=== PATIENT | male | born 1975 | race Caucasian/White ===

== ENCOUNTER 2022-02-08 08:48 | Outpatient (REF) | payer BC, SELFPAY ==
--- NOTE | 2022-02-08 08:59 | EMG_ITS ---
Right median and ulnar motor and sensory studies were performed, right radial sensory study was performed, and median and lateral antecubital sensory studies were performed. Paraspinal and some limb muscles were tested with a needle. IMPRESSION: 1. Mild right median neuropathy across carpal tunnel. 2. Chronic right lower cervical radiculopathy. MD NANDO Montoya/DONALD / [id number]
== END 2022-02-08 08:49 | disposition home or self-care (01) ==
LOC: HO.NEURO 08:48
PROVIDERS: PCP Registered Nurse; Visit Provider Registered Nurse
DX: M79.2 Neuralgia and neuritis, unspecified (principal); M79.601 Pain in right arm
CPT/HCPCS: 95886; 95910

== ENCOUNTER 2023-05-20 11:44 | Outpatient (REF) | payer MEDICAID, SELFPAY ==
[2023-05-20 13:14] LABS: MANUAL DIFF FLAG NO
[2023-05-20 13:29] LABS: Basophils Absolute Auto 0.1 X10*3/uL (0.0-0.2); Basophils Percent Auto 0.5 % (0-2); Eosinophils Absolute Auto 0.5 X10*3/uL (0.0-0.4); Eosinophils Percent Auto 3.9 % (0-4); Hematocrit 50.7 % (42.0-52.0); Imm Gran Abs Auto 0.05 X10*3/uL (0.00-0.03); Imm Gran Pct Auto 0.4 % (0.0-0.4); Lymphocytes Absolute Auto 2.4 X10*3/uL (1.2-4.9); Lymphocytes Percent Auto 19.5 % (20-40); Mean Corpuscular HGB Conc 33.5 g/dl (31.0-36.0); Mean Corpuscular Hemoglobin 30.4 pg (27.0-33.0); Mean Corpuscular Volume 90.5 fL (80.0-98.0); Mean Platelet Volume 11.2 fL (9.4-12.4); Monocytes Absolute Auto 0.9 X10*3/uL (0.1-1.2); Monocytes Percent Auto 7.6 % (2-11); Neutrophils Absolute Auto 8.2 x10*3/uL (2.0-8.3); Neutrophils Percent Auto 68.1 % (45-73); Platelet Count 351 X10*3/uL (160-400); Red Cell Distribution Width 12.8 % (11.0-16.0)
[2023-05-20 13:49] LABS: Appearance Urine Clear; Color Urine Dark Yellow; Glucose Urine UA 500 mg/dL (Negative); Leukocyte Esterase Urine Trace (Negative); Nitrite Urine Negative (Negative); PH 5.5 (5.0-9.0); Specific Gravity - Urine >= 1.030 (1.005-1.025); UMIC TRIGGER UACC YES; Urine Blood Negative (Negative); Urine Ketones Trace mg/dL (Negative); Urine Protein 30 (1+) mg/dL (Neg-Trace)
[2023-05-20 14:12] LABS: Bacteria Urine None Seen (None Seen); Hyaline Casts Urine 0-2 /LPF (0-2); UACC Culture Trigger YES
[2023-05-20 14:16] LABS: Alanine Aminotransferase 74 U/L (0-40); Albumin Level 4.2 g/dL (3.5-5.0); Alkaline Phosphatase 96 U/L (39-117); Anion Gap 13 (12-20); Aspartate Amino Transferase 28 U/L (5-37); Bilirubin Total 0.5 mg/dL (0.0-1.0); Blood Urea Nitrogen 18 mg/dL (9-16); Calcium 9.7 mg/dL (8.4-10.2); Carbon Dioxide 27 mmol/L (22-29); Chloride 101 mmol/L (96-108); Estimated Glomerular Filt Rate > 60; Glucose Random 220 mg/dL (60-115); Sodium 137 mmol/L (135-145); Total Protein 7.8 g/dL (6.5-8.0)
== END 2023-05-20 11:45 | disposition home or self-care (01) ==
LOC: HO.HHCL 11:44
PROVIDERS: Visit Provider Registered Nurse
DX: N17.9 Acute kidney failure, unspecified (principal)
CPT/HCPCS: 36415; 80053; 81001; 85025; 87086

== ENCOUNTER 2023-08-23 18:48 | Outpatient (REF) | payer MEDICAID, SELFPAY | END 2023-08-23 18:49 | disposition home or self-care (01) | LOC: HO.HHCLNP 18:48 | PROVIDERS: Visit Provider Registered Nurse | DX: L02.611 Cutaneous abscess of right foot (principal) | CPT/HCPCS: 87070; 87077; 87147; 87186; 87205 ==

== ENCOUNTER 2024-07-29 10:35 | Outpatient (REF) | payer MEDICAID, SELFPAY ==
--- OUTSIDE RECORDS SUMMARY | 2024-07-29 13:01 | XMS_ITS | Encounter Summary ---
Author Organization [employer] Address [address] [place] [address] [address] [place] [address] Care Team Providers Care Mmi Teacher Name Role Phone [facility] Primary Care Provider [phone] Reason for Visit * Reason Onset Date Comments Recieved Call 08/30/2023 Encounter Details Date Type Department Care Team ([facility] st Contact Info) Description 08/30/2023 Telephone [facility] MEDICINE [address] [place], [place] [phone] [facility] [address] [place] [address] Recieved Call Social History Tobacco Use Types Packs/Day Years Used Date Smoking Tobacco: Every Day Cigarettes Smokeless Tobacco: Never Alcohol Use Standard Drinks/Week Comments Yes 0 (1 standard drink = 0.6 oz pur e alcohol) socially Alcohol Answer Date Recorded Frequency of Alcohol Consumption Not on file 08/23/2023 Average Number of Drinks Not on file 024 Frequency of Binge Drinking Not on file 08/02 Score 0 08/23/2023 Depression Answer Date Recorded Patient Health Questionnaire-9 Score 0 08/23/2023 Patient Health Questionnaire-9 Score 0 08/23/2023 Last PHQ-9: Questionnaire Data Not on file 0 08/23/2023 Housing Stability Answer Date Recorded What is your housing situation today? I have roger preston 03/18/[address] you li ve. Do you have problems with any of the following? None of the above 03/18/2023 Food Insecurity Answer Date Recorded Within the past 12 months, y ou worried that your food would run out before you got money to buy more: Never True 03/18/2023 Within the past 12 months,th e food you bought just didn't last and you didn't have enough money to get more: Never True Transportation Answer Date Recorded In the past 12 months, has l ack of transportation kept you from medical appts, meetings, work or from getting things needed for daily living? No 03/18/2023 Utilities Answer Date Recorded In the past 12 months, has t he electric, gas, oil or water company threatened to shut off services in your home? No 05/20/2023 Depression Answer Date Recorded Patient Health Questionnaire-2 Score 0 08/23/2023 Sex and Gender Information Value Date Recorded Sex Assigned at Male 04/02/2022 10:22 AM EDT Legal Sex Male 10:22 AM EDT Gender Identity Male 04/02/2022 10:22 AM EDT Sexual Orientation Lesbian or [place] 04/02/2022 10 :22 AM EDT documented as of this encounter Miscellaneous Notes * Telephone Encounter - César Polo - 08/30/2023 10:42 AM EDT Tc from pt stating received a call this morning, literary writer didn't see any notations. documented in this encounter Plan of Treatment Not on file documented as of this encounter Visit Diagnoses Not on filedocumented in this encounter Additional Health Concerns Assessment Noted Time PHQ-9 Depression Total Score: 0 08/23/19 24 9:11 AM EDT documented as of this encounter Care Teams Mmi Teacher Relationship Specialty Start Date End Date Edwina Braxton FNP [address] [place] [address] PCP - General Family Medicine 03/01/21 documented as of this encounter
--- OUTSIDE RECORDS SUMMARY | 2024-07-29 13:02 | XMS_ITS | Encounter Summary ---
Author Organization [employer] Address [address] [place] [address] [address] [place] [address] Care Team Providers Care Well Service Derrick Worker Name Role Phone Edwina Braxton Primary Care Provider [phone] Encounter Details Date Type Department Care Team (Late st Contact Info) Description 12/05/2022 Abstract [facility] MEDICINE [address] [place], [place] [phone] Edwina Braxton FNP [address] [place] [address] Social History Tobacco Use Types Packs/Day Years Used Date Smoking Tobacco: Every Day Cigarettes Smokeless Tobacco: Never Alcohol Use Standard Drinks/Week Comments Never 0 (1 standard drink = 0.6 oz pur e alcohol) Sex and Gender Information Value Date Recorded Sex Assigned at Male 04/02/2022 10:22 AM EDT Legal Sex Male 10:22 AM EDT Gender Identity Male 04/02/2022 10:22 AM EDT Sexual Orientation Lesbian or [place] 04/02/2022 10 :22 AM EDT COVID-19 Exposure Response Date Recorded In the last 10 days, have yo u been in contact with someone who was confirmed or suspected to have Coronavirus/COVID-19? No / Unsure 11/21/2022 8:50 AM EDT documented as of this encounter Plan of Treatment Not on file documented as of this encounter Visit Diagnoses Not on filedocumented in this encounter Additional Health Concerns Assessment Noted Time PHQ-9 Depression Total Score: 0 06/28/19 23 11:27 AM EST documented as of this encounter Care Teams Well Service Derrick Worker Relationship Specialty Start Date End Date Edwina Braxton FNP [address] [place] [address] PCP - General Family Medicine 03/01/21 documented as of this encounter
--- OUTSIDE RECORDS SUMMARY | 2024-07-29 13:02 | XMS_ITS | Encounter Summary ---
Author Organization [employer] Address [address] [place] [address] [address] [place] [address] Care Team Providers Care Dry Cleaning Attendant Name Role Phone Edwina Braxton Primary Care Provider [phone] Encounter Details Date Type Department Care Team (Late st Contact Info) Description 12/05/2022 Abstract [facility] MEDICINE [address] [place], [place] [phone] Edwina Braxton FNP [address] [place] [address] Social History Tobacco Use Types Packs/Day Years [...] documented as of this encounter Care Teams Dry Cleaning Attendant Relationship Specialty Start Date End Date Edwina Braxton FNP [address] [place] [address] PCP - General Family Medicine 03/01/21 documented as of this encounter
--- OUTSIDE RECORDS SUMMARY | 2024-07-29 13:02 | XMS_ITS | Encounter Summary ---
Author Organization [employer] Address [address] [place] [address] 7 [place] [address] Care Team Providers Care Community Support Professional Name Role Phone [facility] Primary Care Provider [phone] Reason for Visit * Reason Comments Annual Exam Encounter Details Date Type Department Care Team ([facility] Contact Info) Description 07/29/2024 9:30 AM EST Office Visit [facility] & PEDS [address] [place], [place] [phone] [facility] [address] [place] [address] Type 2 diabetes mellitus with hyperglycemia, with long-term current use of insulin ([facility]); Type 2 diabetes mellitus with hyperglycemia, without long-term current use of insulin ([facility]) Social History Tobacco Use Types Packs/Day Years [...] Answer Date Recorded Patient Health Questionnaire-9 Score 4 07/29/2024 Patient Health Questionnaire-9 Score 4 07/29/2024 Last PHQ-9: Questionnaire Data Not on file 0 07/29/2024 Housing Stability Answer Date Recorded What is [...] Answer Date Recorded Patient Health Questionnaire-2 Score 2 07/29/2024 Internet Access Answer Date Recorded Internet Access Q1 Yes 07/15/2024 Internet Access Q2 Not on file 07/15/2024 Sex and Gender Information Value Date Recorded Sex Assigned at Male 04/02/2022 10:22 AM EDT Legal Sex Male 10:22 AM EDT Gender Identity Male 04/02/2022 10:22 AM EDT Sexual Orientation Lesbian or [place] 04/02/2022 10 :22 AM EDT documented as of this encounter Last Filed Vital Signs Vital Sign Reading Time Taken Comments Blood Pressure 94/57 07/29/2024 9:32 AM EST Pulse 108 07/29/2024 9:32 AM EST Temperature 36.9 ??C (98.5 ??F) 07/29/2024 9:32 AM ES T Respiratory Rate 20 07/29/2024 9:32 AM EST Oxygen Saturation 96% 07/29/2024 9:32 AM EST Inhaled Oxygen Concentration - - Weight 157 kg (346 lb) 07/29/2024 9:32 AM EST Height 177.8 cm (5' 10 ) 07/29/2024 9:32 AM EST Body Mass Index 49.65 07/29/2024 9:32 AM EST documented in this encounter Plan of Treatment Scheduled Orders Name Type Priority Associated Diagnoses Orde r Schedule Comprehensive Metabolic Panel Lab Routine Type 2 diabetes mellitus with hyperglycemia, with long-term current use of insulin ([facility]) Expected: 07/29/2024 (Approximate), Expires: 07/29/2025 CBC auto differential Lab Routine Type 2 diabetes mellitus with hyperglycemia, with long-term current use of insulin ([facility]) Expected: 07/29/2024 (Approximate), Expires: 07/29/2025 Sed Rate by Modified [place] Lab Routine Type 2 diabetes mellitus with hyperglycemia, with long-term current use of insulin ([facility]) Expected: 07/29/2024, Expires: 07/29/2025 C-reactive Protein Lab Routine Type 2 diabetes mellitus with hyperglycemia, with long-term current use of insulin ([facility]) Expected: 07/29/2024 (Approximate), Expires: 07/29/2025 documented as of this encounter Procedures Procedure Name Priority Date/Time Associated Diagnosis Comments POCT URINALYSIS DIPSTICK Routine 07/29/2024 11:06 AM EST Type 2 diabetes mellitus with hyperglycemia, with long-term current use of insulin ([facility]) POCT GLUCOSE Routine 07/29/2024 9:35 AM EST Type 2 diabetes mellitus with hyperglycemia, with long-term current use of insulin ([facility]) POCT GLYCATED HEMOGLOBIN, TOTAL Routine 07/29/2024 9:34 AM EST Type 2 diabetes mellitus with hyperglycemia, with long-term current use of insulin ([facility]) documented in this encounter Results * (ABNORMAL) POCT urinalysis dipstick manually resulted (07/29/2024 11:06 AM EST) Color, UA Yellow Clarity, UA Cloudy Glucose, UA 3+ 500+++ Comment:500 Bilirubin, UA Negative Ketones, UA Positive Comment:trace Spec Grav, UA 1.020 Blood, UA Positive(A) Negative, None Detected Comment:moderate pH, UA 6.0 Protein, UA Moderate Comment:100 mg/dL Urobilinogen, UA 0.2 Leukocytes, UA Many(A) Negative, Rare, Trace Nitrite, UA Negative Negative, None Detected Comment:small Appearance, UA cloudy QC Media Lot # Comment:[id number] Lot# Expiration Date Comment:03/02/2025 Urine 07/29/2024 11:0 6 AM EST Result [facility] POINT OF CARE TEST ENTER/EDIT ORDERABLES Final Result * (ABNORMAL) POCT glucose manually resulted (07/29/2024 9:35 AM EST) Glucose Blood, POC 500(A) 60 - 200 mg/dL Comment:[facility] QC Media Lot # Comment:[id number] Lot# Expiration Date Comment:12/03/2024 Blood Capillary blood specimen / Unknown 07/29/2024 9:35 AM EST Result [facility] POINT OF CARE TEST ENTER/EDIT ORDERABLES Final Result * (ABNORMAL) POCT A1C (07/29/2024 9:34 AM EST) Hemoglobin A1C 15.0(A) 4.0 - 6.0 % Comment:Error #106 (more maeve n 15.0) QC Media Lot # Comment:[id number] Lot# Expiration Date Comment:03/20/2026 Blood 07/29/2024 9:34 AM EST Result [facility] POINT OF CARE TEST ENTER/EDIT ORDERABLES Final Result documented in this encounter Visit Diagnoses Diagnosis Type 2 diabetes mellitus with hyperglycemia, with long-term current use of insulin ([facility]) Type 2 diabetes mellitus with hyperglycemia, without long-term current use of insulin ([facility]) documented in this encounter Administered Medications Inactive Administered Medications - up to 3 most recent administrations Medication Order MAR Action Action Date Dose Rate Site Insulin Lispro solution 10 Units 10 Units, Injection, Once, On Sat07/29/24 at 1015, For 1 doseIndications:Type 2 diabetes mellitus with hyperglycemia, with long-term current use of insulin ([facility]) Given 07/29/2024 10:15 AM EST 10 Units Right Arm documented in this encounter Additional Health Concerns Assessment Noted Time PHQ-9 Depression Total Score: 4 07/29/19 10:06 AM EST documented as of this encounter Care Teams Community Support Professional Relationship Specialty Start Date End Date IraisEdwina wood [facility] [address] [place] [address] PCP - General Family Medicine 03/01/21 documented as of this encounter
--- OUTSIDE RECORDS SUMMARY | 2024-07-29 13:02 | XMS_ITS | Encounter Summary ---
Author Organization [employer] Address [address] [place] [address] [address] [place] [address] Care Team Providers Care Maternity Floor Supervisor Name Role Phone Edwina Braxton Primary Care Provider [phone] Encounter Details Date Type Department Care Team (Late st Contact Info) Description 12/05/2022 Abstract [facility] MEDICINE [address] [place], [place] [phone] Edwina Braxton FNP [address] [place] [address] Social History Tobacco Use Types Packs/Day Years [...] documented as of this encounter Care Teams Maternity Floor Supervisor Relationship Specialty Start Date End Date Edwina Braxton FNP [address] [place] [address] PCP - General Family Medicine 03/01/21 documented as of this encounter
--- OUTSIDE RECORDS SUMMARY | 2024-07-29 13:02 | XMS_ITS | Encounter Summary ---
Author Organization [facility] Address [address] [place] [address] Phone Care Team Providers Care Bow Rehairer Name Role Phone [facility] Primary Care Provider [phone] Encounter Details Date Type Department Care Team (Late st Contact Info) Description 12/26/2021 Documentation Only [facility], [address] [place] [address] [facility] [address] [place] [address] Social History Tobacco Use Types Packs/Day Years Used Date Smoking Tobacco: Never Assessed Sex and Gender Information Value Date Recorded Sex Assigned at Not on file Legal Sex Male 10:40 AM EDT Gender Identity Not on file Sexual Orientation Not on file documented as of this encounter Plan of Treatment Not on file documented as of this encounter Visit Diagnoses Not on filedocumented in this encounter Care Teams Bow Rehairer Relationship Specialty Start Date End Date [facility] [address] [place] [address] PCP - General 07/03/22 documented as of this encounter
--- OUTSIDE RECORDS SUMMARY | 2024-07-29 13:02 | XMS_ITS | Continuity of Care Document ---
Author Organization [facility] Address [address] [place] [address] [address] [place] [address]- Care Team Providers Care Carbon Brushes Assembler Name Role Phone [place] CUSTOMER ASSISTANCE ASSOCIATE, Edwina Primary Care Physician Encounter [facility] [place] ACCT R [id number] Date(s): 06/17/24 - 07/17/[address] [place], [place] [address] Attending Physician: Ciera Rodgers Admitting Physician: Ciera Rodgers Referring Physician: AdmtrCiera Encounter Type: Triage Allergies, Adverse Reactions, Alerts Substance Criticality Severity Reaction Reaction Severity Status penicillin hives Resolved penicillin V potassium 1 hives Active procaine penicillin hives Active 1Outside Source Comment: Other reaction(s): questionable Medications amLODIPine 10 mg oral tablet 1 tablet = 10 mg, By Mouth, Daily in AM, # 30 tablet, 0 Refills, Maintenance, 05/02/23 1:51:00 AM EST, Tablet, Partial fill upon patient request if the prescription is for a schedule II opioid drug. Start Date: 05/02/23 Status: Ordered Quantity: 30.0 Unit: tablet Repeat number: 1 aspirin 81 mg oral delayed release tablet 81 mg, By Mouth, Daily, # 30 tablet, Refills 0, Tot. Refills 0, Maintenance, 11/24/22 12:40:00 PM EDT, Route to Pharmacy Electronically, [facility]/pharmacy #[id number], Partial fill upon patient request if the prescription is for a schedule II opioid drug., 179, cm, 11/23/22 20:09:00 EDT, Height, 173, kg, 11/23/22 10:58:00 EDT, Dry Weight Start Date: 11/24/22 Stop Date: 12/24/22 Status: Ordered Quantity: 30.0 Unit: tablet Repeat number: 1 atorvastatin 80 mg oral tablet 1 tablet = 80 mg, By Mouth, Daily in AM, # 90 tablet, 0 Refills, Maintenance, 05/02/23 1:51:00 AM EST, Tablet, Partial fill upon patient request if the prescription is for a schedule II opioid drug. Start Date: 05/02/23 Status: Ordered Quantity: 90.0 Unit: tablet Repeat number: 1 Colace sodium 100 mg oral capsule 100 mg, 1, capsule, By Mouth, 2 times a day, PRN, # 20 capsule, Refills 0, Tot. Refills 0, Maintenance, for constipation, 02/05/24 4:54:00 PM EDT, Route to Pharmacy Electronically, [facility], Partial fill upon patient request if the prescription is for a schedule II opioid drug., 177.8, cm, 02/05/24 10:39:00 EDT, Height, 160.9, kg, 02/05/24 10:39:00 EDT, Dry Weight Start Date: 02/05/24 Status: Ordered Quantity: 20.0 Unit: capsule Repeat number: 1 Colace sodium 100 mg oral capsule 100 mg, 1, capsule, By Mouth, 2 times a day, # 60 capsule, Refills 0, Tot. Refills 0, Maintenance, 11/26/23 8:25:00 AM EDT, Route to Pharmacy Electronically, [facility], Partial fill upon patient request if the prescription is for a schedule II opioid drug., 178, cm, 11/23/23 9:38:00 ED T, Height, 167, kg, 11/21/23 8:50:00 EDT, Dry Weight Start Date: 11/26/23 Status: Ordered Quantity: 60.0 Unit: capsule Repeat number: 1 Eliquis 5 mg oral tablet 1 tablet = 5 mg, By Mouth, 2 times a day, # 60 tablet, 5 Refills, Maintenance, 05/02/23 1:51:00 AM EST, Tablet, Partial fill upon patient request if the prescription is for a schedule II opioid drug. Start Date: 05/02/23 Status: Ordered Quantity: 60.0 Unit: tablet Repeat number: 1 escitalopram 20 mg oral tablet 1 tablet = 20 mg, By Mouth, Daily in AM, # 30 tablet, 0 Refills, Maintenance, 11/10/23 11:34:00 AM EDT, Tablet, Partial fill upon patient request if the prescription is for a schedule II opioid drug. Start Date: 11/10/23 Status: Ordered Quantity: 30.0 Unit: tablet Repeat number: 1 Flomax 0.4 mg oral capsule 0.4 mg, By Mouth, Daily at bedtime, # 7 capsule, Refills 0, Tot. Refills 0, Maintenance, 02/06/24 11:55:00 AM EDT, Route to Pharmacy Electronically, [facility], Partial fill upon patient request if the prescription is for a schedule II opioid drug., 177.8, cm, 02/06/24 7:36:00 EDT, Height, 160.9, kg, 02/05/24 10:39:00 EDT, Dry Weight Start Date: 02/06/24 Stop Date: 02/13/24 Status: Ordered Quantity: 7.0 Unit: capsule Repeat number: 1 isopropyl alcohol 70% topical pad 100 each, 0 Refill(s), USE TO CHECK BLOOD SUGAR FOUR TIMES A DAY, 0 Refills, 12/23/23 11:02:00 AM EDT, Partial fill upon patient request if the prescription is for a schedule II opioid drug. Start Date: 12/23/23 Status: Ordered Repeat number: 1 Lantus Solostar Pen 100 units/mL subcutaneous solution = 15 units, Subcutaneous Injection, Daily at bedtime, # 10 mL, 0 Refills, Maintenance, 05/02/23 1:53:00 AM EST, Solution, Partial fill upon patient request if the prescription is for a schedule II opioid drug. Start Date: 05/02/23 Status: Ordered Quantity: 10.0 Unit: mL Repeat number: 1 lidocaine 5% topical film 1 patch, Topically, Daily, PRN Pain , Mild, remove after 12 hours, # 13 each, 0 Refills, Maintenance, 05/02/23 1:52:00 AM EST, Film, Partial fill upon patient request if the prescription is for a schedule II opioid drug. Start Date: 05/02/23 Status: Ordered Quantity: 13.0 Unit: each Repeat number: 1 LORazepam 0.5 mg oral tablet 1 tablet = 0.5 mg, By Mouth, Every 8 hours, PRN as needed for anxiety, 0 Refills, Maintenance, 05/02/23 1:53:00 AM EST, Tablet, Partial fill upon patient request if the prescription is for a scheduleII opioid drug. Start Date: 05/02/23 Status: Ordered Repeat number: 1 MetFORMIN (Eqv-Glucophage XR) 500 mg oral tablet, extended release 1 tablet = 500 mg, By Mouth, Daily in AM, TAKE 1 TABLET DAILY BY MOUTH. IF TOLERATING WELL MAY INCREASE TO 1 TABLET TWICE DAILY Start Date: 05/02/23 Status: Ordered Repeat number: 1 Mounjaro 2.5 mg/0.5 mL subcutaneous solution = 2.5 mg, Subcutaneous Injection, Every week, DIRECTED Start Date: 11/10/23 Status: Ordered Repeat number: 1 nicotine 21 mg/24 hr transdermal film, extended release 1 patch, Topically, Daily, # 30 patch, 0 Refills, Maintenance, 05/02/23 1:53:00 AM EST, Patch, Partial fill upon patient request if the prescription is for a schedule II opioid drug. Start Date: 05/02/23 Status: Ordered Quantity: 30.0 Unit: patch Repeat number: 1 olmesartan 5 mg oral tablet 2 tablet = 10 mg, By Mouth, Daily in AM, # 60 tablet, 0 Refills, Maintenance, 05/02/23 1:50:00 AM EST, Tablet, Partial fill upon patient request if the prescription is for a schedule II opioid drug. Start Date: 05/02/23 Status: Ordered Quantity: 60.0 Unit: tablet Repeat number: 1 pantoprazole 40 mg oral delayed release tablet 1 tablet = 40 mg, By Mouth, Daily at supper, TAKE 1 TABLET (40 MG) BY MOUTH BEFORE BREAKFAST Start Date: 05/02/23 Status: Ordered Repeat number: 1 Toudarion Max SoloStar 300 units/mL subcutaneous solution INJECT 40 UNITS SUBCUTANEOUSLY EVERY DAY AT BEDTIME MAY INCREASE BY 2 UNITS EVERY 3 DAYS UP TO max OF 50 UNITS Start Date: 11/10/23 Status: Ordered Repeat number: 1 Trulicity Pen 4.5 mg/0.5 mL subcutaneous solution = 0.5 mL, Subcutaneous Injection, Every week, rotate injection sites, # 2 mL, 0 Refills, Maintenance, 05/02/23 1:51:00 AM EST, Solution, Partial fill upon patient request if the prescription is for aschedule II opioid drug. Start Date: 05/02/23 Status: Ordered Quantity: 2.0 Unit: mL Repeat number: 1 Problem List Condition Confirmation Course Effective Dates Status Health St atus Informant Anxiety Confirmed Active Atrial fibrillation Confirmed Active Stroke Confirmed Active Diabetes mellitus Confirmed Active General medical Confirmed Active HLD (hyperlipidemia) Confirmed Active HTN (hypertension) Confirmed Active Pre-syncope Confirmed Active Obesity Confirmed Active Open wound of groin Confirmed Active Open wound of groin Confirmed Active Severe obesity Confirmed Active Severe obesity Confirmed Active Tobacco use Confirmed Active Brain TIA Confirmed Active Social History Social History Type Response Smoking Status Smoker, current stat us unknown; Other: Quitting today, 05/02, was smoking 0.5 - 1 ppd for 17 years; entered on: 05/02/23 Sex Sex Representation Male (finding) Patient Care team information Care Team Personnel Name: Sherly Alvarez RN Position: [facility] RN Member Role: Primary Care Nurse Name: Arnold Paris RN Position: [facility] ED RN W/OE and Tasks Member Role: Primary Care Nurse Name: Saravanan Villalobos RN Position: [facility] RN Member Role: Primary Care Nurse Name: Jodie Morley RN Position: [facility] RN Member Role: Primary Care Nurse Name: Crista Leal RN Position: [facility] RN Member Role: Primary Care Nurse Name: Tahir Bunch RN Position: [facility] RN Member Role: Primary Care Nurse Name: Antonio Olson LPN Position: [facility] RN Member Role: Primary Care Nurse Name: Adalberto Jaime RN Position: [facility] RN Member Role: Primary Care Nurse Name: Felicia Petersen RN Position: [facility] RN Member Role: Primary Care Nurse Name: Jasson Jc RN Position: [facility] RN Member Role: Primary Care Nurse Name: Suzy Dubon RN Position: [facility] RN Member Role: Primary Care Nurse Name: Marlen Fagan RN Position: [facility] RN Member Role: Primary Care Nurse Name: Ioana Del Rio RN Position: [facility] RN Member Role: Primary Care Nurse Name: Malathi Franklin RN Position: [facility] RN Member Role: Primary Care Nurse Name: Zabrina Villalobos RN Position: [facility] RN Member Role: Primary Care Nurse Name: Nghia Beach RN Position: [facility] RN Member Role: Primary Care Nurse Name: Irais CUSTOMER ASSISTANCE ASSOCIATEEdwina Position: Reference Physician Member Role: PCP Address: [address] [place] [address]- Telecom: Name: Danie De La Garza RN Position: [facility] RN Member Role: Primary Care Nurse Name: Tessie Logan RN Position: [facility] ED RN W/OE and Tasks Member Role: Primary Care Nurse Name: Willie Jay Position: S RN Member Role: Primary Care Nurse Care Team Related Persons Name: BERONICA LIGHT Name: BERONICA LIGHT Insurance Providers Guarantor name: ROBY Health Plan Information #: 1 Payer: [employer] Member Number: ROBY Policy Number: ROBY Group Number: [id number]
--- OUTSIDE RECORDS SUMMARY | 2024-07-29 13:02 | XMS_ITS | Encounter Summary ---
Author Organization [email or web address] Address [address] [place] [address] [address] [place] [address] Care Team Providers Care Network Manager Name Role Phone Edwina Braxton Primary Care Provider [phone] Encounter Details Date Type Department Care Team (Late st Contact Info) Description 12/05/[address] [facility] MEDICINE [address] [place], [place] [id number] Edwina Braxton FNP [address] [place] [address] Social History Tobacco Use Types Packs/Day Years [...] documented as of this encounter Care Teams Network Manager Relationship Specialty Start Date End Date Edwina Braxton FNP [address] [place] [address] PCP - General Family Medicine 03/01/21 documented as of this encounter
--- OUTSIDE RECORDS SUMMARY | 2024-07-29 13:02 | XMS_ITS | Clinical Summary ---
Author Organization [employer] Address [address] [place] [address] 7 [place] [address] Care Team Providers Care Mark Up Designer Name Role Phone Edwina Braxton [facility] Primary Care Provider [phone] Allergies Active Allergy Reactions Criticality Noted Date Comments Penicillin G 02/12/2022 Penicillin V Other reaction(s): questionable Potassium 02/12/2022 Medications * This document contains information received from the source organization and may not represent a complete record from that organization. nicotine polacrilex (Commit) 4 MG lozengeIndicati ons:Smoking 1/2 pack a day or less Dissolve 1 lozenge (4 mg) in the mouth every 2 (two) hours if needed for smoking cessation. 100 lozenge 1 023 Active acetaminophen (Tylenol) 500 MG tablet Take 1 tablet by mouth every 12 (twelve) hours if needed. Active Blood Glucose Monitoring Suppl (GNP Easy Touch Glucose Meter) deviceIndicatio ns:Type 2 diabetes mellitus with hyperglycemia, without long-term current use of insulin ([facility]) Use as directed to check blood sugar four times daily 1 each 023 Active lidocaine (Lidoderm) 5 % patchIndication s:Neuralgia APPLY 1 PATCH IN THE MORNING REMOVE AND DISARD PATCH WITHIN 12 HOURS OR DIRECTED 90 patch 3 024 Active Emollient (Aquaphor Advanced Therapy) 41 % ointmentIndicat ions:Type 2 diabetes mellitus with hyperglycemia, without long-term current use of insulin (CMS/HCC) Apply 2 Applications topically 2 times daily. 50 g 3 024 2024 Active Continuous Glucose Customer Success Director (FreeStyle Shivam 2 [place]) deviceIndicatio ns:Type 2 diabetes mellitus with hyperglycemia, with long-term current use of insulin ([facility]) Scan sensor every 8 hours 1 each Active Continuous Glucose Sensor (FreeStyle Shivam 2 Sensor) miscIndications :Type 2 diabetes mellitus with hyperglycemia, with long-term current use of insulin (CMS/HCC) Apply 1 sensor every 14 days 2 each 2 Active metFORMIN XR (Glucophage-XR) 500 MG 24 hr tabletIndicatio ns:Type 2 diabetes mellitus with hyperglycemia, without long-term current use of insulin (CMS/[facility]) TAKE 1 TABLET DAILY BY MOUTH. IF TOLERATING WELL MAY INCREASE TO 1 TABLET TWICE DAILY 180 tablet 1 Active escitalopram (Lexapro) 20 MG tabletIndicatio ns:Anxiety and depression Take 1 tablet (20 mg) by mouth Once per day. OK to increase to 10mg if tolerating well 90 tablet 1 024 2024 Active Aspirin Low Dose 81 MG EC tabletIndicatio ns:Type 2 diabetes mellitus with hyperglycemia, without long-term current use of insulin ([facility]) TAKE 1 TABLET (81 MG) BY MOUTH IN THE MORNING 90 tablet 3 024 2024 Active Eliquis 5 MG tabletIndicatio ns:History of stroke TAKE 1 TABLET BY MOUTH TWICE A DAY IN THE MORNING AND IN THE EVENING 180 tablet 1 Active olmesartan (BENIcar) 5 MG tabletIndicatio ns:Primary hypertension TAKE 2 TABLETS BY MOUTH EVERY MORNING 180 tablet 1 Active atorvastatin (Lipitor) 80 MG tabletIndicatio ns:History of stroke TAKE 1 TABLET (80 MG) BY MOUTH IN THE MORNING 90 tablet 1 Active pantoprazole (ProtoNix) 40 MG EC tabletIndicatio ns:History of stroke TAKE 1 TABLET (40 MG) BY MOUTH BEFORE BREAKFAST 90 tablet 1 Active Alcohol Swabs (Alcohol Prep) 70 % padsIndications :Type 2 diabetes mellitus with hyperglycemia, without long-term current use of insulin (CMS/[facility]) USE TO CHECK BLOOD SUGAR FOUR TIMES A DAY 100 each 11 Active nicotine (Nicoderm, Step 1) 21 MG/24HR patch PLACE 1 PATCH ON THE SKIN 1 TIME EACH DAY AT THE SAME TIME. 28 patch 3 Active FreeStyle lancetsIndicati ons:Type 2 diabetes mellitus with hyperglycemia, without long-term current use of insulin (CMS/HCC) USE DIRECTED TO CHECK BLOOD SUGAR FOUR TIMES DAILY 100 each 5 Active amLODIPine (Norvasc) 10 MG tabletIndicatio ns:Primary hypertension TAKE 1 TABLET BY MOUTH EVERY MORNING 90 tablet 3 025 Active LORazepam (Ativan) 0.5 MG tabletIndicatio ns:Anxiety and depression TAKE 1 TABLET (0.5 MG) BY MOUTH EVERY 6 (SIX) HOURS IF NEEDED FOR ANXIETY. 10 tablet Active glucose blood (FREESTYLE LITE) test stripIndication s:Type 2 diabetes mellitus with hyperglycemia, without long-term current use of insulin ([facility]) USE DIRECTED TO CHECK BLOOD SUGAR FOUR TIMES DAILY 100 strip 11 Active Tirzepatide (Mounjaro) 5 MG/0.5ML solution auto-injectorIn dications:Type 2 diabetes mellitus with hyperglycemia, with long-term current use of insulin ([facility]) Inject 5 mg under the skin 1 (one) time per week. 2 mL 3 Active insulin glargine (Lantus SoloStar) 100 UNIT/ML penIndications: Type 2 diabetes mellitus with hyperglycemia, with long-term current use of insulin ([facility]) Inject 24 Units under the skin at bedtime. 3 mL 12 025 2025 Active nitrofurantoin, macrocrystal-mo nohydrate, (Macrobid) 100 MG capsuleIndicati ons:Type 2 diabetes mellitus with hyperglycemia, with long-term current use of insulin ([facility]) Take 1 capsule (100 mg) by mouth 2 times daily for 7 days. 14 capsule 025 2024 Active insulin pen needle (B-D UF III MINI PEN NEEDLES) 31G x 5 mm miscIndications :Type 2 diabetes mellitus with hyperglycemia, without long-term current use of insulin ([facility]/HCC) USE INSTRUCTED 100 each 11 025 Active glucose blood test stripIndication s:Type 2 diabetes mellitus with hyperglycemia, without long-term current use of insulin ([facility]/HCC) Use as directed to check blood sugar four times daily 100 each 12 023 2024 Discontinued insulin glargine (Toujeo Max SoloStar) 300 UNIT/ML injectionIndica tions:Type 2 diabetes mellitus with hyperglycemia, with long-term current use of insulin (CMS/HCC) Inject 40 Units under the skin at bedtime. May self titrate 2 units every 3 days up to max dose of 50 units 1.5 mL 12 024 2024 Discontinued Tirzepatide (Mounjaro) 2.5 MG/0.5ML solution pen-injectorInd ications:Type 2 diabetes mellitus with hyperglycemia, with long-term current use of insulin (CMS/HCC) Inject 2.5 mg under the skin 1 (one) time per week. 2 mL 2 024 2024 Discontinued insulin pen needle (B-D UF III MINI PEN NEEDLES) 31G x 5 mm miscIndications :Type 2 diabetes mellitus with hyperglycemia, without long-term current use of insulin (CMS/HCC) USE INSTRUCTED 100 each 11 024 2024 Discontinued LORazepam (Ativan) 0.5 MG tabletIndicatio ns:Anxiety and depression TAKE 1 TABLET (0.5 MG) BY MOUTH EVERY 6 (SIX) HOURS IF NEEDED FOR ANXIETY. 10 tablet 024 2024 Discontinued Tirzepatide (Mounjaro) 2.5 MG/0.5ML solution auto-injectorIn dications:Type 2 diabetes mellitus with hyperglycemia, without long-term current use of insulin (CMS/HCC) INJECT THE CONTENTS OF 1 PEN SUBCUTANEOUSLY ONCE WEEKLY 2 mL 2 025 2024 Discontinued Hospital, Clinic, or Other Facility Administered Medication Ordered Dose Route Frequency Start Date End Date Status Insulin Lispro solution 10 UnitsIndications:Type 2 diabetes mellitus with hyperglycemia, with long-term current use of insulin (CMS/HCC) 10 Units IJ Once 07/29/2024 07/29/2024 Ended Active Problems Problem Noted Date Diagnosed Date Cerebral atherosclerosis 02/05/2023 Tobacco use 12/12/2022 Type 2 diabetes mellitus wit h hyperglycemia, without long-term current use of insulin 08/07/2022 Overview (06/10/2023): ?? Metformin 500mg XR ?? Trulicity 4.5mg SQ ?? Lantus 15 units ?? Elbert OSBORNE initiated A1c 02/22/23-9.3% BMP: 06/2022, WNL Microalbumin: Pending Foot Exam: Complete at follow up Eye Exam: Referred 04/03/2023 Lipid panel: 11/2022 Statin: Yes ASA: No KINDRA/ARB: No Encouraged regular aerobic exercise for improved glycemic control Encouraged daily foot checks Encouraged lean protein snacks and to avoid foods high in sugar and simple carbohydrates Treatment Goals: A1c goal: <7% FBG goal: <130 ?? 2 hour post prandial goal: <180 Assessment & Plan (06/10/2023 11:59 AM EST): Lab Results Component Value Date HGBA1C 10.1 (A) 04/22/2023 ?? BS data not available today ?? Pt OK to self increase by 2 units lantus q 3 days until FBG in morning <130 ?? Will order CGM and check on status of elbert OSBORNE Assessment & Plan (05/05/2023 10:54 AM EST): Lab Results Component Value Date HGBA1C 10.1 (A) 04/22/2023 ?? START lantus 15 units at bedtime ?? Will initiate PA for elbert start ?? Accepts referral to [facility] DM educator Assessment & Plan (04/03/2023 2:55 PM EDT): Lab Results Component Value Date HGBA1C 9.1 (A) 03/18/2023 ?? A1c improving ?? INCREASE trulicity to 4.5mg subcutaneous ?? Consider switch to mounjaro at follow up Assessment & Plan (02/05/2023 1:07 PM EDT): Lab Results Component Value Date HGBA1C 9.3 (A) 01/14/2023 ?? A1c improving from 9.5 ?? INCREASE trulicity to 3mg ?? Declines referral to DM educator Assessment & Plan (11/07/2022 9:58 AM EDT): Lab Results Component Value Date HGBA1C 9.5 (A) 11/06/2022 ?? START trulicity .75mg subcutaneous. Reviewed administration, risks, side effects ?? CONTINUE metformin 500mg daily. Pt unable to tolerate higher dose ?? Plan to titrate trulicity up to 1.5mg subcutaneous in 2 weeks Assessment & Plan (08/17/2022 9:59 AM EDT): Lab Results Component Value Date HGBA1C 7.2 (H) 07/02/2022 ?? Continue metformin 500mg XR; pt will self increase to twice daily if tolerating Assessment & Plan (08/17/2022 9:37 AM EDT): Lab Results Component Value Date HGBA1C 7.2 (H) 07/02/2022 ?? Continue metformin 500mg XR; pt will self increase to twice daily if tolerating Smoking 1/2 pack a day or less 07/01/2022 Overview (07/01/2022): ?? Previously unable to tolerate chantix (side effects) Assessment & Plan (02/05/2023 12:13 PM EDT): ?? Has patches/lozenges at home ?? Declines referral to pharmacy for cessation Assessment & Plan (08/17/2022 10:00 AM EDT): ?? Continue nicotine lozenges Assessment & Plan (07/01/2022 3:20 PM EST): ?? Pt highly motivated for cessation ?? START nicotine replacement lozenges Healthcare maintenance 07/01/2022 Overview (04/03/2023): C-Scope: Cologuard negative 11/2022 HCV Screen: neg 06/2022 HIV Screen: Neg 06/2022 Vision Exam:Referral placed 04/2023 Dental Care: Discuss at follow up Immunizations: Declines flu and covid due to prior reactions Assessment & Plan (11/07/2022 9:59 AM EDT): ?? Cologuard did not arrive ?? Will re order today ?? Accepts PCV20 ?? Declines COVID booster. Assessment & Plan (08/17/2022 10:00 AM EDT): ?? Will reorder cologuard today Neuralgia 07/01/2022 Overview (02/05/2023): ?? Unable to tolerate pregabalin or gabapentin (dizziness). Trialed duloxetine w/o improvement ?? Lidocaine patches helpful ?? Persistent right UE pain/tingling/weakness since initial ?? CVA02/2022 RUE Nerve conduction with mild medial neuropathy and chronic right lower cervical radiculopathy ?? Previously seen [place] [facility] [place]10/2021 who did not feel [facility] was a good candidate for services at the time. Patient is not interested in additional pain mngmt eval. Assessment & Plan (04/03/2023 2:52 PM EDT): ?? Reviewed treatment options with patient including physical therapy and referral to pain mngmt. Pt declines further outside referrals at this time ?? Pt interested in trial of alternative treatment. Pt open to trigger point injection. Will refer patient to Dr. Ferguson for appointment ?? Continue ALA supplementation Assessment & Plan (02/05/2023 1:03 PM EDT): ?? Reviewed treatment options with patient including physical therapy and referral to pain mngmt. Pt declines further outside referrals at this time ?? Pt interested in trial of alternative treatment. Pt open to trigger point injection. Will refer patient to Dr. Ferguson for appointment ?? Continue ALA supplementation Assessment & Plan (08/07/2022 1:30 PM EST): ?? Lidocaine patches refilled Anxiety and depression 07/01/2022 Overview (05/05/2023): ?? Ativan PRN for panic attacks Assessment & Plan (05/05/2023 10:56 AM EST): ?? START lexapro 5mg daily-increase to 10mg daily if tolerating well ?? Reviewed administration, risks, side effects to include feeling anxious, jittery, or restless, trouble sleeping, fatigue, headaches, nausea or upset stomach, dry mouth, sexual dysfunction and weight gain. Stop taking this medication and seek immediate medical care if experiencing thoughts of suicide, fever, muscle rigidity, changes in blood pressure or heart palpitations. Risk of rare but serious side effects increases if taking multiple medications for depression or anxiety simultaneously. ?? Refill ativan. PDMP reviewed. Medicaiton used sparingly by patient. ?? Declines referral to [facility] Cerebrovascular accident 06/28/2022 Overview (03/18/2023): ?? 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 Persistent right sided neuralgia ?? 09/2021 episode of recurrent sx suspected possible TIA versus recrudescence of prior stroke. CT of head/neck at this time with ? subtle hypodensity in the right globus pallidus or genu of the right internal capsule compatible with age indeterminate lacunar infarct. MRI w/ no acute changes w/ ? right basal ganglia lacunar infarct and periventricular white matter disease, new from prior but chronic in nature. Chronic left posterior medullary infarct noted? . ? ? Seen [place] [facility] [place]22[place]22 with right sided weakness. CTA h/n with anterior cerebral artery atherosclerosis but no large vessel occlusion. Brain MRI with subacute right frontal infarct and left front periventricular subacute infarct. EKG NSR, A1c 9.0, LDL 47. Sx self-resolved 11/23/22. ASA 81mg added to daily regimen in addition to eliquis. Assessment & Plan (05/05/2023 11:01 AM EST): ?? Will request lab results for hypercoag work up from [facility] ?? Continue ASA and eliquis Assessment & Plan (04/03/2023 2:47 PM EDT): ?? Continue daily ASA 81mg ?? Continue eliquis 5mg daily ?? Encouraged smoking cessation and weight loss Assessment & Plan (02/05/2023 12:11 PM EDT): ?? Will request recent [facility] echo and MRI report ?? Follow up as scheduled with neurology ?? Continue daily ASA 81mg and eliquis ?? Continue high dose statin therapy ?? ED precautions reviewed to include facial drooping, numbness/weakness in extremities that is changed from baseline Hypertension 02/12/2022 Overview (01/14/2023): ?? Olmesartan 5mg daily ?? Amlodipine 10mg ?? Previous intolerance to multiple agents due to dizziness and labile HTN. Lisinopril, olmesartan, hydrochlorothiazide, amlodipine (edema) Maintenance: BMP: 06/2022 Lipid Panel: 06/2022 - Aerobic exercise to reduce BP. Initial goal of 30 min walk 3-5x/week. Increase as tolerated. - low-sodium diet (goal: <2g/day) and heart healthy diet such as DASH to reduce BP and prevent ASCVD. - Home BP monitoring 1-2 x day with goal of <140/90. - Seek immediate medical attention for chest pain, palpitations, SOB, syncope, or sudden changes in mental status. - Do not change or discontinue current prescriptions without first consulting health care provider Assessment & Plan (05/05/2023 10:52 AM EST): ?? INCREASE olmesartan to 10mg daily ?? Continue amlodipine 10mg daily ?? Goal BP <130/80 Assessment & Plan (04/03/2023 2:50 PM EDT): ?? BP elevated ?? INCREASE amlodipine to 10mg daily Assessment & Plan (02/05/2023 12:12 PM EDT): ?? BP with mild elevation in office. Pt asx. Will hold off on any medication changes given patient's previous intolerance. ?? Pt will continue to monitor ?? Pt will focus on low-sodium diet and tobacco cessation Assessment & Plan (11/07/2022 9:56 AM EDT): ?? RESTART olmesartan 5mg daily ?? RN BP check 2 weeks ?? Routine labs ordered Assessment & Plan (08/17/2022 9:35 AM EDT): BP remains slightly above goal. Discussed option of increasing v trying alternate agent however patient prefers to continue current dose and focus on lifestyle interventions ?? Continue torsemide 10mg daily Assessment & Plan (08/07/2022 1:29 PM EST): ?? Continue torsemide 10mg daily ?? Continue to monitor BP Assessment & Plan (07/01/2022 3:18 PM EST): Blood pressure not within goal. Given that patient frequently experiences dependent edema, will trial low dose of torsemide. Will also refer back to nephrology as patient will benefit from ambulatory BP monitoring. ?? START torsemide 10mg daily, reviewed administration, risks, side effects ?? Continue to monitor BP at home. Will call patient for 2 week tele follow up with repeat BMP at this time Hyperlipidemia 07/28/2021 Overview (07/01/2022): ?? Atorvastatin 80mg daily Severe obesity 07/28/2021 Assessment & Plan (07/01/2022 3:19 PM EST): ?? Pt provided with info for education session at [facility] ?? Referral placed for bariatric surgery Paroxysmal atrial fibrillation 06/30/2021 Overview (07/01/2022): ?? Stable on eliquis Resolved Problems Problem Noted Date Diagnosed Date Resolved Date Prediabetes 07/28/2021 08/07/2022 Encounters Date Type Department Care Team Description 07/29/2024 9:30 AM EST Office Visit [facility] [address] [place] [address] Mobile Edwina, [facility] Type 2 diabetes mellitus with hyperglycemia, with long-term current use of insulin ([facility]); Type 2 diabetes mellitus with hyperglycemia, without long-term current use of insulin ([facility]) 07/29/2024 Refill [facility] [address] [place] [address] [facility] Type 2 diabetes mellitus with hyperglycemia, without long-term current use of insulin ([facility]) 07/29/2024 Travel 07/28/2024 Travel 07/15/2024 Patient Outreach [facility] [address] [place] [address] [facility] Pre-visit Planning (SDOH screening negative and Tobacco screening negative) 07/10/2024 Refill [facility] [address] [place], [place] [phone] [facility] Type 2 diabetes mellitus with hyperglycemia, without long-term current use of insulin ([facility]) 07/10/2024 Refill [facility] [address], [place] [phone] Laura Ferguson MD Anxiety and depression 06/15/2024 Refill [facility] [address] [place], [place] [phone] [facility] Primary hypertension 06/09/2024 Refill [facility] [address] [place], [place] [phone] Danie Fitch MD Type 2 diabetes mellitus with hyperglycemia, without long-term current use of insulin ([facility]) 05/31/2024 Refill [facility] [address] [place], [place] [phone] [facility] Type 2 diabetes mellitus with hyperglycemia, without long-term current use of insulin ([facility]); Anxiety and depression from Last 3 Months Immunizations Name Administration Dates Next Due Hep B, adult 08/23/2021,,01/27/2003,09/09/2002,,12/19/2001 MMR 12/19/2001 Pneumococcal Conjugate PCV 20 11/06/2022 Td (adult), unspecified 12/19/2001 Tdap 08/23/2021 Social History Tobacco Use Types Packs/Day Years Used Date Smoking Tobacco: Every Day Cigarettes Smokeless Tobacco: Never Tobacco Cessation:Ready to Q uit: Not Asked; Counseling Given: Not Answered Alcohol Use Standard Drinks/Week Comments Yes 0 [...] or [place] 04/02/2022 10 :22 AM EDT Last Filed Vital Signs Vital Sign Reading [...] Mass Index 49.65 07/29/2024 9:32 AM EST Plan of Treatment Health Maintenance Due Date Last Done Comments CT Colonography 1976 Colonoscopy 1976 Colorectal Cancer Screening 1976 FIT DNA/Cologuard 1976 FIT 1976 FOBT 1976 Sigmoidoscopy 1976 Eye Exam 1986 Family Planning (PISQ) 12/02/1991 Diabetes: Urine Protein Screening 12/02/1995 Hepatitis A Vaccines (1 of 2 - Risk 2-dose series) 12/02/1995 Lipid Panel 11/07/2023 11/06/2022, 06/05, 07/14/2021 COVID-19 Vaccine ( season) 2024 06/10/2021, 08/29/2020, 08/07/2020 Influenza Vaccine (#1) 2024 Alcohol/Substance Use Screening 08/22/2024 08/23/2023 Diabetes: Foot Exam 08/22/2024 08/23/2023, 08/23/2023, 08/23/2023, Additional history exists Tobacco Screening 09/20/2024 09/21/2023 Diabetes: Hemoglobin A1C 10/26/2024 025, 08/23/2023, 04/22/2023, Additional history exists SDOH Screening 07/15/2025 07/15/2024 Depression Screening 07/29/2025 07/29/2024, 07/29/19 25 Zoster Vaccines (1 of 2) 2026 DTaP/Tdap/Td Vaccines (2 - Td or Tdap) 08/24/2031 08/23/2021, 12/19/2001 RSV Patients and Patients Aged 60 years or older (1 - 1-dose 75+ series) 12/02/2051 HIV Screening Completed 07/14/2021 Hepatitis C Screening Completed 07/14/2021 Hepatitis B Vaccines Completed 08/23/2021, 07/26/2021, 01/27/2003, Additional history exists Pneumococcal Vaccine: Pediatrics (0 to 5 Years) and At-Risk Patients (6 to 49) Years) Completed 11/06/2022 HIB Vaccines Aged Out No longer eligi ble based on patient's age to complete this topic HPV Vaccines Aged Out No longer eligi ble based on patient's age to complete this topic IPV Vaccines Aged Out No longer eligi ble based on patient's age to complete this topic Meningococcal Vaccine Aged Out No marco terence eligible based on patient's age to complete this topic RSV under 20 months Aged Out No longe r eligible based on patient's age to complete this topic Rotavirus Vaccines Aged Out No longer eligible based on patient's age to complete this topic Procedures Procedure Name Priority Date/Time Associated Diagnosis Comments POCT URINALYSIS DIPSTICK Routine 07/29/2024 11:06 AM EST Type 2 diabetes mellitus with hyperglycemia, with long-term current use of insulin (CMS/[facility]) POCT GLUCOSE Routine 07/29/2024 9:35 AM EST Type 2 diabetes mellitus with hyperglycemia, with long-term current use of insulin (CMS/[facility]) POCT GLYCATED HEMOGLOBIN, TOTAL Routine 07/29/2024 9:34 AM EST Type 2 diabetes mellitus with hyperglycemia, with long-term current use of insulin (CMS/[facility]) LIPID PANEL, STANDARD Routine 11/06/2022 9:59 AM EDT Type 2 diabetes mellitus with hyperglycemia, without long-term current use of insulin ([facility]) ZZZ HISTORICAL HEPATITIS C AB W/REFL TO HCV RNA, QN, PCR Routine 07/14/2021 10:33 AM EST HIV 1/2 ANTIGEN/ANTIBODY, FOURTH GENERATION W/RFL Routine 07/14/2021 10:33 AM EST from Last 3 Months or Most Recently Relevant to Health Maintenance Results * (ABNORMAL) POCT urinalysis dipstick manually [...] Appearance, UA cloudy QC Media Lot # Comment:[id number] Lot# Expiration Date Comment:03/02/2025 Urine 07/29/2024 11:0 6 AM EST Result [facility] POINT OF CARE TEST ENTER/EDIT ORDERABLES Final Result * (ABNORMAL) POCT glucose manually resulted (07/29/2024 9:35 AM EST) Pathologist [facility] Glucose Blood, POC 500(A) 60 - 200 mg/dL Comment:[facility] QC Media Lot # Comment:[id number] Lot# Expiration Date Comment:12/03/2024 Blood Capillary blood specimen / Unknown 07/29/2024 9:35 AM EST Result [facility] POINT OF CARE TEST ENTER/EDIT ORDERABLES Final Result * (ABNORMAL) POCT A1C (07/29/2024 9:34 AM EST) Hemoglobin A1C 15.0(A) 4.0 - 6.0 % Comment:Error #106 (more maeve n 15.0) QC Media Lot # Comment:[id number] Lot# Expiration Date Comment:03/20/2026 Blood 07/29/2024 9:34 AM EST Result [facility] POINT OF CARE TEST ENTER/EDIT ORDERABLES Final Result * (ABNORMAL) Lipid Panel, Standard (11/06/2022 9:59 AM EDT) Cholesterol, Total 108 <200 mg/dL [facility] [employer] [employer] [place] [facility] HDL Cholesterol 36(L) > OR = 40 mg/dL [facility] [employer] [place] [facility] Triglycerides 110 <150 mg/dL [employer] [employer] [place] [facility] LDL Cholesterol 52 mg/dL (calc) [employer] [place] [facility] Comment: Reference range: <100 Desirable range <100 mg/dL for primary prevention; ?? <70 mg/dL for patients with CHD or diabetic patients with > or = 2 CHD risk factors. LDL-C is now calculated using the Pawel calculation, which is a validated novel method providing better accuracy than the Friedewald equation in the estimation of LDL-C. Thong SS et al. JULES. 2013;310(45): 8126-2493 (http://education.Almashopping/faq/YYP419) Chol/HDLC Ratio 3.0 <5.0 (calc) [facility] [employer] [place] [facility] Non-HDL Cholesterol 72 <130 mg/dL (calc) [employer] [place] [facility] Comment: For patients with diabetes plus 1 major ASCVD risk factor, treating to a non-HDL-C goal of <100 mg/dL (LDL-C of <70 mg/dL) is considered a therapeutic option. Blood Venous blood specimen / Unknown 11/06/2022 9:59 AM EDT 11/06/2022 10:00 AM EDT Narrative [facility] - 11/06/2022 11:43 PM EDT FASTING:YES COLLECTION KIT GIVEN TO PATIENT. PATIENT ADVISED TO RETURN. FASTING: YES [facility] LAB BLOOD ORDERABLES Final Re sult [facility] [address], [place] [address] [facility] [employer] [place] [facility] [address] [place] [address] * HEPATITIS C AB W/REFL TO HCV RNA, QN, PCR (07/14/2021 10:33 AM EST) HEPATITIS C ANTIBODY NON-REACT LUZMA NON-REACT LUZMA [facility] INDEX 0.69 <1.00 [facility] Comment: ?? HCV antibody was non-reactive. There is no laboratory ?? evidence of HCV infection. ?? In most cases, no further action is required. However, if recent HCV exposure is suspected, a test for HCV RNA (test code 30923) is suggested. ?? For additional information please refer to http://ExaDigm.RENTISH/faq/YMA61v6 (This link is being provided for informational/ educational purposes only.) ?? 07/14/2021 10:3 3 AM EST [facility] HISTORICAL/NON ORDERABLE LABS Final Result Performing Organization Address [facility] Phone Number [facility] [address] * HIV 1/2 ANTIGEN/ANTIBODY,FOURTH GENERATION W/RFL (07/14/2021 10:33 AM EST) Pathologist [facility] HIV-1/2 ANTIGEN AND ANTIBODIES, 4TH GENERATION W/ REFLEX NON-REACT LUZMA NON-REACT LUZMA [facility] Comment: HIV-1 antigen and HIV-1/HIV-2 antibodies were not detected. There is no laboratory evidence of HIV infection. ?? PLEASE NOTE: This information has been disclosed to you from records whose confidentiality may be protected by state law. ??If your state requires such protection, then the state law prohibits you from making any further disclosure of the information without the specific written consent of the person to whom it pertains, or as otherwise permitted by law. A general authorization for the release of medical or other information is NOT sufficient for this purpose. ? For additional information please refer to http://ExaDigm.RENTISH/faq/EBM815 (This link is being provided for informational/ educational purposes only.) ? The performance of this assay has not been clinically validated in patients less than 2 years old. ?? 07/14/2021 10:3 3 AM EST [facility] LAB BLOOD ORDERABLES Final Re sult Performing Organization Address [facility] de Phone Number [facility] [address] [place] [address], [place] from Last 3 Months or Most Recently Relevant to Health Maintenance Insurance [place] [address] C3 * Guarantor: Mane Keen Account Type Relation to Patient Date of Phone Billing Address Personal/Family Self [address] [id number] Care Teams Mark Up Designer Relationship Specialty Start Date End Date Edwina Braxton FNP [address] [place] [phone] PCP - General Family Medicine 03/01/21
--- OUTSIDE RECORDS SUMMARY | 2024-07-29 13:02 | XMS_ITS | Encounter Summary ---
Author Organization [employer] Address [address] [facility] 7t [place] [address] Care Team Providers Care Safe And Vault Mechanic Name Role Phone Edwina Braxotn [facility] Primary Care Provider Encounter Details Date Type Department Care Team (Latest Contact Info) Description 07/28/2024 Travel Social History Tobacco Use Types Packs/Day Years [...] documented as of this encounter Care Teams Safe And Vault Mechanic Relationship Specialty Start Date End Date Edwina Braxton FNP [address] [place] [phone] PCP - General Family Medicine 03/01/21 documented as of this encounter
--- OUTSIDE RECORDS SUMMARY | 2024-07-29 13:02 | XMS_ITS | Encounter Summary ---
Author Organization [employer] Address [address] [facility] 7t [place] [address] Care Team Providers Care Insole Tack Puller Hand Name Role Phone Edwina Braxton [facility] Primary Care Provider [phone] Encounter Details Date Type Department Care Team (Latest Contact Info) Description 07/29/2024 Travel Social History Tobacco Use Types Packs/Day [...] Time PHQ-9 Depression Total Score: 4 07/29/19 25 10:06 AM EST documented as of this encounter Care Teams Insole Tack Puller Hand Relationship Specialty Start Date End Date Edwina Braxton FNP [address] [place] [address] PCP - General Family Medicine 03/01/21 documented as of this encounter
--- OUTSIDE RECORDS SUMMARY | 2024-07-29 13:02 | XMS_ITS | Encounter Summary ---
Author Organization [employer] Address [address] [place] [address] [place] [address] Care Team Providers Care Weighbridge Operator Name Role Phone [place] [facility] Primary Care Provider [phone] Reason for Visit * Reason Onset Date Comments Med Refill 09/02/2023 Encounter Details Date Type Department Care Team (Late st Contact Info) Description 09/02/2023 Refill [facility] MEDICINE 230 [place], [place] [phone] [facility] 230 [place] [address] Type 2 diabetes mellitus with hyperglycemia, without long-term current use of insulin ([facility]) Social History Tobacco Use Types Packs/Day Years [...] documented as of this encounter Visit Diagnoses Diagnosis Type 2 diabetes mellitus with hyperglycemia, without long-term current use of insulin ([facility]) documented in this encounter Additional Health Concerns Assessment Noted Time PHQ-9 Depression Total Score: 0 08/23/19 24 9:11 AM EDT documented as of this encounter Care Teams Weighbridge Operator Relationship Specialty Start Date End Date Edwina Braxton FNP [address] [place] [id number] PCP - General Family Medicine 03/01/21 documented as of this encounter
--- OUTSIDE RECORDS SUMMARY | 2024-07-29 13:02 | XMS_ITS | Encounter Summary ---
Author Organization [employer] Address [address] [place] [address] 7 [place] [address] Care Team Providers Care Fiberglass Luggage Molder Name Role Phone Edwina Braxton [facility] Primary Care Provider [phone] Reason for Visit * Reason Comments Med Refill Encounter Details Date Type Department Care Team ([facility] st Contact Info) Description 07/10/[address] [facility] MEDICINE 230 [place], [place] [phone] Laura Ferguson MD [address] [place], [place] [phone] Anxiety and depression Social History Tobacco Use Types Packs/Day Years [...] as of this encounter Visit Diagnoses Diagnosis Anxiety and depression documented in this encounter Additional Health Concerns Assessment Noted Time PHQ-9 Depression Total Score: 0 08/23/19 24 9:11 AM EDT documented as of this encounter Care Teams Fiberglass Luggage Molder Relationship Specialty Start Date End Date Edwina Braxton FNP [address] [place] [address] PCP - General Family Medicine 03/01/21 documented as of this encounter
--- OUTSIDE RECORDS SUMMARY | 2024-07-29 13:02 | XMS_ITS | Encounter Summary ---
Author Organization [employer] Address [address] [place] [address] 7 [place] [address] Care Team Providers Care Men'S Golf Coach Name Role Phone [facility] Primary Care Provider [phone] Reason for Visit * Reason Comments Med Change Request Encounter Details Date Type Department Care Team ([facility] Contact Info) Description 07/29/2024 Refill [facility] MED & PEDS [address] [place], [place] [phone] [facility] 230 [place] [address] Type 2 diabetes mellitus with hyperglycemia, without long-term current use of insulin ([facility]) Social History Tobacco Use Types Packs/Day Years [...] hyperglycemia, without long-term current use of insulin ([facility]) documented in this encounter Additional Health Concerns Assessment Noted Time PHQ-9 Depression Total Score: 4 07/29/19 25 10:06 AM EST documented as of this encounter Care Teams Men'S Golf Coach Relationship Specialty Start Date End Date Edwina Braxton FNP [address] [place] [address] PCP - General Family Medicine 03/01/21 documented as of this encounter
--- OUTSIDE RECORDS SUMMARY | 2024-07-29 13:02 | XMS_ITS | Encounter Summary ---
Author Organization [facility] Address [address] [place] [address] Phone Care Team Providers Care Draw Off Worker Name Role Phone [facility] Primary Care Provider [phone] Encounter Details Date Type Department Care Team (Late st Contact Info) Description 12/26/2021 Documentation Only [facility], [address] [place] [address] [facility] [address] [place] [address] Social History Tobacco Use Types Packs/Day Years [...] on filedocumented in this encounter Care Teams Draw Off Worker Relationship Specialty Start Date End Date [facility] [address] [place] [address] PCP - General 07/03/22 documented as of this encounter
--- OUTSIDE RECORDS SUMMARY | 2024-07-29 13:02 | XMS_ITS | Encounter Summary ---
Author Organization [facility] Address [address] [place] [address] Phone Care Team Providers Care Medical Service Representative Name Role Phone [facility] Primary Care Provider [phone] Encounter Details Date Type Department Care Team (Late st Contact Info) Description 12/26/2021 Documentation Only [facility], [address] [place] [address] [facility] 230 [place] [address] Social History Tobacco Use Types Packs/Day Years [...] on filedocumented in this encounter Care Teams Medical Service Representative Relationship Specialty Start Date End Date [facility] [address] [place] [address] PCP - General 07/03/22 documented as of this encounter
--- OUTSIDE RECORDS SUMMARY | 2024-07-29 13:02 | XMS_ITS | Encounter Summary ---
Author Organization [employer] Address [address] [place] [address] 7 [place] [address] Care Team Providers Care Real Estate Assistant Name Role Phone [facility] Primary Care Provider [phone] Reason for Visit * Reason Comments Med Refill Encounter Details Date Type Department Care Team ([facility] st Contact Info) Description 07/10/2024 Refill [facility] MEDICINE 230 [place], [place] [phone] [facility] 230 [place] [address] Type 2 diabetes mellitus with hyperglycemia, without long-term current use of insulin ([facility]) Social History Tobacco [...] hyperglycemia, without long-term current use of insulin ([facility]) documented in this encounter Additional Health Concerns Assessment Noted Time PHQ-9 Depression Total Score: 0 08/23/19 24 9:11 AM EDT documented as of this encounter Care Teams Real Estate Assistant Relationship Specialty Start Date End Date Edwina Braxton FNP [address] [place] [address] PCP - General Family Medicine 03/01/21 documented as of this encounter
--- OUTSIDE RECORDS SUMMARY | 2024-07-29 13:02 | XMS_ITS | Encounter Summary ---
Author Organization [employer] Address [address] [place] [address] 7 [place] [address] Care Team Providers Care Volleyball Referee Name Role Phone [place] [facility] Primary Care Provider [phone] Reason for Visit * Reason Comments Pre-visit Planning SDOH screening negat alejandro and Tobacco screening negative Encounter Details Date Type Department Care Team ([facility] st Contact Info) Description 07/15/2024 Patient Outreach [facility] MEDICINE 230 [place], [place] [phone] [facility] 230 [place] [address] Pre-visit Planning (SDOH screening negative and Tobacco screening negative) Social History Tobacco Use Types Packs/Day Years [...] Recorded Patient Health Questionnaire-2 Score 0 08/23/2023 Internet Access Answer Date Recorded Internet Access Q1 Yes 07/15/2024 Internet Access Q2 Not on file 07/15/2024 Sex and Gender Information Value Date Recorded Sex Assigned at Male 04/02/2022 10:22 AM EDT Legal Sex Male 10:22 AM EDT Gender Identity Male 04/02/2022 10:22 AM EDT Sexual Orientation Lesbian or [place] 04/02/2022 10 :22 AM EDT documented as of this encounter Progress Notes * Scott Alcocer - 07/15/2024 11:33 AM EST CC [facility] placed successful outbound call to patient for pre-visit planning. Patient name and confirmed. Patient confirms appt date and time, and has transportation arrangements. Biggest concern for appointment at this time is no concerns. Patient advised to bring to appointment a photo id and insurance card. Appropriate screenings completed in anticipation of appointment. . Tobacco screening positive. Will counseling. documented in this encounter Plan of Treatment Not on file documented as of this encounter Visit Diagnoses Not on filedocumented in this encounter Additional Health Concerns Assessment Noted Time PHQ-9 Depression Total Score: 0 08/23/19 24 9:11 AM EDT documented as of this encounter Care Teams Volleyball Referee Relationship Specialty Start Date End Date Edwina Braxton FNP [address] [place] [phone] PCP - General Family Medicine 03/01/21 documented as of this encounter
--- OUTSIDE RECORDS SUMMARY | 2024-07-29 13:02 | XMS_ITS | Encounter Summary ---
Author Organization [employer] Address [address] [place] [address] 7 [place] [address] Care Team Providers Care Balance Engineer Name Role Phone [place] [facility] Primary Care Provider [phone] Reason for Visit * Reason Onset Date Comments Med Change Request Appointment Request 06/13/2023 Encounter Details Date Type Department Care Team ([facility] st Contact Info) Description 06/13/2023 Refill [facility] 230 [place], [place] [phone] [facility] 230 [place], [place] [phone] History of stroke Social History Tobacco Use Types Packs/Day Years Used Date Smoking Tobacco: Every Day Cigarettes Smokeless Tobacco: Never Alcohol Use Standard Drinks/Week Comments Yes 0 (1 standard drink = 0.6 oz pur e alcohol) socially Depression Answer Date Recorded Patient Health Questionnaire-9 Score 0 05/20/2023 Patient Health Questionnaire-9 Score 0 05/20/2023 Last PHQ-9: Questionnaire Data Not on file 1 07/21/2022 Housing Stability Answer Date Recorded What is [...] Date Recorded Patient Health Questionnaire-2 Score 0 05/20/2023 Sex and Gender Information Value Date Recorded Sex Assigned at Male 04/02/2022 10:22 AM EDT Legal Sex Male 10:22 AM EDT Gender Identity Male 04/02/2022 10:22 AM EDT Sexual Orientation Lesbian or [place] 04/02/2022 10 :22 AM EDT documented as of this encounter Miscellaneous Notes * Telephone Encounter - Melanie Peterson - 06/14/2023 12:53 PM EST Called pt X2 to schedule DM appt. No answer LVM\ sent unable to contact letter documented in this encounter Plan of Treatment Not on file documented as of this encounter Visit Diagnoses Diagnosis History of stroke Transient ischemic attack (TIA), and cerebral infarction without residual deficits documented in this encounter Additional Health Concerns Assessment Noted Time PHQ-9 Depression Total Score: 0 05/20/20 23 10:46 AM EST documented as of this encounter Care Teams Balance Engineer Relationship Specialty Start Date End Date Edwina Braxton FNP [address] [place] [address] PCP - General Family Medicine 03/01/21 documented as of this encounter
--- OUTSIDE RECORDS SUMMARY | 2024-07-29 13:02 | XMS_ITS | Encounter Summary ---
Author Organization [employer] Address [address] [place] [address] 7 [place] [address] Care Team Providers Care Courtesy Van Driver Name Role Phone [facility] Primary Care Provider [phone] Reason for Visit * Reason Onset Date Comments ER Follow-up 03/27/2023 Encounter Details Date Type Department Care Team ([facility] st Contact Info) Description 03/27/2023 Telephone [facility] MEDICINE 230 [place], [place] [phone] [facility] 230 [place] [address] ER Follow-up Social History Tobacco Use Types Packs/Day Years Used Date Smoking Tobacco: Every Day Cigarettes Smokeless Tobacco: Never Alcohol Use Standard Drinks/Week Comments Yes 0 (1 standard drink = 0.6 oz pur e alcohol) socially Depression Answer Date Recorded Patient Health Questionnaire-9 Score 0 03/18/2023 Patient Health Questionnaire-9 Score 0 03/18/2023 Last PHQ-9: Questionnaire Data Not on file 1 Housing Stability Answer Date Recorded What is [...] to shut off services in your home? I am not sure 03/18/2023 Depression Answer Date Recorded Patient Health Questionnaire-2 Score 0 03/18/2023 Sex and Gender Information Value Date Recorded Sex Assigned at Male 04/02/2022 10:22 AM EDT Legal Sex Male 10:22 AM EDT Gender Identity Male 04/02/2022 10:22 AM EDT Sexual Orientation Lesbian or [place] 04/02/2022 10 :22 AM EDT documented as of this encounter Miscellaneous Notes * Telephone Encounter - Mame Phillips - 03/27/2023 9:29 AM EDT Tc from pt calling to report an ED visit. Pt was admitted at [facility] on 03/21 for a stroke and discharged on 03/23. Pt does not know exact date, states it was a blur. Was advised will forward to team nurses for f/u. Please contact pt at [phone] documented in this encounter Plan of Treatment Not on file documented as of this encounter Visit Diagnoses Not on filedocumented in this encounter Additional Health Concerns Assessment Noted Time PHQ-9 Depression Total Score: 0 03/18/20 23 10:55 AM EDT documented as of this encounter Care Teams Courtesy Van Driver Relationship Specialty Start Date End Date Edwina Braxton FNP [address] [place] [address] PCP - General Family Medicine 03/01/21 documented as of this encounter
--- OUTSIDE RECORDS SUMMARY | 2024-07-29 13:02 | XMS_ITS | Encounter Summary ---
Author Organization [employer] Address [address] [place] [address] 7 [place] [address] Care Team Providers Care Impregnator Operator Name Role Phone Edwina Braxton Primary Care Provider [phone] Encounter Details Date Type Department Care Team (Late st Contact Info) Description 12/05/2022 Abstract [facility] MEDICINE 230 [place], [place] [phone] Edwina Braxton FNP 230 [place] [address] Social History Tobacco Use Types Packs/Day Years [...] documented as of this encounter Care Teams Impregnator Operator Relationship Specialty Start Date End Date Edwina Braxton FNP 230 [place] [address] PCP - General Family Medicine 03/01/21 documented as of this encounter
--- OUTSIDE RECORDS SUMMARY | 2024-07-29 13:02 | XMS_ITS | Encounter Summary ---
Author Organization [employer] Address [address] [place] [address] 7 [place] [address] Care Team Providers Care Manager Eligibility Name Role Phone Edwina Braxton [facility] Primary Care Provider [phone] Reason for Visit * Reason Comments Med Refill Encounter Details Date Type Department Care Team ([facility] Contact Info) Description 04/24/2023 Refill [facility] MED & PEDS [address] [place] [address] Ines Hui MD 230 [place] [address] Type 2 diabetes mellitus with hyperglycemia, without long-term current use of insulin ([facility]) Social History Tobacco Use Types Packs/Day Years [...] hyperglycemia, without long-term current use of insulin ([facility]) documented in this encounter Additional Health Concerns Assessment Noted Time PHQ-9 Depression Total Score: 0 03/18/20 23 10:55 AM EDT documented as of this encounter Care Teams Manager Eligibility Relationship Specialty Start Date End Date Edwina Braxton FNP [address] [place] [phone] PCP - General Family Medicine 03/01/21 documented as of this encounter
--- OUTSIDE RECORDS SUMMARY | 2024-07-29 13:02 | XMS_ITS | Clinical Summary ---
Author Organization [facility] Address [address] [address] Phone Care Team Providers Care Pharmacy Retail Support Specialist Name Role Phone Irais Edwina Primary Care Provider [phone] Allergies Active Allergy Reactions Criticality Noted Date Comments Penicillin G 02/12/2022 Penicillin V 12/09/2023 Other reaction(s): questionable Potassium 02/12/2022 Medications * This document contains information received from the source organization and may not represent a complete record from that organization. amLODIPine (NORVASC) 10 MG tablet Take 10 mg by mouth 2 Active apixaban (ELIQUIS) 5 MG tablet Take 5 mg by mouth 1 Active atorvastatin (LIPITOR) 80 MG tablet Take 80 mg by mouth 1 Active pantoprazole (PROTONIX) 40 MG EC tablet Take 40 mg by mouth 1 Active acetaminophen (TYLENOL) 500 MG tablet Take by mouth every 6 (six) hours if needed for mild pain Active lidocaine (LIDODERM) 5 % patch Apply topically 1 (one) time each day Active nicotine (NICODERM CQ) 7 MG/24HR Place 1 patch on the skin 1 (one) time each day at the same time Active nicotine polacrilex (NICORETTE) 4 MG gum Chew 4 mg if needed for smoking cessation Active albuterol HFA (Proventil HFA) 108 (90 Base) MCG/ACT inhaler Inhale 2 puffs every 6 (six) hours if needed for wheezing Active LORazepam (ATIVAN) 0.5 MG tablet Take 0.5 mg by mouth every 6 (six) hours if needed for anxiety Active cholecalcifero l (VITAMIN D-3) 50 MCG (2000 UT) tablet Take 2,000 Units by mouth 1 (one) time each day Active olmesartan (BENICAR) 20 MG tablet Take 20 mg by mouth 1 (one) time each day Active DULoxetine (CYMBALTA) [address] capsule Take 30 mg by mouth 1 (one) time each day Do not crush or chew. Active sertraline (ZOLOFT) 25 MG tablet Take 25 mg by mouth 1 (one) time each day Active aspirin (ST BERTO) 81 MG EC tablet Take 81 mg by mouth 1 (one) time each day Active Dulaglutide 4.5 MG/0.5ML solution pen-injector Inject 4.5 mL under the skin every 7 (seven) days Active escitalopram (LEXAPRO) 5 MG tablet Take 5 mg by mouth 1 (one) time each day Active metFORMIN (FORTAMET) 500 MG 24 hr tablet Take 500 mg by mouth 1 (one) time each day with dinner Do not crush, chew, or split. Active ibuprofen (ADVIL,MOTRIN) 600 MG tablet TAKE 1 TABLET BY MOUTH EVERY 8 HOURS,X14 DAYS 4 Active oxyCODONE (ROXICODONE) 5 MG immediate release tablet TAKE 1 TABLET BY MOUTH 2 TIMES A DAY,X10 DAYS NEEDED FOR PAIN 4 Active Mounjaro 2.5 MG/0.5ML solution pen-injector INJECT ONE PEN (=2.5MG) SUBCUTANEOUSLY ONCE A WEEK DIRECTED Active Lantus SoloStar 100 UNIT/ML injection INJECT 15 UNITS SUBCUTANEOUSLY AT BEDTIME 4 Active Blood Glucose Monitoring Suppl (GNP Easy Touch Glucose Meter) device Use as directed to check blood sugar four times daily 3 Active Active Problems Problem Noted Date Diagnosed Date Diabetes mellitus 08/19/2023 Acute nontraumatic kidney injury 08/19/2023 Hypertension 02/12/2022 Hyperlipidemia 02/12/2022 Paroxysmal atrial fibrillation 02/12/2022 Social History Tobacco Use Types Packs/Day Years Used Date Smoking Tobacco: Every Day Cigarettes 0.5 22 Smokeless Tobacco: Current Tobacco Cessation:Ready to Q uit: Not Asked; Counseling Given: Not Answered Alcohol Use Standard Drinks/Week Comments Yes 4 (1 standard drink = 0.6 oz pur e alcohol) Sex and Gender Information Value Date Recorded Sex Assigned at Not on file Legal Sex Male 10:40 AM EDT Gender Identity Not on file Sexual Orientation Not on file Last Filed Vital Signs Vital Sign Reading Time Taken Comments Blood Pressure 108/64 12/09/2023 4:18 PM EDT Pulse 105 12/09/2023 4:18 PM EDT Temperature - - Respiratory Rate - - Oxygen Saturation - - Inhaled Oxygen Concentration - - Weight 160 kg (352 lb) 12/09/2023 4:18 PM EDT Height - - Body Mass Index - - Plan of Treatment Health Maintenance Due Date Last Done Comments Hepatitis B Vaccine (1 of 3 - 19+ 3-dose series) 12/02/1995 08/23/2021, 07/26/2021, 01/27/2003, Additional history exists Diabetes: Ophthalmology Exam 08/19/2023 Diabetes: Pedal Pulse Checked 08/19/2023 Diabetes: Sensory Foot Exam 08/19/2023 Diabetes: Visual Foot Exam 08/19/2023 Diabetes: Hemoglobin A1C 11/23/2023 08/23/2023 Influenza Vaccine (#1) 2024 Pneumococcal Vaccine: Pediat rics (0 to 5 Years) and At-Risk Patients (6 to 64 Years) Completed 11/06/2022 Insurance [facility] [place]ID [place] Care Teams Pharmacy Retail Support Specialist Relationship Specialty Start Date End Date [facility] [address] [place] [address] PCP - General 07/03/22
[2024-07-29 14:25] LABS: MANUAL DIFF FLAG NO
[2024-07-29 14:29] LABS: Basophils Absolute Auto 0.1 X10*3/uL (0.0-0.2); Basophils Percent Auto 0.7 % (0-2); Eosinophils Absolute Auto 0.2 X10*3/uL (0.0-0.4); Eosinophils Percent Auto 1.4 % (0-4); Hematocrit 47.2 % (42.0-52.0); Hemoglobin 15.6 g/dl (14.0-18.0); Imm Gran Abs Auto 0.06 X10*3/uL (0.00-0.03); Imm Gran Pct Auto 0.4 % (0.0-0.4); Lymphocytes Absolute Auto 1.9 X10*3/uL (1.2-4.9); Lymphocytes Percent Auto 13.7 % (20-40); Mean Corpuscular HGB Conc 33.1 g/dl (31.0-36.0); Mean Corpuscular Hemoglobin 26.9 pg (27.0-33.0); Mean Corpuscular Volume 81.5 fL (80.0-98.0); Mean Platelet Volume 11.5 fL (9.4-12.4); Monocytes Absolute Auto 0.9 X10*3/uL (0.1-1.2); Monocytes Percent Auto 6.6 % (2-11); Neutrophils Absolute Auto 10.4 x10*3/uL (2.0-8.3); Neutrophils Percent Auto 77.2 % (45-73); Platelet Count 431 X10*3/uL (160-400); Red Blood Count 5.79 X10*6/uL (4.60-5.80); Red Cell Distribution Width 16.9 % (11.0-16.0); White Blood Count 13.5 X10*3/uL (4.8-10.8)
[2024-07-29 15:05] LABS: Alanine Aminotransferase 42 U/L (0-40); Albumin Level 3.9 g/dL (3.5-5.0); Alkaline Phosphatase 106 U/L (39-117); Anion Gap 16 (12-20); Aspartate Amino Transferase 31 U/L (5-37); Bilirubin Total 0.6 mg/dL (0.0-1.0); Blood Urea Nitrogen 12 mg/dL (9-16); C Reactive Protein 0.56 mg/dL (< or = 0.50); Calcium 9.1 mg/dL (8.4-10.2); Carbon Dioxide 21 mmol/L (22-29); Chloride 97 mmol/L (96-108); Estimated Glomerular Filt Rate 52; Glucose Random 556 mg/dL (60-115); Potassium 4.2 mmol/L (3.3-5.1); Sodium 130 mmol/L (135-145); Total Protein 7.8 g/dL (6.5-8.0)
[2024-07-29 15:08] LABS: Erythrocyte Sedimentation Rate 11 MM/HR (0-15)
== END 2024-07-29 10:36 | disposition home or self-care (01) ==
LOC: HO.CHCLDS 10:35
PROVIDERS: Visit Provider Registered Nurse
DX: E11.65 Type 2 diabetes mellitus with hyperglycemia (principal); Z79.4 Long term (current) use of insulin
CPT/HCPCS: 36415; 80053; 85025; 85652; 86140

== ENCOUNTER 2024-07-30 13:32 | Outpatient (REF) | payer MEDICAID, SELFPAY ==
--- OUTSIDE RECORDS SUMMARY | 2024-07-30 16:16 | XMS_ITS | Encounter Summary ---
Author Organization [employer] Address [address] [place] [address] [address] [place] [address] Care Team Providers Care Sales Team Leader Name Role Phone Edwina Braxton Primary Care Provider [phone] Encounter Details Date Type Department Care Team (Late st Contact Info) Description 12/05/2022 Abstract [facility] [address] [place], [place] [phone] Edwina Braxton FNP [address] [place] [address] Social History Tobacco Use Types Packs/Day Years [...] documented as of this encounter Care Teams Sales Team Leader Relationship Specialty Start Date End Date Edwina Braxton FNP [address] [place] [address] PCP - General Family Medicine 03/01/21 documented as of this encounter
--- OUTSIDE RECORDS SUMMARY | 2024-07-30 16:16 | XMS_ITS | Encounter Summary ---
Author Organization [facility] Address [address] [place] [address] Phone Care Team Providers Care Electronic Bench Technician Name Role Phone [facility] Primary Care Provider [phone] Encounter Details Date Type Department Care Team (Late st Contact Info) Description 12/26/2021 Documentation Only [facility], [address] [place] [address] [facility] [address] [place] [address] Social History Tobacco Use Types Packs/Day Years [...] on filedocumented in this encounter Care Teams Electronic Bench Technician Relationship Specialty Start Date End Date [facility] [address] [place] [address] PCP - General 07/03/22 documented as of this encounter
--- OUTSIDE RECORDS SUMMARY | 2024-07-30 16:16 | XMS_ITS | Encounter Summary ---
Author Organization [employer] Address [address] [place] [id number] Care Team Providers Care Cold Food Packer Name Role Phone Edwina Braxton Primary Care Provider [phone] Reason for Referral * Consultation (Urgent) - Authorized Specialty Diagnoses / Procedures Referred By Tayler contreras Referred To Contact Pharmacy Diagnoses Type 2 diabetes mellitus with hyperglycemia, with long-term current use of insulin ([facility]) Edwina Braxton FNP [address] [place] [address] Phone: tel: fax: Referral ID Status Reason Start Date Expiration Date Visits Requested Visits Authorized [id number] Authorized Consult and Treat 07/30/2024 07/30/2025 6 6 * Consultation (STAT) - Authorized Specialty Diagnoses / Procedures Referred By Tayler contreras Referred To Contact Optometry Diagnoses Blurred vision, bilateral Edwina Braxton FNP [address] [place] [address] Phone: tel: fax: [facility] [address] [place] [address] Phone: tel: fax: Referral ID Status Reason Start Date Expiration Date Visits Requested Visits Authorized [id number] Authorized Consult and Treat 07/30/2024 07/30/2025 1 1 Reason for Visit * Reason Comments Annual Exam Encounter Details Date Type Department Care Team (Late st Contact Info) Description 07/29/2024 9:30 AM EST Office Visit [facility] [address] [place] [address] [facility], [facility] [address] [place] [address] Type 2 diabetes mellitus with hyperglycemia, with long-term current use of insulin ([facility]) (Primary Dx); Blurred vision, bilateral; Hematuria, unspecified type; Hypertension, unspecified type Social History Tobacco Use Types Packs/Day Years [...] Sign Reading Time Taken Comments Blood Pressure 100/62 07/29/2024 11:07 AM EST Pulse 108 07/29/2024 9:32 AM [...] 9:32 AM EST documented in this encounter Progress Notes * [facility], [facility] - 07/29/2024 9:30 AM EST SUBJECTIVE: Mane Keen is a 48 y.o. year old male with T2DM, HLD, HTN, afib, hx of cardioembolic medullary CVA, CKD, and TUD who presents for chronic disease management. Denies recent illness, injury, or hospitalization. 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 Underwent multiple debridements(last on 11/20) and surgical reconstruction. followed up outpatient with Dr. Grady [facility] plastic surgery however I do not have office notes at this time. Social History Social History Narrative Current living environment: Lives with sister. No children. 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 Tobacco Use: current 1/2 PPD Alcohol Use: 4-5 beers/week Marijuana Use: None Other drug use: None [employer] Sexually Active: Yes Partners are: Male Relationship: Yes Condom Use: Always Patient Active Problem List Diagnosis Cerebrovascular accident ([facility]) Hyperlipidemia Hypertension Severe obesity ([facility]) Paroxysmal atrial fibrillation ([facility]) Smoking 1/2 pack a day or less Healthcare maintenance Neuralgia Anxiety and depression Type 2 diabetes mellitus with hyperglycemia, without long-term current use of insulin ([facility]) Tobacco use Cerebral atherosclerosis No past surgical history on file. No family history on file. Review of Systems Constitutional: Positive for fatigue. Negative for activity change, diaphoresis, fever and unexpected weight change. Eyes: Negative for visual disturbance. Respiratory: Negative for apnea, cough, chest tightness and shortness of breath. Cardiovascular: Negative for chest pain, palpitations and leg swelling. Gastrointestinal: Negative for abdominal pain and nausea. Endocrine: Positive for polydipsia and polyuria. Genitourinary: Negative for dysuria, scrotal swelling and urgency. Neurological: Negative for dizziness, syncope, light-headedness and headaches. OBJECTIVE: Vitals: 07/29/24 0932 BP: 94/57 Pulse: 108 Resp: 20 Temp: 98.5 ??F (36.9 ??C) SpO2: 96% Physical Exam Constitutional: Appearance: Normal appearance. He is ill-appearing. HENT: Head: Normocephalic. Right Ear: External ear normal. Left Ear: External ear normal. Nose: Nose normal. Eyes: Conjunctiva/sclera: Conjunctivae normal. Cardiovascular: Rate and Rhythm: Normal rate and regular rhythm. Heart sounds: Normal heart sounds. Pulmonary: Effort: Pulmonary effort is normal. Breath sounds: Normal breath sounds. Musculoskeletal: Right lower leg: No edema. Left lower leg: No edema. Skin: General: Skin is warm and dry. Capillary Refill: Capillary refill takes less than 2 seconds. Neurological: General: No focal deficit present. Mental Status: He is alert and oriented to person, place, and time. Psychiatric: Mood and Affect: Mood normal. Behavior: Behavior normal. ASSESSMENT/PLAN In office [id number] glucose over 500, A1c 15, UA with positive ketones, blood, leukocytes. Patient was advised to proceed to emergency department for blood sugar stabilization and concern for developing UTI. Patient declines. I reviewed risks of untreated hyperglycemia including organ failure, sepsis, and . Patient verbalized understanding and states that if his blood sugars do not improve at home he will go to emergency department later. He signed an AGAINST MEDICAL ADVICE form. T2DM -10 units lispro administered in office. - Increase Mounjaro to 5 mg - Increase Lantus to 24 units (patient was previously prescribed Toujeo 40 units, it is unclear howthis prescription was changed. Patient tells me that he is currently administering Lantus 20 units nightly) - Obtain blood work today - Stat referral to CD for CGM set up -Stat referral to optometry patient reports worsening blurred vision Hematuria -Given high risk of infection; abnormal UA we will treat empirically for cystitis with Macrobid x 7days -No CVA tenderness - Urine culture send out - Patient agrees to proceed to emergency department if develops fever, dysuria, back pain. HTN - Blood pressure low in office however patient BP readings have historically been very difficult toaccurately assess due to almost inaudible korotkoff sounds. Patient denies dizziness, weakness. -History of labile hypertension now followed by nephrology - Previously stable on amlodipine 10mg, olmesartan 5mg - STOP olmesartan 5mg - Continue to monitor home blood pressure-- hold amlodipine in home readings <100/60 ADDENDUM: Blood work shows elevated white cell count 13.5. I called patient to again advise stabilization and emergency department. No answer. Left voicemail advising emergency department evaluation. Diagnosis Plan 1. Type 2 diabetes mellitus with hyperglycemia, with long-term current use of insulin ([facility]) POCT A1C POCT glucose manually resulted POCT urinalysis dipstick manually resulted Insulin Lispro solution 10 Units Tirzepatide (Mounjaro) 5 MG/0.5ML solution auto-injector Comprehensive Metabolic Panel CBC auto differential Sed Rate by Modified Westergren C-reactive Protein Comprehensive Metabolic Panel CBC auto differential Sed Rate by Modified Westergren C-reactive Protein insulin glargine (Lantus SoloStar) 100 UNIT/ML pen nitrofurantoin, macrocrystal-monohydrate, (Macrobid) 100 MG capsule Culture, Urine, Routine Culture, Urine, Routine Referral to Pharmacy CD[facility] Continuous Glucose Sensor (FreeStyle Shivam 2 Sensor) [facility] [place]ucose Audit Lead (FreeStyle Shivam 2 [place]) device 2. Blurred vision, bilateral Referral to [facility] 3. Hematuria, unspecified type 4. Hypertension, unspecified type Follow Up: 1 week RN visit, CGM and review glucose log; 1 month PCP Current Outpatient Medications on File Prior to Visit Medication Sig Dispense Refill acetaminophen (Tylenol) 500 MG tablet Take 1 tablet by mouth every 12 (twelve) hours if needed. Alcohol Swabs (Alcohol Prep) 70 % pads USE TO CHECK BLOOD SUGAR FOUR TIMES A DAY 100 each 11 amLODIPine (Norvasc) 10 MG tablet TAKE 1 TABLET BY MOUTH EVERY MORNING 90 tablet 3 Aspirin Low Dose 81 MG EC tablet TAKE 1 TABLET (81 MG) BY MOUTH IN THE MORNING 90 tablet 3 atorvastatin (Lipitor) 80 MG tablet TAKE 1 TABLET (80 MG) BY MOUTH IN THE MORNING 90 tablet 1 Blood Glucose Monitoring Suppl (GNP Easy Touch Glucose Meter) device Use as directed to check bloodsugar four times daily 1 each 0 Continuous Glucose Audit Lead (FreeStyle Shivam 2 [place]) device Scan sensor every 8 hours 1 each 0 Continuous Glucose Sensor (FreeStyle Shivam 2 Sensor) misc Apply 1 sensor every 14 days 2 each 2 Eliquis 5 MG tablet TAKE 1 TABLET BY MOUTH TWICE A DAY IN THE MORNING AND IN THE EVENING 180 tablet1 Emollient (Aquaphor Advanced Therapy) 41 % ointment Apply 2 Applications topically 2 times daily. 50 g 3 escitalopram (Lexapro) 20 MG tablet Take 1 tablet (20 mg) by mouth Once per day. OK to increase to 10mg if tolerating well 90 tablet 1 FreeStyle lancets USE DIRECTED TO CHECK BLOOD SUGAR FOUR TIMES DAILY 100 each 5 glucose blood (FREESTYLE LITE) test strip USE DIRECTED TO CHECK BLOOD SUGAR FOUR TIMES DAILY 100strip 11 insulin glargine (Toujeo Max SoloStar) 300 UNIT/ML injection Inject 40 Units under the skin at bedtime. May self titrate 2 units every 3 days up to max dose of 50 units 1.5 mL 12 insulin pen needle (B-D UF III MINI PEN NEEDLES) 31G x 5 mm [facility] USE INSTRUCTED 100 each 11 lidocaine (Lidoderm) 5 % patch APPLY 1 PATCH IN THE MORNING REMOVE AND DISARD PATCH WITHIN 12 HOURSOR DIRECTED 90 patch 3 LORazepam (Ativan) 0.5 MG tablet TAKE 1 TABLET (0.5 MG) BY MOUTH EVERY 6 (SIX) HOURS IF NEEDED FOR ANXIETY. 10 tablet 0 metFORMIN XR (Glucophage-XR) 500 MG 24 hr tablet TAKE 1 TABLET DAILY BY MOUTH. IF TOLERATING WELL MAY INCREASE TO 1 TABLET TWICE DAILY 180 tablet 1 nicotine (Nicoderm, Step 1) 21 MG/24HR patch PLACE 1 PATCH ON THE SKIN 1 TIME EACH DAY AT THE SAME TIME. 28 patch 3 nicotine polacrilex (Commit) 4 MG lozenge Dissolve 1 lozenge (4 mg) in the mouth every 2 (two) hours if needed for smoking cessation. 100 lozenge 1 olmesartan (BENIcar) 5 MG tablet TAKE 2 TABLETS BY MOUTH EVERY MORNING 180 tablet 1 pantoprazole (ProtoNix) 40 MG EC tablet TAKE 1 TABLET (40 MG) BY MOUTH BEFORE BREAKFAST 90 tablet 1 Tirzepatide (Mounjaro) 2.5 MG/0.5ML solution auto-injector INJECT THE CONTENTS OF 1 PEN SUBCUTANEOUSLY ONCE WEEKLY 2 mL 2 Tirzepatide (Mounjaro) 2.5 MG/0.5ML solution pen-injector Inject 2.5 mg under the skin 1 (one) timeper week. 2 mL 2 No current facility-administered medications on file prior to visit. Danish Translation: Not applicable documented in this encounter Plan of Treatment Scheduled Orders Name Type Priority Associated Diagnoses Orde r Schedule Culture, Urine, Routine Microbiology Routine Type 2 diabetes mellitus with hyperglycemia, with long-term current use of insulin ([facility]) Expected: 07/29/2024 (Approximate), Expires: 07/29/2025 Scheduled Referrals Name Type Priority Associated Diagnoses Orde r Schedule Referral to [facility] Outpatient Referral STAT Blurred vision, bilateral Expected: 07/30/2024 (Approximate), Expires: 07/30/2025 Referral to Pharmacy [facility] Outpatient Referral Urgent Type 2 diabetes mellitus with hyperglycemia, with long-term current use of insulin ([facility]) Ordered: 07/30/2024 documented as of this encounter Procedures Procedure Name Priority Date/Time Associated Diagnosis Comments POCT URINALYSIS DIPSTICK Routine 07/29/2024 11:06 AM EST Type 2 diabetes mellitus with hyperglycemia, with long-term current use of insulin ([facility]) CBC WITH AUTO DIFFERENTIAL Routine 07/29/2024 10:36 AM EST Type 2 diabetes mellitus with hyperglycemia, with long-term current use of insulin ([facility]) SED RATE BY MODIFIED WESTERGREN Routine 07/29/2024 10:36 AM EST Type 2 diabetes mellitus with hyperglycemia, with long-term current use of insulin ([facility]) C-REACTIVE PROTEIN Routine 07/29/2024 10 :36 AM EST Type 2 diabetes mellitus with hyperglycemia, with long-term current use of insulin ([facility]) COMPREHENSIVE METABOLIC PANEL Routine 07/29/2024 10:36 AM EST Type 2 diabetes mellitus with hyperglycemia, with long-term current use of insulin ([facility]) POCT GLUCOSE Routine 07/29/2024 9:35 AM EST Type 2 diabetes mellitus with hyperglycemia, with long-term current use of insulin ([facility]) POCT GLYCATED HEMOGLOBIN, TOTAL Routine 07/29/2024 9:34 AM EST Type 2 diabetes mellitus with hyperglycemia, with long-term current use of insulin ([facility]) documented in this encounter Results * (ABNORMAL) [...] Appearance, UA cloudy QC Media Lot # Comment:[id number] Lot# Expiration Date Comment:03/02/2025 Urine 07/29/2024 11:0 6 AM EST [facility] POINT OF CARE TEST ENTER/EDIT ORDERABLES Final Result * (ABNORMAL) C-reactive Protein (07/29/2024 10:36 AM EST) C Reactive Protein 0.56(H) < or = 0.50 mg/dL [facility] Blood Venous blood specimen / Unknown 07/29/2024 10:36 AM EST 07/29/2024 2:18 PM EST [facility] LAB BLOOD ORDERABLES Final Re sult [facility] [address] [place] [address] [phone] * Sed Rate by Modified Lyndseyren (07/29/2024 10:36 AM EST) Pathologist [facility] Erythrocyte Sedimentation Rate 11 0 - 15 MM/HR [facility] Comment:Patients with polycy themia and many hemoglobin abnormalitiesmay have depressed sed rates whereas patients with anemiamay have elevated sed rates. Blood Venous blood specimen / Unknown 07/29/2024 10:36 AM EST 07/29/2024 2:18 PM EST [facility] LAB BLOOD ORDERABLES Final Re sult Performing Organization Address City/[facility]/ZIP Co de Phone Number [facility] [address] [place] [address] [phone] * (ABNORMAL) CBC auto differential (07/29/2024 10:36 AM EST) Pathologist [facility] White Blood Count 13.5(H) 4.8 - 10.8 X10*3/uL [facility] Red Blood Count 5.79 4.60 - 5.80 X10*6/uL [facility] Hemoglobin 15.6 14.0 - 18.0 g/dl [facility] Hematocrit 47.2 42.0 - 52.0 % [facility] Mean Corpuscular Volume 81.5 80.0 - 98.0 fL [facility] Mean Corpuscular Hemoglobin 26.9(L) 27.0 - 33.0 pg [facility] Mean Corpuscular HGB Conc 33.1 31.0 - 36.0 g/dl [facility] Red Cell Distribution Width 16.9(H) 11.0 - 16.0 % [facility] Platelet Count 431(H) 160 - 400 X10*3/uL [facility] Mean Platelet Volume 11.5 9.4 - 12.4 fL [facility] Neutrophils Percent Auto 77.2(H) 45 - 73 % [facility] Imm Gran Pct Auto 0.4 0.0 - 0.4 % [facility] Lymphocytes Percent Auto 13.7(L) 20 - 40 % [facility] Monocytes Percent Auto 6.6 2 - 11 % [facility] Eosinophils Percent Auto 1.4 0 - 4 % [facility] Basophils Percent Auto 0.7 0 - 2 % [facility] NRBC Pct Auto 0.0 0.0 - 0.2 /100WBC [facility] Neutrophils Absolute Auto 10.4(H) 2.0 - 8.3 x10*3/uL [facility] Imm Gran Abs Auto 0.06(H) 0.00 - 0.03 X10*3/uL [facility] Lymphocytes Absolute Auto 1.9 1.2 - 4.9 X10*3/uL [facility] Monocytes Absolute Auto 0.9 0.1 - 1.2 X10*3/uL [facility] Eosinophils Absolute Auto 0.2 0.0 - 0.4 X10*3/uL [facility] Basophils Absolute Auto 0.1 0.0 - 0.2 X10*3/uL [facility] NRBC Abs Auto 0.000 0.0 - 0.012 X10*3/uL [facility] Blood Venous blood specimen / Unknown 07/29/2024 10:36 AM EST 07/29/2024 2:18 PM EST [facility] [employer] LAB BLOOD ORDERABLES Final Re sult [facility] [address] [place] [address] [phone] * (ABNORMAL) Comprehensive Metabolic Panel (07/29/2024 10:36 AM EST) Sodium 130(L) 135 - 145 mmol/L [facility] Potassium 4.2 3.3 - 5.1 mmol/L [facility] Chloride 97 96 - 108 mmol/L [facility] Carbon Dioxide 21(L) 22 - 29 mmol/L [facility] Anion Gap 16 12 - 20 [facility] Urea Nitrogen (BUN) 12 9 - 16 mg/dL [facility] Creatinine, Serum 1.45(H) 0.5 - 1.4 mg/dL [facility] Estimated Glomerular Filt Rate 52 [facility] Comment:Chronic Kidney Disea se: Estimated GFR < 60 mL/min/[id number] Kidney Disease: Estimated GFR < 15 mL/min/1.73m2 Glucose 556(HH) 60 - 115 mg/dL [facility] Comment:Critical value for G LUCOSE Results called to and read ervin: LILLIAN Selby Person calling: EDUARD Date: 07/29/24Time:1504 Calcium 9.1 8.4 - 10.2 mg/dL [facility] Bilirubin, Total 0.6 0.0 - 1.0 mg/dL [facility] Aspartate Amino Transferase 31 5 - 37 U/L [facility] Alanine Aminotransferase 42(H) 0 - 40 U/L [facility] Total Protein 7.8 6.5 - 8.0 g/dL [facility] Albumin Level 3.9 3.5 - 5.0 g/dL [facility] Alkaline Phosphatase 106 39 - 117 U/L [facility] Blood Venous blood specimen / Unknown 07/29/2024 10:36 AM EST 07/29/2024 2:18 PM EST [facility] LAB BLOOD ORDERABLES Final Re sult [facility] [address] [place] [address] [phone] * (ABNORMAL) POCT glucose manually resulted (07/29/2024 9:35 AM EST) Glucose Blood, POC 500(A) 60 - 200 mg/dL Comment:[facility] QC Media Lot # Comment:[id number] Lot# Expiration Date Comment:12/03/2024 Blood Capillary blood specimen / Unknown 07/29/2024 9:35 AM EST [facility] POINT OF CARE TEST ENTER/EDIT ORDERABLES Final Result * (ABNORMAL) POCT A1C (07/29/2024 9:34 AM EST) Hemoglobin A1C 15.0(A) 4.0 - 6.0 % Comment:Error #106 (more maeve n 15.0) QC Media Lot # Comment:[id number] Lot# Expiration Date Comment:03/20/2026 Blood 07/29/2024 9:34 AM EST Result [facility] POINT OF CARE TEST ENTER/EDIT ORDERABLES Final Result documented in this encounter Visit Diagnoses Diagnosis Type 2 diabetes mellitus with hyperglycemia, with long-term current use of insulin ([facility])- Primary Blurred vision, bilateral Other specified visual disturbances Hematuria, unspecified type Hypertension, unspecified type documented in this encounter Administered Medications Inactive Administered Medications - up to 3 most recent administrations Medication Order MAR Action Action Date Dose Rate Site Insulin Lispro solution 10 Units 10 Units, Injection, Once, On Sat07/29/24 at 1015, For 1 doseIndications:Type 2 diabetes mellitus with hyperglycemia, with long-term current use of insulin ([facility]) Given 07/29/2024 10:15 AM EST 10 Units Right Arm documented in this encounter Additional Health Concerns Assessment Noted Time PHQ-9 Depression Total Score: 4 07/29/19 10:06 AM EST documented as of this encounter Care Teams Cold Food Packer Relationship Specialty Start Date End Date Edwina Braxton FNP [address] [place] [address] [place] [address] PCP - General Family Medicine 03/01/21 documented as of this encounter
--- OUTSIDE RECORDS SUMMARY | 2024-07-30 16:16 | XMS_ITS | Encounter Summary ---
Author Organization [employer] Address [address] [place] [address] 7 [place] [address] Care Team Providers Care Lockstitch Back Maker Name Role Phone [facility] Primary Care Provider [phone] Reason for Visit * Reason Onset Date Comments Care Coordination 07/30/2024 Encounter Details Date Type Department Care Team ([facility] st Contact Info) Description 07/30/2024 Telephone [facility] 230 [place], [place] [phone] [facility] 230 [place] [address] Care Coordination Social History Tobacco Use Types Packs/Day Years [...] encounter Miscellaneous Notes * Telephone Encounter - Radha Gonzalez RN - 07/30/2024 4:11 PM EST TC placed to patient x2 in regards to below message. Patient did not answer and VM is now full, RN unable to leave VM. RN will re-attempt in AM. * Telephone Encounter - Radha Gonzalez RN - 07/30/2024 11:59 AM EST RN spoke to PCP in regards to below message.PCP reports d/t patients history of derrek gangrene and sepsis that if the patients home BS readings are >400 and he is experiencing pain with urination, fevers or chills then he should go to the ED to r/o UTI/infection. Patient was given Macrobid empirically however if BS are <400 and patient has pain with urination, fever or chills he should STILL seek ED d/t elevated WBC's and previous infectious hx. PCP also reports the patients creatininehas increased and PCP would like patient to HOLD olmesartan medication and have na RN BP visit in 2weeks for BP check and repeat labs to check creatine function. PCP also would like TV RN NV in 1 week to discuss BS readings. Patient was Rx'd CGM previously but it is unclear if he has p/u CGM supplies (he did not have a CGMon at appointment and has not had a CGM teaching appointment). RN called [facility] pharmacy who reports it appears the CGM supplies is being filled at an outside pharmacy (unable to determine which pharmacy). RX was only ever sent to [facility] pharmacy by PCP and they have not transferred RX to an outside pharmacy. Pharmacy also reports insurance is stating the medicationhas been filled over the qty limit. PA previously completed and approved. RN was informed to inquire with patient if he has p/u CGM supplies at alternative pharmacy and if not to return call to [facility] pharmacy for them to contact MH to determine how to assist in patient obtaining CGM supplies. TC placed to patient [phone] to discuss s/s, ED recommendation, schedule BS TV NV, schedule BPNV and discuss CGM however patient did not answer. RN left VM requesting CB to red team nurses. RN will re-attempt in PM. Sending to PCP as PEG ----- Message from Edwina Braxton sent at 07/30/2024 11:19 AM EST ----- Yesterday I left a voicemail with patient again advising him to proceed to emergency department. His sodium is normal when corrected for hyperglycemia. Please attempt to status check today for patient and schedule an RN visit within the next week to place CGM and titrate insulin. I placed a stat referral to [facility] [place] so hopefully we can get him in soon to be followed with pharmacy. Thank you! documented in this encounter Plan of Treatment Not on file documented as of this encounter Visit Diagnoses Not on filedocumented in this encounter Additional Health Concerns Assessment Noted Time PHQ-9 Depression Total Score: 4 07/29/19 25 10:06 AM EST documented as of this encounter Care Teams Lockstitch Back Maker Relationship Specialty Start Date End Date Edwina Braxton FNP 230 [place] [address] PCP - General Family Medicine 03/01/21 documented as of this encounter
--- OUTSIDE RECORDS SUMMARY | 2024-07-30 16:16 | XMS_ITS | Encounter Summary ---
Author Organization [employer] Address [address] [place] [address] 7 [place] [address] Care Team Providers Care Nematology Teacher Name Role Phone Edwina Braxton Primary Care Provider [phone] Encounter Details Date Type Department Care Team (Late st Contact Info) Description 12/05/2022 Abstract [facility] 230 [place], [place] [phone] Edwina Braxton FNP 230 [place] [address] Social History Tobacco Use Types Packs/Day Years [...] documented as of this encounter Care Teams Nematology Teacher Relationship Specialty Start Date End Date Edwina Braxton FNP [address] [place] [address] PCP - General Family Medicine 03/01/21 documented as of this encounter
--- OUTSIDE RECORDS SUMMARY | 2024-07-30 16:16 | XMS_ITS | Clinical Summary ---
Author Organization [facility] Address [address] [address] Phone Care Team Providers Care Practice Performance Manager Name Role Phone Irais Edwina Primary Care Provider [phone] Allergies Active Allergy Reactions Criticality Noted Date [...] (6 to 64 Years) Completed 11/06/2022 Insurance [facility] [place] Care Teams Practice Performance Manager Relationship Specialty Start Date End Date [facility] 230 [place] [address] PCP - General 07/03/22
--- OUTSIDE RECORDS SUMMARY | 2024-07-30 16:16 | XMS_ITS | Encounter Summary ---
Author Organization [employer] Address [address] [place] [address] 7 [place] [address] Care Team Providers Care Administration Specialist Name Role Phone Edwina Braxton Primary Care Provider [phone] Encounter Details Date Type Department Care Team (Late st Contact Info) Description 12/05/2022 Abstract [facility]INE 230 [place], [place] [phone] Edwina Braxton FNP 230 [place] [address] Social History Tobacco Use Types Packs/Day Years [...] documented as of this encounter Care Teams Administration Specialist Relationship Specialty Start Date End Date Edwina Braxton FNP 230 [place] [address] PCP - General Family Medicine 03/01/21 documented as of this encounter
--- OUTSIDE RECORDS SUMMARY | 2024-07-30 16:16 | XMS_ITS | Encounter Summary ---
Author Organization [employer] Address [address] [place] [address] 7 [place] [address] Care Team Providers Care Concrete Stone Fabricating Supervisor Name Role Phone Edwina Braxton [facility] Primary Care Provider [phone] Reason for Visit * Reason Comments Med Refill Encounter Details Date Type Department Care Team ([facility] Contact Info) Description 04/24/2023 Refill [facility] CH[facility] MED & PEDS [address] [place] [address] Ines Hui MD 230 [place] [address] Type 2 diabetes mellitus with hyperglycemia, without long-term current use of insulin ([facility]) Social History Tobacco Use Types Packs/Day [...] hyperglycemia, without long-term current use of insulin ([facility]) documented in this encounter Additional Health Concerns Assessment Noted Time PHQ-9 Depression Total Score: 0 03/18/20 23 10:55 AM EDT documented as of this encounter Care Teams Concrete Stone Fabricating Supervisor Relationship Specialty Start Date End Date Edwina Braxton FNP [address] [place] [address] PCP - General Family Medicine 03/01/21 documented as of this encounter
--- OUTSIDE RECORDS SUMMARY | 2024-07-30 16:16 | XMS_ITS | Encounter Summary ---
Author Organization [employer] Address [address] [place] [address] 7 [place] [address] Care Team Providers Care Manager Night Name Role Phone [facility] Primary Care Provider [phone] Reason for Visit * Reason Onset Date Comments Results 07/29/2024 Encounter Details Date Type Department Care Team ([facility] Contact Info) Description 07/29/2024 Telephone [facility] 230 [place], [place] [phone] [facility] 230 [place] [address] Results Social History Tobacco Use Types Packs/Day Years [...] encounter Miscellaneous Notes * Telephone Encounter - Keiko Unger RN - 07/29/2024 3:05 PM EST Critical result call from [facility] Glucose of 555 Nurse to task for PCP team. documented in this encounter Plan of Treatment Not on file documented as of this encounter Visit Diagnoses Not on filedocumented in this encounter Additional Health Concerns Assessment Noted Time PHQ-9 Depression Total Score: 4 07/29/19 25 10:06 AM EST documented as of this encounter Care Teams Manager Night Relationship Specialty Start Date End Date Edwina Braxton FNP [address] [place] [address] PCP - General Family Medicine 03/01/21 documented as of this encounter
--- OUTSIDE RECORDS SUMMARY | 2024-07-30 16:16 | XMS_ITS | Encounter Summary ---
Author Organization [employer] Address [address] [place] [address] 7 [place] [address] Care Team Providers Care Rubber Washer Name Role Phone Edwina Braxton [facility] Primary Care Provider [phone] Reason for Visit * Reason Comments Med Refill Encounter Details Date Type Department Care Team ([facility] st Contact Info) Description 07/10/2024 Refill [facility] MEDICINE 230 [place], [place] [phone] Laura Ferguson MD 230 [place], [place] [phone] Anxiety and depression Social History Tobacco Use [...] documented as of this encounter Care Teams Rubber Washer Relationship Specialty Start Date End Date Edwina Braxton FNP [address] [place] [address] PCP - General Family Medicine 03/01/21 documented as of this encounter
--- OUTSIDE RECORDS SUMMARY | 2024-07-30 16:16 | XMS_ITS | Encounter Summary ---
Author Organization [employer] Address [address] [place] [address] 7 [place] [address] Care Team Providers Care Fine Sander Name Role Phone [facility] Primary Care Provider Reason for Visit * Reason Comments Med Change Request Encounter Details Date Type Department Care Team ([facility] Contact Info) Description 07/29/2024 Refill [facility] CHC MED & PEDS [address] [place], [place] [phone] [facility] 230 [place] [address] Type 2 diabetes mellitus with hyperglycemia, without long-term current use of insulin ([facility]) Social History Tobacco Use Types [...] hyperglycemia, without long-term current use of insulin ([facility]) documented in this encounter Additional Health Concerns Assessment Noted Time PHQ-9 Depression Total Score: 4 07/29/19 25 10:06 AM EST documented as of this encounter Care Teams Fine Sander Relationship Specialty Start Date End Date Edwina Braxton FNP [address] [place] [address] PCP - General Family Medicine 03/01/21 documented as of this encounter
--- OUTSIDE RECORDS SUMMARY | 2024-07-30 16:16 | XMS_ITS | Encounter Summary ---
Author Organization [facility] Address [address] [place] [address] Phone Care Team Providers Care Addresser Name Role Phone [facility] Primary Care Provider [phone] Encounter Details Date Type Department Care Team (Late st Contact Info) Description 12/26/2021 Documentation Only [facility], [address] [place] [address] [facility] 230 [place] [address] Social History Tobacco Use Types Packs/Day Years [...] on filedocumented in this encounter Care Teams Addresser Relationship Specialty Start Date End Date [facility] 230 [place] [address] PCP - General 07/03/22 documented as of this encounter
--- OUTSIDE RECORDS SUMMARY | 2024-07-30 16:16 | XMS_ITS | Encounter Summary ---
Author Organization [employer] Address [address] [facility] 7t [place] [address] Care Team Providers Care Welder Name Role Phone Edwina Braxton [facility] Primary Care Provider [phone] Encounter Details Date Type Department Care Team [...] documented as of this encounter Care Teams Welder Relationship Specialty Start Date End Date Edwina Braxton FNP [address] [place] [address] PCP - General Family Medicine 03/01/21 documented as of this encounter
--- OUTSIDE RECORDS SUMMARY | 2024-07-30 16:16 | XMS_ITS | Encounter Summary ---
Author Organization [employer] Address [address] [facility] 7t [place] [address] Care Team Providers Care Advanced Developer Name Role Phone Edwina Braxton [facility] Primary Care Provider [phone] Encounter Details Date Type Department Care Team [...] documented as of this encounter Care Teams Advanced Developer Relationship Specialty Start Date End Date Edwina Braxton FNP [address] [place] [address] PCP - General Family Medicine 03/01/21 documented as of this encounter
--- OUTSIDE RECORDS SUMMARY | 2024-07-30 16:16 | XMS_ITS | Encounter Summary ---
Author Organization [employer] Address [address] [place] [address] 7 [place] [address] Care Team Providers Care Liquid Center Assembler Name Role Phone [place] [facility] Primary Care Provider [phone] Reason for Visit * Reason Onset Date Comments Med Change Request Appointment Request 06/13/2023 Encounter Details Date Type Department Care Team ([facility] st Contact Info) Description 06/13/2023 Refill [facility] 230 [place], [place] [phone] [facility] 230 [place], [place] [phone] History of stroke Social History Tobacco Use [...] documented as of this encounter Care Teams Liquid Center Assembler Relationship Specialty Start Date End Date Edwina Braxton FNP [address] [place] [address] PCP - General Family Medicine 03/01/21 documented as of this encounter
--- OUTSIDE RECORDS SUMMARY | 2024-07-30 16:16 | XMS_ITS | Encounter Summary ---
Author Organization [employer] Address [address] [place] [address] 7 [place] [address] Care Team Providers Care Social Service Manager Name Role Phone [facility] Primary Care Provider [phone] Reason for Visit * Reason Comments Pre-visit Planning SDOH screening negat alejandro and Tobacco screening negative Encounter Details Date Type Department Care Team ([facility] st Contact Info) Description 07/15/2024 Patient Outreach [facility]INE 230 [place], [place] [phone] [facility] 230 [place] [address] Pre-visit Planning (SDOH screening negative and Tobacco [...] Alcocer - 07/15/2024 11:33 AM EST CC Scott Helm placed successful outbound call to patient [...] documented as of this encounter Care Teams Social Service Manager Relationship Specialty Start Date End Date Edwina Braxton FNP [address] [place] [address] PCP - General Family Medicine 03/01/21 documented as of this encounter
--- OUTSIDE RECORDS SUMMARY | 2024-07-30 16:16 | XMS_ITS | Encounter Summary ---
Author Organization [employer] Address [address] [place] [address] 7 [place] [address] Care Team Providers Care Denture Processor Name Role Phone [facility] Primary Care Provider [phone] Reason for Visit * Reason Onset Date Comments Recieved Call 08/30/2023 Encounter Details Date Type Department Care Team ([facility] st Contact Info) Description 08/30/2023 Telephone [facility] MEDICINE 230 [place], [place] [phone] [facility] 230 [place] [address] Recieved Call Social History Tobacco Use Types [...] pt stating received a call this morning, comic book writer didn't see any notations. documented in this encounter Plan of Treatment Not on file documented as of this encounter Visit Diagnoses Not on filedocumented in this encounter Additional Health Concerns Assessment Noted Time PHQ-9 Depression Total Score: 0 08/23/19 24 9:11 AM EDT documented as of this encounter Care Teams Denture Processor Relationship Specialty Start Date End Date Edwina Braxton FNP 230 [place] [address] PCP - General Family Medicine 03/01/21 documented as of this encounter
--- OUTSIDE RECORDS SUMMARY | 2024-07-30 16:16 | XMS_ITS | Encounter Summary ---
Author Organization [facility] Address [address] [place] [address] Phone Care Team Providers Care Records Officer Name Role Phone [facility] Primary Care Provider [phone] Encounter Details Date Type Department Care Team (Late st Contact Info) Description 12/26/2021 Documentation Only [facility], [address] [place] [address] [facility] 230 [place] [address] Social History Tobacco Use Types Packs/Day Years [...] on filedocumented in this encounter Care Teams Records Officer Relationship Specialty Start Date End Date [facility] 230 [place] [address] PCP - General 07/03/22 documented as of this encounter
--- OUTSIDE RECORDS SUMMARY | 2024-07-30 16:16 | XMS_ITS | Encounter Summary ---
Author Organization [employer] Address [address] [place] [address] 7 [place] [address] Care Team Providers Care Printer Apprentice Name Role Phone Edwina Braxton Primary Care Provider [phone] Encounter Details Date Type Department Care Team (Late st Contact Info) Description 12/05/2022 Abstract [facility] 230 [place], [place] [phone] Edwina Braxton FNP 230 [place] [address] Social History Tobacco Use Types Packs/Day Years [...] documented as of this encounter Care Teams Printer Apprentice Relationship Specialty Start Date End Date Edwina Braxton FNP 230 [place] [address] PCP - General Family Medicine 03/01/21 documented as of this encounter
--- OUTSIDE RECORDS SUMMARY | 2024-07-30 16:16 | XMS_ITS | Encounter Summary ---
Author Organization [employer] Address [address] [place] [address] 7 [place] [address] Care Team Providers Care Electric Milkers Installer Name Role Phone [facility] Primary Care Provider [phone] Reason for Visit * Reason Onset Date Comments ER Follow-up 03/27/2023 Encounter Details Date Type Department Care Team ([facility] st Contact Info) Description 03/27/2023 Telephone [facility] 230 [place], [place] [phone] [facility] 230 [place] [address] ER Follow-up Social History Tobacco Use Types [...] an ED visit. [facility] for a stroke and discharged on 03/23. Pt does not know exact date, states it was a blur. Was advised will forward to team nurses for f/u. Please contact pt at [phone] documented in this encounter Plan of Treatment Not on file documented as of this encounter Visit Diagnoses Not on filedocumented in this encounter Additional Health Concerns Assessment Noted Time PHQ-9 Depression Total Score: 0 03/18/20 23 10:55 AM EDT documented as of this encounter Care Teams Electric Milkers Installer Relationship Specialty Start Date End Date Edwina Braxton FNP [address] [place] [address] PCP - General Family Medicine 03/01/21 documented as of this encounter
--- OUTSIDE RECORDS SUMMARY | 2024-07-30 16:16 | XMS_ITS | Clinical Summary ---
Author Organization [employer] Address [address] [place] [address] 7 [place] [address] Care Team Providers Care Furniture Maker Name Role Phone Edwina Braxton [facility] Primary Care Provider [phone] Allergies Active Allergy Reactions Criticality Noted Date [...] hyperglycemia, without long-term current use of insulin (CMS/[facility]) Use as directed to check blood sugar [...] daily. 50 g 3 024 2024 Active metFORMIN XR (Glucophage-XR) 500 MG 24 hr tabletIndicatio ns:Type 2 diabetes mellitus with hyperglycemia, without long-term current use of insulin (CMS/HCC) TAKE 1 TABLET DAILY BY MOUTH. IF [...] without long-term current use of insulin (CMS/HCC) TAKE 1 TABLET (81 MG) BY MOUTH IN THE MORNING 90 tablet 3 024 2024 Active Eliquis 5 MG tabletIndicatio ns:History of stroke TAKE 1 TABLET BY MOUTH TWICE A DAY IN THE MORNING AND IN THE EVENING 180 tablet 1 Active olmesartan (BENIcar) 5 MG tabletIndicatio ns:Primary hypertension TAKE 2 TABLETS BY MOUTH EVERY MORNING 180 tablet 1 024 Active atorvastatin (Lipitor) 80 MG tabletIndicatio ns:History of stroke TAKE 1 TABLET (80 MG) BY MOUTH IN THE MORNING 90 tablet 1 024 Active pantoprazole (ProtoNix) 40 MG EC tabletIndicatio ns:History of stroke TAKE 1 TABLET (40 MG) BY MOUTH BEFORE BREAKFAST 90 tablet 1 Active Alcohol Swabs (Alcohol Prep) 70 % padsIndications :Type 2 diabetes mellitus with hyperglycemia, without long-term current use of insulin (CMS/HCC) USE TO CHECK BLOOD SUGAR FOUR TIMES [...] HOURS IF NEEDED FOR ANXIETY. 10 tablet 025 Active glucose blood (FREESTYLE LITE) test stripIndication s:Type 2 diabetes mellitus with hyperglycemia, without long-term current use of insulin (CMS/HCC) USE DIRECTED TO CHECK BLOOD SUGAR FOUR TIMES DAILY 100 strip 11 025 Active Tirzepatide (Mounjaro) 5 MG/0.5ML solution auto-injectorIn dications:Type 2 diabetes mellitus with hyperglycemia, with long-term current use of insulin (CMS/HCC) Inject 5 mg under the skin 1 (one) time per week. 2 mL 3 025 Active insulin glargine (Lantus SoloStar) 100 UNIT/ML penIndications: Type 2 diabetes mellitus with hyperglycemia, with long-term current use of insulin (CMS/HCC) Inject 24 Units under the skin at bedtime. 3 mL 12 025 2025 Active nitrofurantoin, macrocrystal-mo nohydrate, (Macrobid) 100 MG capsuleIndicati ons:Type 2 diabetes mellitus with hyperglycemia, with long-term current use of insulin (CMS/HCC) Take 1 capsule (100 mg) by mouth 2 times daily for 7 days. 14 capsule 025 2024 Active insulin pen needle (B-D UF III MINI PEN NEEDLES) 31G x 5 mm miscIndications :Type 2 diabetes mellitus with hyperglycemia, without long-term current use of insulin (CMS/HCC) USE INSTRUCTED once a day 100 each 3 025 Active Continuous Glucose Sensor (FreeStyle Shivam 2 Sensor) miscIndications :Type 2 diabetes mellitus with hyperglycemia, with long-term current use of insulin (CMS/HCC) Apply 1 sensor every 14 days 2 each 2 025 Active Continuous Glucose Bioinformatics Programmer (FreeStyle Shivam 2 [place]) deviceIndicatio ns:Type 2 diabetes mellitus with hyperglycemia, with long-term current use of insulin (CMS/HCC) Scan sensor every 8 hours 1 each 025 Active glucose blood test stripIndication s:Type 2 diabetes mellitus with hyperglycemia, without long-term current use of insulin ([facility]) Use as directed to check blood sugar four times daily 100 each 12 023 2024 Discontinued insulin glargine (Toujeo Max SoloStar) 300 UNIT/ML injectionIndica tions:Type 2 diabetes mellitus with hyperglycemia, with long-term current use of insulin ([facility]) Inject 40 Units under the skin at bedtime. May self titrate 2 units every 3 days up to max dose of 50 units 1.5 mL 12 024 2024 Discontinued Continuous Glucose Bioinformatics Programmer (FreeStyle Shivam 2 [place]) deviceIndicatio ns:Type 2 diabetes mellitus with hyperglycemia, with long-term current use of insulin ([facility]) Scan sensor every 8 hours 1 each 024 2024 Discontinued(R eorder (will not trigger notification to Pharmacy)) Continuous Glucose Sensor (FreeStyle Shivam 2 Sensor) miscIndications :Type 2 diabetes mellitus with hyperglycemia, with long-term current use of insulin ([facility]) Apply 1 sensor every 14 days 2 each 2 024 2024 Discontinued(R eorder (will not trigger notification to Pharmacy)) Tirzepatide (Mounjaro) 2.5 MG/0.5ML solution pen-injectorInd ications:Type 2 diabetes mellitus with hyperglycemia, with long-term current use of insulin ([facility]) Inject 2.5 mg under the skin 1 (one) time per week. 2 mL 2 024 2024 Discontinued insulin pen needle (B-D UF III MINI PEN NEEDLES) 31G x 5 mm miscIndications :Type 2 diabetes mellitus with hyperglycemia, without long-term current use of insulin ([facility]) USE INSTRUCTED 100 each 11 024 2024 Discontinued LORazepam (Ativan) 0.5 MG tabletIndicatio ns:Anxiety and depression TAKE 1 TABLET (0.5 MG) BY MOUTH EVERY 6 (SIX) HOURS IF NEEDED FOR ANXIETY. 10 tablet 024 2024 Discontinued Tirzepatide (Mounjaro) 2.5 MG/0.5ML solution auto-injectorIn dications:Type 2 diabetes mellitus with hyperglycemia, without long-term current use of insulin ([facility]) INJECT THE CONTENTS OF 1 PEN SUBCUTANEOUSLY ONCE WEEKLY 2 mL 2 025 2024 Discontinued insulin pen needle (B-D UF III MINI PEN NEEDLES) 31G x 5 mm misc USE INSTRUCTED 100 each 11 025 2024 Discontinued Hospital, Clinic, or Other Facility Administered Medication Ordered Dose Route Frequency Start Date End Date Status Insulin Lispro solution 10 UnitsIndications:Type 2 diabetes mellitus with hyperglycemia, with long-term current use of insulin ([facility]) 10 Units IJ Once 07/29/2024 07/29/2024 Ended Active Problems Problem Noted Date Diagnosed Date Cerebral atherosclerosis 02/05/2023 Tobacco use 12/12/2022 Type 2 diabetes mellitus wit h hyperglycemia, without long-term current use of insulin 08/07/2022 Overview (06/10/2023): ?? Metformin 500mg XR ?? Trulicity 4.5mg SQ ?? Lantus 15 units ?? Jay OSBORNE initiated A1c 02/22/23-9.3% BMP: 06/2022, WNL [...] order CGM and check on status of jay OSBORNE Assessment & Plan (05/05/2023 10:54 AM EST): Lab Results Component Value Date HGBA1C 10.1 (A) 04/22/2023 ?? START lantus 15 units at bedtime ?? Will initiate PA for mounjaro start ?? Accepts referral to [facility] DM educator Assessment & Plan (04/03/2023 [...] lower cervical radiculopathy ?? Previously seen by [facility] pain mngmt ?10/2021 who did not feel carleen was a good candidate for services at [...] sparingly by patient. ?? Declines referral to [facility] Cerebrovascular accident 06/28/2022 Overview (03/18/2023): ?? 09/2020 [...] infarct noted? . ? ? Seen at [facility] 11/22/22 with right sided weakness. CTA h/n [...] lab results for hypercoag work up from [facility] ?? Continue ASA and eliquis Assessment & Plan (04/03/2023 2:47 PM EDT): ?? Continue daily ASA 81mg ?? Continue eliquis 5mg daily ?? Encouraged smoking cessation and weight loss Assessment & Plan (02/05/2023 12:11 PM EDT): ?? Will request recent [facility] echo and MRI report ?? Follow up [...] provided with info for education session at [facility] Weight Mngmt ?? Referral placed for bariatric surgery Paroxysmal atrial fibrillation 06/30/2021 Overview (07/01/2022): ?? Stable on eliquis Resolved Problems Problem Noted Date Diagnosed Date Resolved Date Prediabetes 07/28/2021 08/07/2022 Encounters Date Type Department Care Team Description 07/30/[address] [facility] MEDICINE [address] [facility] [place] [address] Edwina Braxton FNP Care Coordination 07/29/2024 9:30 AM EST Office Visit [facility] [address] [place] [address] Edwina Braxton FNP Type 2 diabetes mellitus with hyperglycemia, with long-term current use of insulin ([facility]) (Primary Dx); Blurred vision, bilateral; Hematuria, unspecified type; Hypertension, unspecified type 07/29/[address] [facility] PEDIATRICS [address] [place] [address] Edwina Braxton FNP Results 07/29/2024 Refill [facility] [address] [place] [address] Edwina Braxton FNP Type 2 diabetes mellitus with hyperglycemia, without long-term current use of insulin (CMS/HCC) 07/29/2024 Travel 07/28/2024 Travel 07/15/2024 Patient Outreach [facility] MEDICINE [address] [place] [address] Edwina Braxton FNP Pre-visit Planning (SDOH screening negative and Tobacco screening negative) 07/10/[address] [facility] MEDICINE [address] [facility] [place] [address] Edwina Braxton FNP Type 2 diabetes mellitus with hyperglycemia, without long-term current use of insulin (CMS/HCC) 07/10/[address] [facility] MEDICINE [address] [place] [address] Laura Ferguson MD Anxiety and depression 06/15/[address] [facility] MEDICINE [address] [place] [address] Irais, Edwina, ELECTRONIC COMMUNICATIONS TECHNICIAN Primary hypertension 06/09/[address] [facility] MEDICINE [address] [place] [address] Name, MD Danie Type 2 diabetes mellitus with hyperglycemia, without long-term current use of insulin ([facility]) 05/31/[address] [facility]INE [address] [facility] [place] [address] Foxworth, Edwina, ELECTRONIC COMMUNICATIONS TECHNICIAN Type 2 diabetes mellitus with hyperglycemia, without long-term current use of insulin ([facility]); Anxiety and depression from Last 3 Months [...] 08/22/2024 08/23/2023, 08/23/2023, 08/23/2023, Additional history exists Diabetes: Hemoglobin A1C 10/26/2024 025, 08/23/2023, 04/22/2023, Additional history exists SDOH Screening 07/15/2025 07/15/2024 Depression Screening 07/29/2025 07/29/2024, 07/29/19 Tobacco Screening 07/30/2025 07/30/2024 Zoster Vaccines (1 of 2) 2026 DTaP/Tdap/Td [...] hyperglycemia, with long-term current use of insulin ([facility]) C-REACTIVE PROTEIN Routine 07/29/2024 10 :36 AM EST Type 2 diabetes mellitus with hyperglycemia, with long-term current use of insulin (CMS/HCC) SED RATE BY MODIFIED WESTERGREN Routine 07/29/2024 10:36 AM EST Type 2 diabetes mellitus with hyperglycemia, with long-term current use of insulin (CMS/HCC) CBC WITH AUTO DIFFERENTIAL Routine 07/29/2024 10:36 AM EST Type 2 diabetes mellitus with hyperglycemia, with long-term current use of insulin (CMS/HCC) COMPREHENSIVE METABOLIC PANEL Routine 07/29/2024 10:36 AM EST Type 2 diabetes mellitus with hyperglycemia, with long-term current use of insulin (CMS/HCC) POCT GLUCOSE Routine 07/29/2024 9:35 AM EST Type 2 diabetes mellitus with hyperglycemia, with long-term current use of insulin (CMS/HCC) POCT GLYCATED HEMOGLOBIN, TOTAL Routine 07/29/2024 9:34 AM EST Type 2 diabetes mellitus with hyperglycemia, with long-term current use of insulin (CMS/HCC) LIPID PANEL, STANDARD Routine 11/06/2022 9:59 AM EDT Type 2 diabetes mellitus with hyperglycemia, without long-term current use of insulin (CMS/HCC) ZZZ HISTORICAL HEPATITIS C AB W/REFL TO [...] Appearance, UA cloudy QC Media Lot # Comment:[id number] Lot# Expiration Date Comment:03/02/2025 Urine 07/29/2024 11:0 6 AM EST [facility] POINT OF CARE TEST ENTER/EDIT ORDERABLES Final Result * (ABNORMAL) CBC auto differential (07/29/2024 10:36 AM EST) White Blood Count 13.5(H) 4.8 - 10.8 X10*3/uL [facility] Red Blood Count 5.79 4.60 - 5.80 X10*6/uL [facility] Hemoglobin 15.6 14.0 - 18.0 g/dl [facility] Hematocrit 47.2 42.0 - 52.0 % [facility] Mean Corpuscular Volume 81.5 80.0 - 98.0 fL [facility] Mean Corpuscular Hemoglobin 26.9(L) 27.0 - 33.0 pg [facility] Mean Corpuscular HGB Conc 33.1 31.0 - 36.0 g/dl [facility] Red Cell Distribution Width 16.9(H) 11.0 - 16.0 % [facility] Platelet Count 431(H) 160 - 400 X10*3/uL [facility] Mean Platelet Volume 11.5 9.4 - 12.4 fL [facility] Neutrophils Percent Auto 77.2(H) 45 - 73 % [facility] Imm Gran Pct Auto 0.4 0.0 - 0.4 % [facility] Lymphocytes Percent Auto 13.7(L) 20 - 40 % [facility] Monocytes Percent Auto 6.6 2 - 11 % [facility] Eosinophils Percent Auto 1.4 0 - 4 % [facility] Basophils Percent Auto 0.7 0 - 2 % [facility] NRBC Pct Auto 0.0 0.0 - 0.2 /100WBC [facility] Neutrophils Absolute Auto 10.4(H) 2.0 - 8.3 x10*3/uL [facility] Imm Gran Abs Auto 0.06(H) 0.00 - 0.03 X10*3/uL [facility] Lymphocytes Absolute Auto 1.9 1.2 - 4.9 X10*3/uL [facility] Monocytes Absolute Auto 0.9 0.1 - 1.2 X10*3/uL [facility] Eosinophils Absolute Auto 0.2 0.0 - 0.4 X10*3/uL [facility] Basophils Absolute Auto 0.1 0.0 - 0.2 X10*3/uL [facility] NRBC Abs Auto 0.000 0.0 - 0.012 X10*3/uL [facility] Blood Venous blood specimen / Unknown 07/29/2024 10:36 AM EST 07/29/2024 2:18 PM EST [facility] LAB BLOOD ORDERABLES Final Re sult Performing Organization Address [facility] Co de Phone Number [facility] [address] [place] [phone] * Sed Rate by Modified Jatin (07/29/2024 10:36 AM EST) Erythrocyte Sedimentation Rate 11 0 - 15 MM/HR [facility] Comment:Patients with polycy themia and many hemoglobin abnormalitiesmay have depressed sed rates whereas patients with anemiamay have elevated sed rates. Blood Venous blood specimen / Unknown 07/29/2024 10:36 AM EST 07/29/2024 2:18 PM EST [facility] ELECTRONIC COMMUNICATIONS TECHNICIAN LAB BLOOD ORDERABLES Final Re sult Performing Organization Address City/[facility]/ZIP Co de Phone Number [facility] [address] [place] [phone] * (ABNORMAL) C-reactive Protein (07/29/2024 10:36 AM EST) C Reactive Protein 0.56(H) < or = 0.50 mg/dL [facility] Blood Venous blood specimen / Unknown 07/29/2024 10:36 AM EST 07/29/2024 2:18 PM EST [facility] LAB BLOOD ORDERABLES Final Re sult [facility] [address] [place] [address] [phone] * (ABNORMAL) Comprehensive Metabolic Panel (07/29/2024 10:36 AM EST) Sodium 130(L) 135 - 145 mmol/L [facility] Potassium 4.2 3.3 - 5.1 mmol/L [facility] Chloride 97 96 - 108 mmol/L [facility] Carbon Dioxide 21(L) 22 - 29 mmol/L [facility] Anion Gap 16 12 - 20 [facility] Urea Nitrogen (BUN) 12 9 - 16 mg/dL [facility] Creatinine, Serum 1.45(H) 0.5 - 1.4 mg/dL [facility] Estimated Glomerular Filt Rate 52 [facility] Comment:Chronic Kidney Disea se: Estimated GFR < 60 mL/min/1.40a6Vhcxnv Kidney Disease: Estimated GFR < 15 mL/min/1.73m2 Glucose 556(HH) 60 - 115 mg/dL [facility] Comment:Critical value for G LUCOSE Results called to and read ervin: LILLIAN Selby Person calling: EDUARD Date: 07/29/24Time:1504 Calcium 9.1 8.4 - 10.2 mg/dL [facility] Bilirubin, Total 0.6 0.0 - 1.0 mg/dL [facility] Aspartate Amino Transferase 31 5 - 37 U/L [facility] Alanine Aminotransferase 42(H) 0 - 40 U/L [facility] Total Protein 7.8 6.5 - 8.0 g/dL [facility] Albumin Level 3.9 3.5 - 5.0 g/dL [facility] Alkaline Phosphatase 106 39 - 117 U/L [facility] Blood Venous blood specimen / Unknown 07/29/2024 10:36 AM EST 07/29/2024 2:18 PM EST [facility] LAB BLOOD ORDERABLES Final Re sult [facility] [address] [place] [phone] * (ABNORMAL) POCT glucose manually resulted (07/29/2024 9:35 AM EST) Glucose Blood, POC 500(A) 60 - 200 mg/dL Comment:[facility] QC Media Lot # Comment:[id number] Lot# Expiration Date Comment:12/03/2024 Blood Capillary blood specimen / Unknown 07/29/2024 9:35 AM EST [facility] POINT OF CARE TEST ENTER/EDIT ORDERABLES Final Result * (ABNORMAL) POCT A1C (07/29/2024 9:34 AM EST) Hemoglobin A1C 15.0(A) 4.0 - 6.0 % Comment:Error #106 (more maeve n 15.0) QC Media Lot # Comment:[id number] Lot# Expiration Date Comment:03/20/2026 Blood 07/29/2024 9:34 AM EST [facility] POINT OF CARE TEST ENTER/EDIT ORDERABLES Final Result * (ABNORMAL) Lipid Panel, Standard (11/06/2022 9:59 AM EDT) Cholesterol, Total 108 <200 mg/dL [facility] HDL Cholesterol 36(L) > OR = 40 mg/dL [facility] Triglycerides 110 <150 mg/dL [facility] LDL Cholesterol 52 mg/dL (calc) [facility] Comment: Reference range: <100 Desirable range <100 mg/dL for primary prevention; ?? <70 mg/dL for patients with CHD or diabetic patients with > or = 2 CHD risk factors. LDL-C is now calculated using the Pawel calculation, which is a validated novel method providing better accuracy than the Friedewald equation in the estimation of LDL-C. Thong ONEIL et al. JULES. 2013;310(19): 2068-8481 (http://education.[employer]/faq/XON525) Chol/HDLC Ratio 3.0 <5.0 (calc) [facility] Non-HDL Cholesterol 72 <130 mg/dL (calc) [facility] Comment: For patients with diabetes plus 1 major ASCVD risk factor, treating to a non-HDL-C goal of <100 mg/dL (LDL-C of <70 mg/dL) is considered a therapeutic option. Blood Venous blood specimen / Unknown 11/06/2022 9:59 AM EDT 11/06/2022 10:00 AM EDT Narrative [facility] - 11/06/2022 11:43 PM EDT FASTING:YES COLLECTION KIT GIVEN TO PATIENT. PATIENT ADVISED TO RETURN. FASTING: YES [facility] LAB BLOOD ORDERABLES Final Re sult [facility] [address], [place] [address] [facility] [address] [place] [phone] * HEPATITIS C AB W/REFL TO HCV RNA, QN, PCR (07/14/2021 10:33 AM EST) HEPATITIS C ANTIBODY NON-REACT LUZMA NON-REACT LUZMA [facility] INDEX 0.69 <1.00 [facility] Comment: ?? HCV antibody was non-reactive. There is no laboratory ?? evidence of HCV infection. ?? In most cases, no further action is required. However, if recent HCV exposure is suspected, a test for HCV RNA (test code 36703) is suggested. ?? For additional information please refer to http://WowOwow.[employer]/faq/ENJ86o7 (This link is being provided for informational/ educational purposes only.) ?? 07/14/2021 10:3 3 AM EST [facility] HISTORICAL/NON ORDERABLE LABS Final Result Performing Organization Address [facility] Phone Number [facility] [address] * HIV 1/2 ANTIGEN/ANTIBODY,FOURTH GENERATION W/RFL (07/14/2021 10:33 AM EST) [facility] HIV-1/2 ANTIGEN AND ANTIBODIES, 4TH GENERATION W/ REFLEX NON-REACT LUZMA NON-REACT LUZMA [facility] Comment: HIV-1 antigen and HIV-1/HIV-2 [...] ? For additional information please refer to http://WowOwow.[employer]/faq/DLO949 (This link is being provided for informational/ educational purposes only.) ? The performance of this assay has not been clinically validated in patients less than 2 years old. ?? 07/14/2021 10:3 3 AM EST [facility] LAB BLOOD ORDERABLES Final Re sult Performing Organization Address [facility] Phone Number [facility] [address] from Last 3 Months or Most Recently Relevant to Health Maintenance Insurance [facility] C3 Care Teams Furniture Maker Relationship Specialty Start Date End Date Edwina Braxton FNP [address] [place] [phone] PCP - General Family Medicine 03/01/21
--- OUTSIDE RECORDS SUMMARY | 2024-07-30 16:16 | XMS_ITS | Encounter Summary ---
Author Organization [employer] Address [address] [place] [address] [place] [address] Care Team Providers Care Summons Server Name Role Phone Spicer [facility] Primary Care Provider [phone] Reason for Visit * Reason Onset Date Comments Med Refill 09/02/2023 Encounter Details Date Type Department Care Team (Late st Contact Info) Description 09/02/2023 Refill [facility] MEDICINE [address] [place], [place] [phone] [facility] [address] [place] [address] Type 2 diabetes mellitus with hyperglycemia, without long-term current use of insulin ([facility]) Social History Tobacco Use Types Packs/Day [...] hyperglycemia, without long-term current use of insulin ([facility]) documented in this encounter Additional Health Concerns Assessment Noted Time PHQ-9 Depression Total Score: 0 08/23/19 24 9:11 AM EDT documented as of this encounter Care Teams Summons Server Relationship Specialty Start Date End Date Edwina Braxton FNP [address] [place] [phone] PCP - General Family Medicine 03/01/21 documented as of this encounter
--- OUTSIDE RECORDS SUMMARY | 2024-07-30 16:16 | XMS_ITS | Encounter Summary ---
Author Organization [employer] Address [address] [place] [address] [address] [place] [address] Care Team Providers Care Cold Water Machine Operator Name Role Phone Edwina Braxton Primary Care Provider [phone] Encounter Details Date Type Department Care Team (Late st Contact Info) Description 12/05/2022 Abstract [facility] MEDICINE [address] [place], [place] [phone] Edwina Braxton FNP [address] [place] [address] Social History Tobacco Use Types Packs/Day Years [...] as of this encounter Care Teams Cold Water Machine Operator Relationship Specialty Start Date End Date Edwina Braxton FNP [address] [place] [address] PCP - General Family Medicine 03/01/21 documented as of this encounter
--- OUTSIDE RECORDS SUMMARY | 2024-07-30 16:16 | XMS_ITS | Encounter Summary ---
Author Organization [employer] Address [address] [place] [address] 7 [place] [address] Care Team Providers Care Outside Sales Representative Insurance Name Role Phone [facility] Primary Care Provider [phone] Reason for Visit * Reason Comments Med Refill Encounter Details Date Type Department Care Team ([facility] st Contact Info) Description 07/10/2024 Refill [facility] 230 [place], [place] [phone] [facility] 230 [place] [address] Type 2 diabetes mellitus with hyperglycemia, without long-term current use of insulin ([facility]) Social History Tobacco Use Types Packs/Day Years [...] hyperglycemia, without long-term current use of insulin ([facility]) documented in this encounter Additional Health Concerns Assessment Noted Time PHQ-9 Depression Total Score: 0 08/23/19 24 9:11 AM EDT documented as of this encounter Care Teams Outside Sales Representative Insurance Relationship Specialty Start Date End Date Edwina Braxton FNP [address] [place] [address] PCP - General Family Medicine 03/01/21 documented as of this encounter
== END 2024-07-30 13:33 | disposition home or self-care (01) ==
LOC: HO.CHCLNP 13:32
PROVIDERS: Visit Provider Registered Nurse
DX: E11.65 Type 2 diabetes mellitus with hyperglycemia (principal); Z79.4 Long term (current) use of insulin
CPT/HCPCS: 87086

== ENCOUNTER 2024-09-24 10:01 | Outpatient (REF) | payer MEDICAID, SELFPAY ==
[2024-09-24 11:17] LABS: MANUAL DIFF FLAG NO
--- OUTSIDE RECORDS SUMMARY | 2024-09-24 11:25 | XMS_ITS | Encounter Summary ---
Author Organization [facility] Address [address] [place] [address] Phone Care Team Providers Care Bait Digger Name Role Phone [facility] Primary Care Provider [phone] Encounter Details Date Type Department Care Team (Late st Contact Info) Description 12/26/2021 Documentation Only [facility] [place], [address] [place] [address] [facility] 230 [place] [address] Social History Tobacco Use Types Packs/Day Years [...] on filedocumented in this encounter Care Teams Bait Digger Relationship Specialty Start Date End Date [facility] 230 [place] [address] PCP - General 07/03/22 documented as of this encounter
--- OUTSIDE RECORDS SUMMARY | 2024-09-24 11:25 | XMS_ITS | Encounter Summary ---
Author Organization [employer] Address [address] [place] [address] 7 [place] [address] Care Team Providers Care Restaurant Assistant Manager Name Role Phone [facility] Primary Care Provider [phone] Reason for Visit * Reason Onset Date Comments Chart prep 09/24/2024 Encounter Details Date Type Department Care Team ([facility] st Contact Info) Description 09/24/2024 Telephone [facility] 230 [place], [place] [phone] [facility] 230 [place] [address] Chart prep Social History Tobacco Use Types Packs/Day Years [...] encounter Miscellaneous Notes * Telephone Encounter - Maggie Payne MA - 09/24/2024 10:29 AM EDT Chart Prep Labs: not done Images: done Referrals: complete Vaccines due: yes Screenings: colonoscopy, eye exam, and foot exam Overdue care gaps: Glucose and Disability screen documented in this encounter Plan of Treatment Upcoming Encounters Date Type Department Care Team (Late st Contact Info) Description 09/28/2024 9:45 AM EDT Office Visit [facility] MEDICINE [address] [place] [address] Edwina Braxton FNP 230 [place] [address] 10/29/2024 9:30 AM EDT Medication Management [facility] MEDICINE [address] [place] [address] Rebeka Hester, PharmD 230 [place] [address] documented as of this encounter Visit Diagnoses Not on filedocumented in this encounter Additional Health Concerns Assessment Noted Time PHQ-9 Depression Total Score: 4 07/29/19 25 10:06 AM EST documented as of this encounter Care Teams Restaurant Assistant Manager Relationship Specialty Start Date End Date Edwina Braxton FNP 230 [place] [address] PCP - General Family Medicine 03/01/21 documented as of this encounter
--- OUTSIDE RECORDS SUMMARY | 2024-09-24 11:25 | XMS_ITS | Encounter Summary ---
Author Organization [employer] Address [address] [facility] 7t [place] [address] Care Team Providers Care Subway Conductor Name Role Phone Edwina Braxton [facility] Primary Care Provider [phone] Encounter Details Date Type Department Care Team (Latest Contact Info) Description 09/24/2024 Travel Social History Tobacco Use Types Packs/Day [...] as of this encounter Plan of Treatment Upcoming Encounters Date Type Department Care Team (Late st Contact Info) Description 09/28/2024 9:45 AM EDT Office Visit [facility] MEDICINE [address] [place] [address] Edwina Braxton FNP 230 [place] [address] 10/29/2024 9:30 AM EDT Medication Management [facility] [address] [place] [address] Rebeka Hester, PharmD [address] [place] [address] documented as of this encounter Visit Diagnoses Not on filedocumented in this encounter Additional Health Concerns Assessment Noted Time PHQ-9 Depression Total Score: 4 07/29/19 25 10:06 AM EST documented as of this encounter Care Teams Subway Conductor Relationship Specialty Start Date End Date Edwina Braxton FNP [address] [place] [address] PCP - General Family Medicine 03/01/21 documented as of this encounter
--- OUTSIDE RECORDS SUMMARY | 2024-09-24 11:25 | XMS_ITS | Encounter Summary ---
Author Organization [facility] Address [address] [place] [address] Phone Care Team Providers Care Probation Agent Name Role Phone [facility] Primary Care Provider [phone] Encounter Details Date Type Department Care Team (Late st Contact Info) Description 12/26/2021 Documentation Only [facility] [place], [address] [place] [address] [facility] 230 [place] [address] Social History Tobacco Use Types Packs/Day Years [...] on filedocumented in this encounter Care Teams Probation Agent Relationship Specialty Start Date End Date [facility] 230 [place] [address] PCP - General 07/03/22 documented as of this encounter
--- OUTSIDE RECORDS SUMMARY | 2024-09-24 11:25 | XMS_ITS | Encounter Summary ---
Author Organization [employer] Address [address] [place] [address] [place] [address] Care Team Providers Care Secondary Market Manager Name Role Phone Edwina Braxton [facility] Primary Care Provider [phone] Reason for Referral * Consultation (Routine) - Authorized Specialty Diagnoses / Procedures Referred By Contac t Referred To Contact Pharmacy Diagnoses Type 2 diabetes mellitus with hyperglycemia, without long-term current use of insulin (CMS/HCC) Laura Ferguson MD 230 [place] [address] Phone: tel: fax: Referral ID Status Reason Start Date Expiration Date Visits Requested Visits Authorized [id number] Authorized Consult and Treat 08/21/2024 08/21/2025 6 6 Encounter Details Date Type Department Care Team (Late st Contact Info) Description 08/21/2024 Orders Only [facility] 230 [place], [place] [phone] Laura Ferguson MD 230 [place], [place] [phone] Type 2 diabetes mellitus with hyperglycemia, without long-term current use of insulin (CMS/HCC) (Primary Dx) Social History Tobacco Use Types Packs/Day Years [...] Description 09/28/2024 9:45 AM EDT Office Visit [facility] 230 [place] [address] [facility] 230 [place] [address] 10/29/2024 9:30 AM EDT Medication Management [facility] 230 [place] [address] Rebeka Hester, Wendy 230 [place] [address] Scheduled Referrals Name Type Priority Associated Diagnoses Orde r Schedule Referral to Pharmacy CDTM Outpatient Referral Routine Type 2 diabetes mellitus with hyperglycemia, without long-term current use of insulin ([facility]) Ordered: 08/21/2024 documented as of this encounter Visit Diagnoses Diagnosis Type 2 diabetes mellitus with hyperglycemia, without long-term current use of insulin ([facility])- Primary documented in this encounter Additional Health Concerns Assessment Noted Time PHQ-9 Depression Total Score: 4 07/29/19 25 10:06 AM EST documented as of this encounter Care Teams Secondary Market Manager Relationship Specialty Start Date End Date Edwina Braxton FNP 230 [place] [address] PCP - General Family Medicine 03/01/21 documented as of this encounter
--- OUTSIDE RECORDS SUMMARY | 2024-09-24 11:25 | XMS_ITS | Encounter Summary ---
Author Organization [employer] Address [address] [place] [address] 7 [place] [address] Care Team Providers Care Fast Food Supervisor Name Role Phone [facility] Primary Care Provider [phone] Reason for Visit * Reason Onset Date Comments Recieved Call 08/30/2023 Encounter Details Date Type Department Care Team ([facility] st Contact Info) Description 08/30/2023 Telephone [facility]INE 230 [place], [place] [phone] [facility] 230 [place] [address] Recieved Call Social History Tobacco Use Types [...] the past 12 months, has t he [employer], gas, oil or water company threatened to [...] pt stating received a call this morning, casualty underwriter didn't see any notations. documented in this encounter Plan of Treatment Upcoming Encounters Date Type Department Care Team (Late st Contact Info) Description 09/28/2024 9:45 AM EDT Office Visit [facility] MEDICINE [address] [place] [address] North PomfretEdwina, NOCTURNIST 230 [place] [address] 10/29/2024 9:30 AM EDT Medication Management [facility]INE [address] [place] [address] Rebeka Hester, PriyankD 230 [place] [address] documented as of this encounter Visit Diagnoses Not on filedocumented in this encounter Additional Health Concerns Assessment Noted Time PHQ-9 Depression Total Score: 0 08/23/19 24 9:11 AM EDT documented as of this encounter Care Teams Fast Food Supervisor Relationship Specialty Start Date End Date Edwina Braxton FNP [address] [place] [address] PCP - General Family Medicine 03/01/21 documented as of this encounter
--- OUTSIDE RECORDS SUMMARY | 2024-09-24 11:25 | XMS_ITS | Encounter Summary ---
Author Organization [employer] Address [address] [place] [address] 7 [place] [address] Care Team Providers Care Sheep Farm Worker Name Role Phone [facility] Primary Care Provider [phone] Reason for Visit * Reason Onset Date Comments Med Change Request Appointment Request 06/13/2023 Encounter Details Date Type Department Care Team ([facility] st Contact Info) Description 06/13/2023 Refill [facility] 230 [place], [place] [phone] [facility] 230 [place], [place] [phone] History of stroke Social History Tobacco Use [...] Miscellaneous Notes * Telephone Encounter - Melanie Winkler - 06/14/2023 12:53 PM EST Called pt X2 to schedule DM appt. No answer LVM\ sent unable to contact letter documented in this encounter Plan of Treatment Upcoming Encounters Date Type Department Care Team (Late st Contact Info) Description 09/28/2024 9:45 AM EDT Office Visit [facility] MEDICINE [address] [place] [address] Edwina Braxton [address] [address] 10/29/2024 9:30 AM EDT Medication Management [facility] MEDICINE [address] [place] [address] Rebeka Hester, PharmD [address] [place] [address] documented as of this encounter Visit Diagnoses Diagnosis History of stroke Transient ischemic attack (TIA), and cerebral infarction without residual deficits documented in this encounter Additional Health Concerns Assessment Noted Time PHQ-9 Depression Total Score: 0 05/20/20 10:46 AM EST documented as of this encounter Care Teams Sheep Farm Worker Relationship Specialty Start Date End Date Edwina Braxton FNP [address] [place] [address] PCP - General Family Medicine 03/01/21 documented as of this encounter
--- OUTSIDE RECORDS SUMMARY | 2024-09-24 11:25 | XMS_ITS | Encounter Summary ---
Author Organization [employer] Address [address] [place] [address] 7 [place] [address] Care Team Providers Care Mobile Home Technician Name Role Phone Edwina Braxton [facility] Primary Care Provider [phone] Reason for Visit * Reason Comments Med Refill Encounter Details Date Type Department Care Team ([facility] Contact Info) Description 04/24/2023 Refill [facility] [address] [place] [address] Ines Hui MD 230 [place] [address] Type 2 diabetes mellitus with hyperglycemia, without long-term current use of insulin ([facility]) Social History Tobacco Use Types Packs/Day Years [...] Description 09/28/2024 9:45 AM EDT Office Visit [facility] MEDICINE [address] [place] [address] Edwina Braxton FNP 230 [place] [address] 10/29/2024 9:30 AM EDT Medication Management [address] [address] Rebeka Hester, PharmD 230 [place] [address] documented as of this encounter Visit Diagnoses Diagnosis Type 2 diabetes mellitus with hyperglycemia, without long-term current use of insulin ([facility]) documented in this encounter Additional Health Concerns Assessment Noted Time PHQ-9 Depression Total Score: 0 03/18/20 23 10:55 AM EDT documented as of this encounter Care Teams Mobile Home Technician Relationship Specialty Start Date End Date Edwina Braxton FNP [address] [place] [address] PCP - General Family Medicine 03/01/21 documented as of this encounter
--- OUTSIDE RECORDS SUMMARY | 2024-09-24 11:25 | XMS_ITS | Encounter Summary ---
Author Organization [facility] Address [address] [place] [address] Phone Care Team Providers Care Sock Examiner Name Role Phone [facility] Primary Care Provider Encounter Details Date Type Department Care Team (Late st Contact Info) Description 12/26/2021 Documentation Only [facility] [place], [address] [place] [address] [facility] 230 [place] [address] Social History Tobacco Use Types Packs/Day Years [...] on filedocumented in this encounter Care Teams Sock Examiner Relationship Specialty Start Date End Date [facility] 230 [place] [address] PCP - General 07/03/22 documented as of this encounter
--- OUTSIDE RECORDS SUMMARY | 2024-09-24 11:25 | XMS_ITS | Encounter Summary ---
Author Organization [employer] Address [address] [place] [address] 7 [place] [address] Care Team Providers Care Dental Equipment Installer And Servicer Name Role Phone [place] [facility] Primary Care Provider [phone] Reason for Visit * Reason Onset Date Comments Med Refill 09/02/2023 Encounter Details Date Type Department Care Team (Late st Contact Info) Description 09/02/2023 Refill [facility] 230 [place], [place] [phone] [facility] 230 [place] [address] Type 2 diabetes mellitus with hyperglycemia, without long-term current use of insulin ([facility]) Social History Tobacco Use Types [...] the past 12 months, has t he [employer], gas, oil or water company threatened to [...] Description 09/28/2024 9:45 AM EDT Office Visit [facility] MEDICINE [address] [place] [address] Edwina Braxton FNP [address] [place] [address] 10/29/2024 9:30 AM EDT Medication Management [facility] [address] [place] [address] Rebeka Hester, PharmD [address] [place] [address] documented as of this encounter Visit Diagnoses Diagnosis Type 2 diabetes mellitus with hyperglycemia, without long-term current use of insulin ([facility]) documented in this encounter Additional Health Concerns Assessment Noted Time PHQ-9 Depression Total Score: 0 08/23/19 24 9:11 AM EDT documented as of this encounter Care Teams Dental Equipment Installer And Servicer Relationship Specialty Start Date End Date Edwina Braxton FNP [address] [place] [address] PCP - General Family Medicine 03/01/21 documented as of this encounter
--- OUTSIDE RECORDS SUMMARY | 2024-09-24 11:25 | XMS_ITS | Clinical Summary ---
Author Organization [facility] Address [address] [address] Phone Care Team Providers Care Glass Embosser Name Role Phone [facility] Edwina Primary Care Provider [phone] Allergies Active Allergy Reactions Criticality Noted Date [...] Diabetes: Hemoglobin A1C 11/23/2023 08/23/2023 Influenza Vaccine (Season Ended) 2025 Pneumococcal Vaccine: Peds ( 0 to 5 Years) and At-Risk Patients (6 to 49 Years) Completed 11/06/2022 Insurance [facility] Medicaid [place] Medicaid [place] Care Teams Glass Embosser Relationship Specialty Start Date End Date [facility] 230 [place] [address] PCP - General 07/03/22
--- OUTSIDE RECORDS SUMMARY | 2024-09-24 11:26 | XMS_ITS | Encounter Summary ---
Author Organization [employer] Address [address] [place] [address] 7 [place] [address] Care Team Providers Care Dining Car Steward Name Role Phone Edwina Braxton [facility] Primary Care Provider [phone] Encounter Details Date Type Department Care Team ([facility] Contact Info) Description 12/05/2022 Abstract [facility] MEDICINE [address] [place] [address] [phone] Edwina Braxton [address] [phone] Social History Tobacco Use Types Packs/Day Years [...] Upcoming Encounters Date Type Department Care Team ([facility] Contact Info) Description 09/28/2024 9:45 AM EDT Office Visit [facility] MEDICINE [address] [place] [address] [phone] Edwina Braxton [facility] 230 [place] [address] 10/29/2024 9:30 AM EDT Medication Management [facility]INE 230 [place], [place] [phone] Rebeka Hester, Wendy 230 [place] [address] documented as of this encounter Visit Diagnoses Not on filedocumented in this encounter Additional Health Concerns Assessment Noted Time PHQ-9 Depression Total Score: 0 06/28/19 23 11:27 AM EST documented as of this encounter Care Teams Dining Car Steward Relationship Specialty Start Date End Date Edwina Braxton FNP [address] [place] [address] PCP - General Family Medicine 03/01/21 documented as of this encounter
--- OUTSIDE RECORDS SUMMARY | 2024-09-24 11:26 | XMS_ITS | Clinical Summary ---
Author Organization [employer] Address [address] [place] [address] 7 [place] [address] Care Team Providers Care Piercing Artist Name Role Phone Edwina Braxton SUPPLY ANALYST Primary Care Provider [phone] Allergies Active Allergy Reactions Criticality Noted Date [...] needed for smoking cessation. 100 lozenge 1 06/28/19 23 Active acetaminophen (Tylenol) 500 MG tablet Take 1 tablet by mouth every 12 (twelve) hours if needed. Active Blood Glucose Monitoring Suppl (GNP Easy Touch Glucose Meter) deviceIndicatio ns:Type 2 diabetes mellitus with hyperglycemia, without long-term current use of insulin (CMS/HCC) Use as directed to check blood sugar four times daily 1 each 04/24/20 23 Active lidocaine (Lidoderm) 5 % patchIndication s:Neuralgia APPLY 1 PATCH IN THE MORNING REMOVE AND DISARD PATCH WITHIN 12 HOURS OR DIRECTED 90 patch 3 08/07/19 24 Active metFORMIN XR (Glucophage-XR) 500 MG 24 hr tabletIndicatio ns:Type 2 diabetes mellitus with hyperglycemia, without long-term current use of insulin (CMS/HCC) TAKE 1 TABLET DAILY BY MOUTH. IF TOLERATING WELL MAY INCREASE TO 1 TABLET TWICE DAILY 180 tablet 1 02/14/20 24 Active Aspirin Low Dose 81 MG EC tabletIndicatio ns:Type 2 diabetes mellitus with hyperglycemia, without long-term current use of insulin (CMS/HCC) TAKE 1 TABLET (81 MG) BY MOUTH IN THE MORNING 90 tablet 3 03/30/20 24 025 Active Eliquis 5 MG tabletIndicatio ns:History of stroke TAKE 1 TABLET BY MOUTH TWICE A DAY IN THE MORNING AND IN THE EVENING 180 tablet 1 04/07/20 24 Active olmesartan (BENIcar) 5 MG tabletIndicatio ns:Primary hypertension TAKE 2 TABLETS BY MOUTH EVERY MORNING 180 tablet 1 04/15/20 24 Active atorvastatin (Lipitor) 80 MG tabletIndicatio ns:History of stroke TAKE 1 TABLET (80 MG) BY MOUTH IN THE MORNING 90 tablet 1 04/15/20 24 Active pantoprazole (ProtoNix) 40 MG EC tabletIndicatio ns:History of stroke TAKE 1 TABLET (40 MG) BY MOUTH BEFORE BREAKFAST 90 tablet 1 04/15/20 24 Active Alcohol Swabs (Alcohol Prep) 70 % padsIndications :Type 2 diabetes mellitus with hyperglycemia, without long-term current use of insulin (CMS/HCC) USE TO CHECK BLOOD SUGAR FOUR TIMES A DAY 100 each 11 06/01/20 24 Active nicotine (Nicoderm, Step 1) 21 MG/24HR patch PLACE 1 PATCH ON THE SKIN 1 TIME EACH DAY AT THE SAME TIME. 28 patch 3 06/01/20 24 Active FreeStyle lancetsIndicati ons:Type 2 diabetes mellitus with hyperglycemia, without long-term current use of insulin (CMS/HCC) USE DIRECTED TO CHECK BLOOD SUGAR FOUR TIMES DAILY 100 each 5 06/10/19 25 Active amLODIPine (Norvasc) 10 MG tabletIndicatio ns:Primary hypertension TAKE 1 TABLET BY MOUTH EVERY MORNING 90 tablet 3 06/15/19 25 Active LORazepam (Ativan) 0.5 MG tabletIndicatio ns:Anxiety and depression TAKE 1 TABLET (0.5 MG) BY MOUTH EVERY 6 (SIX) HOURS IF NEEDED FOR ANXIETY. 10 tablet 07/10/19 25 Active glucose blood (FREESTYLE LITE) test stripIndication s:Type 2 diabetes mellitus with hyperglycemia, without long-term current use of insulin (CMS/HCC) USE DIRECTED TO CHECK BLOOD SUGAR FOUR TIMES DAILY 100 strip 11 07/10/19 25 Active insulin pen needle (B-D UF III MINI PEN NEEDLES) 31G x 5 mm miscIndications :Type 2 diabetes mellitus with hyperglycemia, without long-term current use of insulin (CMS/HCC) USE INSTRUCTED once a day 100 each 3 07/30/19 25 Active Continuous Glucose Sensor (FreeStyle Shivam 2 Sensor) miscIndications :Type 2 diabetes mellitus with hyperglycemia, with long-term current use of insulin (CMS/[facility]) Apply 1 sensor every 14 days 2 each 2 07/30/19 25 Active Tirzepatide (Mounjaro) 7.5 MG/0.5ML solution auto-injectorIn dications:Type 2 diabetes mellitus with hyperglycemia, with long-term current use of insulin (CMS/[facility]) Inject 7.5 mg under the skin 1 (one) time per week. 2 mL 3 08/29/19 25 Active insulin glargine (Lantus SoloStar) 100 UNIT/ML penIndications: Type 2 diabetes mellitus with hyperglycemia, with long-term current use of insulin (CMS/[facility]) Inject 34 Units under the skin at bedtime. Dose increase. May not need new rx yet 3 mL 12 08/29/19 25 026 Active Continuous Glucose Slots Manager (FreeStyle Shivam 2 [place]) deviceIndicatio ns:Type 2 diabetes mellitus with hyperglycemia, with long-term current use of insulin (CMS/[facility]) SCAN SENSOR EVERY 8 HOURS 1 each 09/15/19 25 Active escitalopram (Lexapro) 20 MG tabletIndicatio ns:Anxiety and depression TAKE 1 TABLET (20 MG) BY MOUTH ONCE PER DAY. OK TO INCREASE TO 10MG IF TOLERATING WELL 90 tablet 1 09/19/19 25 026 Active escitalopram (Lexapro) 20 MG tabletIndicatio ns:Anxiety and depression Take 1 tablet (20 mg) by mouth Once per day. OK to increase to 10mg if tolerating well 90 tablet 1 03/18/20 24 025 Discontinued Tirzepatide (Mounjaro) 5 MG/0.5ML solution auto-injectorIn dications:Type 2 diabetes mellitus with hyperglycemia, with long-term current use of insulin ([facility]) Inject 5 mg under the skin 1 (one) time per week. 2 mL 3 07/29/19 25 025 Discontinued Continuous Glucose Slots Manager (FreeStyle Shivam 2 [place]) deviceIndicatio ns:Type 2 diabetes mellitus with hyperglycemia, with long-term current use of insulin ([facility]) Scan sensor every 8 hours 1 each 07/30/19 25 025 Discontinued insulin glargine (Lantus SoloStar) 100 UNIT/ML penIndications: Type 2 diabetes mellitus with hyperglycemia, with long-term current use of insulin ([facility]) Inject 30 Units under the skin at bedtime. 3 mL 12 08/22/19 25 025 Discontinued(R eorder (will not trigger notification to Pharmacy)) Active Problems Problem Noted Date Diagnosed Date [...] for mounjaro start ?? Accepts referral to [facility] DM educator Assessment & Plan (04/03/2023 [...] lower cervical radiculopathy ?? Previously seen by [facility] pain [facility]ng[facility] ?10/2021 who [facility] not feel [facility] a good [facility] for services [...] sparingly by patient. ?? Declines referral to [facility] Cerebrovascular accident 06/28/2022 Overview (03/18/2023): ?? 09/2020 [...] infarct noted? . ? ? Seen at [facility] 11/22/22 with right sided weakness. CTA h/n [...] lab results for hypercoag work up from [facility] ?? Continue ASA and eliquis Assessment & Plan (04/03/2023 2:47 PM EDT): ?? Continue daily ASA 81mg ?? Continue eliquis 5mg daily ?? Encouraged smoking cessation and weight loss Assessment & Plan (02/05/2023 12:11 PM EDT): ?? Will request recent [facility] echo and MRI report ?? Follow up [...] provided with info for education session at [facility] ?? Referral placed for bariatric surgery Paroxysmal atrial fibrillation 06/30/2021 Overview (07/01/2022): ?? Stable on eliquis Resolved Problems Problem Noted Date Diagnosed Date Resolved Date Prediabetes 07/28/2021 08/07/2022 Encounters Date Type Department Care Team Description 09/24/2024 Telephone [facility] [place] [address] Edwina Braxton FNP Chart prep 09/24/2024 Travel 09/18/2024 Refill [facility] [place] [address] [facility] Anxiety and depression 09/12/2024 Refill [facility] [address] [facility] [place] [phone] Edwina Braxton FNP Type 2 diabetes mellitus with hyperglycemia, with long-term current use of insulin (CMS/HCC) 09/10/2024 Telephone [facility] [place] [address] IraisEdwina wood FNP Appointment Request 08/28/2024 11:15 AM EDT Office Visit [facility] [place] [address] Edwina Braxton FNP Type 2 diabetes mellitus with hyperglycemia, with long-term current use of insulin (CMS/HCC) (Primary Dx); Hematuria, unspecified type; Paroxysmal atrial fibrillation (CMS/HCC); Primary hypertension; Chronic kidney disease, unspecified CKD stage 08/28/2024 Travel 08/21/2024 Orders Only [facility] [place] [address] Laura Ferguson MD Type 2 diabetes mellitus with hyperglycemia, without long-term current use of insulin (CMS/HCC) (Primary Dx) 08/20/2024 1:00 PM EDT Clinical Support [facility] [place] [address] Radha Gonzalez, RN Type 2 diabetes mellitus with hyperglycemia, without long-term current use of insulin (CMS/HCC) 08/20/2024 Telephone [facility] [place] [address] Edwina Braxton FNP 08/20/2024 Refill [facility] MEDICINE [address] [place] [address] [facility] Type 2 diabetes mellitus with hyperglycemia, with long-term current use of insulin (CMS/HCC) 08/20/2024 Telephone [facility] MEDICINE [address] [place] [address] [facility] Pharmacy CDTM 08/20/2024 Travel 08/18/2024 9:00 AM EDT Office Visit [facility] OPTOMETRY [address] [place] [address] Shadi, Jeanette, OD Type 2 diabetes mellitus with hyperglycemia, with long-term current use of insulin (CMS/HCC) (Primary Dx); Severe stage glaucoma 08/18/2024 Travel 08/14/2024 Population Health Risk Score [facility] () [address] [phone] Provider, Population Health Generic 08/12/2024 Telephone [facility] MEDICINE [address] [place] [address] [facility] 08/11/2024 2:30 PM EDT Telemedicine [facility] MEDICINE [address] [place] [address] Emperatriz Isbell, SANDY Type 2 diabetes mellitus with hyperglycemia, without long-term current use of insulin (CMS/HCC); Primary hypertension 08/11/2024 Telephone [facility] MEDICINE [address] [place] [address] Emperatriz Isbell, RN BS/ BP check 08/11/2024 Travel 08/07/2024 Travel 08/03/2024 Telephone [facility] MEDICINE [address] [place] [address] [facility] 07/30/2024 Telephone [facility] MEDICINE [address] [place] [address] [facility] Care Coordination 07/29/2024 9:30 AM EST Office Visit [facility] MED & PEDS [address] [facility] [place] [address] [facility] Type 2 diabetes mellitus with hyperglycemia, with long-term current use of insulin (CMS/HCC) (Primary Dx); Blurred vision, bilateral; Hematuria, unspecified type; Hypertension, unspecified type 07/29/2024 Telephone [facility] PEDIATRICS [address] [place] [address] Edwina Braxton FNP Results 07/29/2024 Refill [facility] MED & PEDS [address] [facility] [place], [place] [phone] IraisEdwina wood [facility] Type 2 diabetes mellitus with hyperglycemia, without long-term current use of insulin ([facility]) 07/29/2024 Travel 07/28/2024 Travel 07/15/2024 Patient Outreach [facility] MEDICINE [address] [place], [place] [phone] Edwina Braxton FNP Pre-visit Planning (SDOH screening negative and Tobacco screening negative) 07/10/2024 Refill [facility] MEDICINE [address] [place] [address] [facility] Type 2 diabetes mellitus with hyperglycemia, without long-term current use of insulin ([facility]) 07/10/2024 Refill [facility] MEDICINE [address] [place] [address] Laura Ferguson MD Anxiety and depression from Last 3 Months Immunizations Name Administration Dates Next Due Hep B, adult 08/23/2021,,01/27/2003,09/09/2002,,12/19/2001 MMR 12/19/2001 PPD Test 11/28/2005,12/19/2004,12/22/2002 ,12/19/2001 Pneumococcal Conjugate PCV 20 11/06/2022 Td (adult), [...] Sign Reading Time Taken Comments Blood Pressure 120/80 08/28/2024 11:21 AM EDT Pulse 104 08/28/2024 11:21 AM EDT Temperature 36.1 ??C (96.9 ??F) 08/28/2024 11:21 AM E DT Respiratory Rate 20 08/28/2024 11:21 AM EDT Oxygen Saturation 99% 08/28/2024 11:21 AM EDT Inhaled Oxygen Concentration - - Weight 157 kg (346 lb) 08/28/2024 11:21 AM EDT Height 177.8 cm (5' 10 ) 08/28/2024 11:21 AM EDT Body Mass Index 49.65 08/28/2024 11:21 AM EDT Plan of Treatment Upcoming Encounters Date Type Department Care Team (Late st Contact Info) Description 09/28/2024 9:45 AM EDT Office Visit [facility] MEDICINE [address] [place] [address] Irais, Edwina, SUPPLY ANALYST [address] [place] [address] 10/29/2024 9:30 AM EDT Medication Management [facility] MEDICINE [address] [place] [address] Rebeka Hester, PharmD [address] [place] [address] Health Maintenance Due Date Last Done Comments CT Colonography 1976 Colonoscopy 1976 Colorectal Cancer Screening 1976 FIT DNA/Cologuard 1976 FIT 1976 FOBT 1976 Sigmoidoscopy 1976 Eye Exam 1986 Alcohol/Substance Use Screening 1988 Family Planning (PISQ) 12/02/1991 Lipid Panel 11/07/2023 11/06/2022, 06/05, 07/14/2021 COVID-19 Vaccine ( season) 2024 06/10/2021, 08/29/2020, 08/07/2020 Influenza Vaccine (#1) 2024 Diabetes: Foot Exam 08/22/2024 08/23/2023, 08/23/2023, 08/23/2023, Additional history exists Diabetes: Hemoglobin A1C 11/28/2024 025, 07/29/2024, 08/23/2023, Additional history exists SDOH Screening 07/15/2025 07/15/2024 Depression Screening 07/29/2025 07/29/2024, 07/29/19 25 Tobacco Screening 08/30/2025 08/30/2024 Zoster Vaccines (1 of 2) 2026 DTaP/Tdap/Td [...] on patient's age to complete this topic Hepatitis A Vaccines Aged Out No long er eligible based on patient's age to complete this topic IPV Vaccines Aged Out No longer eligi ble based on patient's age to complete this topic Meningococcal Vaccine Aged Out No marco ternece eligible based on patient's age to complete this topic RSV under 20 months Aged Out No longe r eligible based on patient's age to complete this topic Rotavirus Vaccines Aged Out No longer eligible based on patient's age to complete this topic Procedures Procedure Name Priority Date/Time Associated Diagnosis Comments POCT GLYCATED HEMOGLOBIN, TOTAL Routine 08/28/2024 11:24 AM EDT Type 2 diabetes mellitus with hyperglycemia, with long-term current use of insulin ([facility]) POCT GLUCOSE Routine 08/28/2024 11:22 AM EDT Type 2 diabetes mellitus with hyperglycemia, with long-term current use of insulin (CMS/[facility]) FUNDUS PHOTOS - OU - BOTH EYES Routine 08/18/2024 9:00 AM EDT Type 2 diabetes mellitus with hyperglycemia, with long-term current use of insulin (CMS/[facility]) CULTURE, URINE, ROUTINE Routine 07/30/2024 12:00 AM EST Type 2 diabetes mellitus with hyperglycemia, with long-term current use of insulin (CMS/[facility]) POCT URINALYSIS DIPSTICK Routine 07/29/2024 11:06 AM EST Type 2 diabetes mellitus with hyperglycemia, with long-term current use of insulin (CMS/HCC) C-REACTIVE PROTEIN Routine 07/29/2024 10 :36 AM [...] to Health Maintenance Results * (ABNORMAL) POCT HGB A1C (08/28/2024 11:24 AM EDT) Only the most recent of2 resultswithin the time period is included. Pathologist [facility] Hemoglobin A1C 15.0(A) 4.0 - 6.0 % QC Media Lot # [id number] Lot# Expiration Date Blood 08/28/2024 11:2 4 AM EDT Result [facility] POINT OF CARE TEST ENTER/EDIT ORDERABLES Final Result * (ABNORMAL) POCT Glucose (08/28/2024 11:22 AM EDT) Only the most recent of2 resultswithin the time period is included. [facility] Glucose Blood, POC 390(A) 60 - 200 mg/dL QC Media Lot # [id number] Lot# Expiration Date Blood Capillary blood specimen / Unknown 08/28/2024 11:22 AM EDT Result [facility] POINT OF CARE TEST ENTER/EDIT ORDERABLES Final Result * Fundus Photos - OU - Both Eyes (08/18/2024 9:00 AM EDT) Narrative Jeanette Hsu, OD - 08/20/2024 4:08 PM EDT Right Eye Progression has no prior data. Disc findings include pallor, thinning of rim (Cupped to rim ). Macula findings include normal observations. Vessel findings include normal observations. Periphery findings include normal observations. Left Eye Progression has no prior data. Disc findings include pallor, thinning of rim (Cupped to rim). Macula findings include (Unable to view). Vessel findings include (Unable to view). Periphery findings include (Unable to view). Notes Assessment and Plan: No diabetic retinopathy (DR) in the right eye. Unable to assess whether there is diabetic retinopathy (DR) in the left eye due to photo quality. Advanced glaucoma in both eyes with pallor. Will refer to resource management specialist NIKOLAY. us Jeanette Hsu OD OPHTH PHOTOGRAPHY Final Resul t * Culture, Urine, Routine (07/30/2024 12:00 AM EST) Urine Urine specimen obtained by clean catch procedure / Unknown 07/30/2024 07/30/2024 2:12 PM EST Comment:UACC Narrative [facility] - 07/31/2024 11:01 AM EST Urine Culture Report Result Urine Culture > 100,000 cfu/ml Urine Culture Mixed bacterial richie characteristic of Urine Culture urogenital contamination. Specimen Source: Urine clean catch [facility] LAB MICROBIOLOGY - GENERAL OR DERABLES Final Result [facility] [address] [place] [phone] * (ABNORMAL) POCT urinalysis dipstick manually resulted [...] Appearance, UA cloudy QC Media Lot # Comment:[id number] Lot# Expiration Date Comment:03/02/2025 Urine 07/29/2024 11:0 6 AM EST [facility] POINT OF CARE TEST ENTER/EDIT ORDERABLES Final Result * (ABNORMAL) CBC auto differential (07/29/2024 10:36 AM EST) White Blood Count 13.5(H) 4.8 - 10.8 X10*3/uL [facility] Red Blood Count 5.79 4.60 - 5.80 X10*6/uL [facility] Hemoglobin 15.6 14.0 - 18.0 g/dl [facility] Hematocrit 47.2 42.0 - 52.0 % [facility] Mean Corpuscular Volume 81.5 80.0 - 98.0 fL [facility] Mean Corpuscular Hemoglobin 26.9(L) 27.0 - 33.0 pg [facility] Mean Corpuscular HGB Conc 33.1 31.0 - 36.0 g/dl [facility] Red Cell Distribution Width 16.9(H) 11.0 - 16.0 % [facility] Platelet Count 431(H) 160 - 400 X10*3/uL [facility] Mean Platelet Volume 11.5 9.4 - 12.4 fL [facility] Neutrophils Percent Auto 77.2(H) 45 - 73 % [facility] Imm Gran Pct Auto 0.4 0.0 - 0.4 % [facility] Lymphocytes Percent Auto 13.7(L) 20 - 40 % [facility] Monocytes Percent Auto 6.6 2 - 11 % [facility] Eosinophils Percent Auto 1.4 0 - 4 % [facility] Basophils Percent Auto 0.7 0 - 2 % [facility] NRBC Pct Auto 0.0 0.0 - 0.2 /100WBC [facility] Neutrophils Absolute Auto 10.4(H) 2.0 - 8.3 x10*3/uL [facility] Imm Gran Abs Auto 0.06(H) 0.00 - 0.03 X10*3/uL [facility] Lymphocytes Absolute Auto 1.9 1.2 - 4.9 X10*3/uL [facility] Monocytes Absolute Auto 0.9 0.1 - 1.2 X10*3/uL [facility] Eosinophils Absolute Auto 0.2 0.0 - 0.4 X10*3/uL [facility] Basophils Absolute Auto 0.1 0.0 - 0.2 X10*3/uL [facility] NRBC Abs Auto 0.000 0.0 - 0.012 X10*3/uL [facility] Blood Venous blood specimen / Unknown 07/29/2024 10:36 AM EST 07/29/2024 2:18 PM EST [facility] SUPPLY ANALYST LAB BLOOD ORDERABLES Final Re sult Performing Organization Address [facility] Co de Phone Number [facility] [address] [place] [address] [phone] * Sed Rate by Modified Lyndseyren (07/29/2024 10:36 AM EST) Pathologist [facility] Erythrocyte Sedimentation Rate 11 0 - 15 MM/HR [facility] Comment:Patients with polycy themia and many hemoglobin abnormalitiesmay have depressed sed rates whereas patients with anemiamay have elevated sed rates. Blood Venous blood specimen / Unknown 07/29/2024 10:36 AM EST 07/29/2024 2:18 PM EST [facility] LAB BLOOD ORDERABLES Final Re sult Performing Organization Address [facility] de Phone Number [facility] [address] [place] [address] [phone] * (ABNORMAL) C-reactive Protein (07/29/2024 10:36 AM EST) [facility] C Reactive Protein 0.56(H) < or = 0.50 mg/dL [facility] Blood Venous blood specimen / Unknown 07/29/2024 10:36 AM EST 07/29/2024 2:18 PM EST [facility] LAB BLOOD ORDERABLES Final Re sult Performing Organization Address [facility] Co de Phone Number [facility] [address] [place] [address] [phone] * (ABNORMAL) Comprehensive Metabolic Panel (07/29/2024 10:36 AM EST) Pathologist [facility] Sodium 130(L) 135 - 145 mmol/L [facility] Potassium 4.2 3.3 - 5.1 mmol/L [facility] Chloride 97 96 - 108 mmol/L [facility] Carbon Dioxide 21(L) 22 - 29 mmol/L [facility] Anion Gap 16 12 - 20 [facility] Urea Nitrogen (BUN) 12 9 - 16 mg/dL [facility] Creatinine, Serum 1.45(H) 0.5 - 1.4 mg/dL [facility] Estimated Glomerular Filt Rate 52 [facility] Comment:Chronic Kidney Disea se: Estimated GFR < 60 mL/min/1.81g6Ieekto Kidney Disease: Estimated GFR < 15 mL/min/1.73m2 Glucose 556(HH) 60 - 115 mg/dL [facility] Comment:Critical value for G LUCOSE Results called to and read backby: LILLIAN Selby Person calling: EDUARD Date: 07/29/24Time:1504 Calcium 9.1 8.4 - 10.2 mg/dL [facility] Bilirubin, Total 0.6 0.0 - 1.0 mg/dL [facility] Aspartate Amino Transferase 31 5 - 37 U/L [facility] Alanine Aminotransferase 42(H) 0 - 40 U/L [facility] Total Protein 7.8 6.5 - 8.0 g/dL [facility] Albumin Level 3.9 3.5 - 5.0 g/dL [facility] Alkaline Phosphatase 106 39 - 117 U/L [facility] Blood Venous blood specimen / Unknown 07/29/2024 10:36 AM EST 07/29/2024 2:18 PM EST [facility] SUPPLY ANALYST LAB BLOOD ORDERABLES Final Re sult [facility] [address] [place] [phone] * (ABNORMAL) Lipid Panel, Standard (11/06/2022 9:59 AM EDT) Cholesterol, Total 108 <200 mg/dL [facility] HDL Cholesterol 36(L) > OR = 40 mg/dL [facility] Triglycerides 110 <150 mg/dL [facility] LDL Cholesterol 52 mg/dL (calc) [facility] Comment: Reference range: <100 Desirable range <100 mg/dL for primary prevention; ?? <70 mg/dL for patients with CHD or diabetic patients with > or = 2 CHD risk factors. LDL-C is now calculated using the Pawel calculation, which is a validated novel method providing better accuracy than the Friedewald equation in the estimation of LDL-C. Thong ONEIL et al. JULES. 2013;310(19): 2669-1321 (http://[employer].EQO/faq/EDY143) Chol/HDLC Ratio 3.0 <5.0 (calc) [facility] Non-HDL Cholesterol 72 <130 mg/dL (calc) [facility] Comment: For patients with diabetes plus 1 major ASCVD risk factor, treating to a non-HDL-C goal of <100 mg/dL (LDL-C of <70 mg/dL) is considered a therapeutic option. Blood Venous blood specimen / Unknown 11/06/2022 9:59 AM EDT 11/06/2022 10:00 AM EDT Narrative [facility] [[email or web address]] - 11/06/2022 11:43 PM EDT FASTING:YES COLLECTION KIT GIVEN TO PATIENT. PATIENT ADVISED TO RETURN. FASTING: YES [facility] LAB BLOOD ORDERABLES Final Re sult [facility] [address] [place] [address] [facility] [address] [place] [phone] * HEPATITIS C AB W/REFL TO HCV RNA, QN, PCR (07/14/2021 10:33 AM EST) HEPATITIS C ANTIBODY NON-REACT LUZMA NON-REACT [facility] INDEX 0.69 <1.00 [facility] Comment: ?? HCV antibody was non-reactive. There is no laboratory ?? evidence of HCV infection. ?? In most cases, no further action is required. However, if recent HCV exposure is suspected, a test for HCV RNA (test code 33020) is suggested. ?? For additional information please refer to http://education.Groupiter/faq/NFT02w0 (This link is being provided for informational/ educational purposes only.) ?? 07/14/2021 10:3 3 AM EST [facility] SUPPLY ANALYST HISTORICAL/NON ORDERABLE LABS Final Result Performing Organization Address [facility] de Phone Number [facility] [address] * HIV 1/2 ANTIGEN/ANTIBODY,FOURTH GENERATION W/RFL (07/14/2021 10:33 AM EST) HIV-1/2 ANTIGEN AND ANTIBODIES, 4TH GENERATION W/ REFLEX NON-REACT LUZMA NON-REACT LUZMA [facility] Comment: HIV-1 antigen and HIV-1/HIV-2 [...] ? For additional information please refer to http://education.Groupiter/faq/BOU105 (This link is being provided for informational/ educational purposes only.) ? The performance of this assay has not been clinically validated in patients less than 2 years old. ?? 07/14/2021 10:3 3 AM EST [facility] LAB BLOOD ORDERABLES Final Re sult Performing Organization Address [facility] de Phone Number [facility] [address] from Last 3 Months or Most Recently Relevant to Health Maintenance Insurance [place] [address] C3 Care Teams Piercing Artist Relationship Specialty Start Date End Date Edwina Braxton FNP [address] [place] [address] PCP - General Family Medicine 03/01/21
--- OUTSIDE RECORDS SUMMARY | 2024-09-24 11:26 | XMS_ITS | Encounter Summary ---
Author Organization [employer] Address [address] [place] [address] 7 [place] [address] Care Team Providers Care Cuff Folder Name Role Phone Edwina Braxton [facility] Primary Care Provider [phone] Encounter Details Date Type Department Care Team ([facility] Contact Info) Description 12/05/2022 Abstract [facility] [address] [place] [address] [phone] Edwina Braxton [address] [phone] Social History Tobacco Use Types Packs/Day Years [...] Upcoming Encounters Date Type Department Care Team ([facility] Contact Info) Description 09/28/2024 9:45 AM EDT Office Visit [facility] [address] [place] [address] [phone] Edwina Braxton [facility] [address] [place] [address] 10/29/2024 9:30 AM EDT Medication Management [facility] 230 [place], [place] [phone] Rebeka Hester, Wendy [address] [place] [address] documented as of this encounter Visit Diagnoses Not on filedocumented in this encounter Additional Health Concerns Assessment Noted Time PHQ-9 Depression Total Score: 0 06/28/19 23 11:27 AM EST documented as of this encounter Care Teams Cuff Folder Relationship Specialty Start Date End Date Edwina Braxton FNP [address] [place] [id number] PCP - General Family Medicine 03/01/21 documented as of this encounter
--- OUTSIDE RECORDS SUMMARY | 2024-09-24 11:26 | XMS_ITS | Encounter Summary ---
Author Organization [employer] Address [address] [place] [address] 7 [place] [address] Care Team Providers Care Optical Manufacturing Technician Name Role Phone Edwina Braxton [facility] Primary Care Provider [phone] Encounter Details Date Type Department Care Team ([facility] Contact Info) Description 12/05/2022 Abstract [facility] [address] [place] [address] [phone] Edwina Braxton [address] [phone] Social History Tobacco Use Types Packs/Day Years [...] Upcoming Encounters Date Type Department Care Team ([facility] Contact Info) Description 09/28/2024 9:45 AM EDT Office Visit [facility] [address] [place] [address] [phone] Edwina Braxton [facility] [address] [place] [address] 10/29/2024 9:30 AM EDT Medication Management [facility] 230 [place], [place] [phone] Rebeka Hester, Wendy [address] [place] [address] documented as of this encounter Visit Diagnoses Not on filedocumented in this encounter Additional Health Concerns Assessment Noted Time PHQ-9 Depression Total Score: 0 06/28/19 23 11:27 AM EST documented as of this encounter Care Teams Optical Manufacturing Technician Relationship Specialty Start Date End Date Edwina Braxton FNP [address] [place] [id number] PCP - General Family Medicine 03/01/21 documented as of this encounter
--- OUTSIDE RECORDS SUMMARY | 2024-09-24 11:26 | XMS_ITS | Encounter Summary ---
Author Organization [employer] Address [address] [place] [address] 7 [place] [address] Care Team Providers Care Service Dismantler Name Role Phone Edwina Braxton [facility] Primary Care Provider [phone] Encounter Details Date Type Department Care Team ([facility] Contact Info) Description 12/05/2022 Abstract [facility] [address] [place] [address] [phone] Edwina Braxton [address] [phone] Social History Tobacco Use Types Packs/Day Years [...] Upcoming Encounters Date Type Department Care Team ([facility] Contact Info) Description 09/28/2024 9:45 AM EDT Office Visit [facility] [address] [place] [address] [phone] Edwina Braxton [facility] 230 [place] [address] 10/29/2024 9:30 AM EDT Medication Management [facility] [address] [place], [place] [phone] Rebeka Hester, Wendy [address] [place] [address] documented as of this encounter Visit Diagnoses Not on filedocumented in this encounter Additional Health Concerns Assessment Noted Time PHQ-9 Depression Total Score: 0 06/28/19 23 11:27 AM EST documented as of this encounter Care Teams Service Dismantler Relationship Specialty Start Date End Date Edwina Braxton FNP [address] [place] [address] PCP - General Family Medicine 03/01/21 documented as of this encounter
--- OUTSIDE RECORDS SUMMARY | 2024-09-24 11:26 | XMS_ITS | Encounter Summary ---
Author Organization [employer] Address [address] [place] [address] 7 [place] [address] Care Team Providers Care Pharmaceutical Compounding Supervisor Name Role Phone [place] [facility] Primary Care Provider [phone] Reason for Visit * Reason Onset Date Comments ER Follow-up 03/27/2023 Encounter Details Date Type Department Care Team ([facility] st Contact Info) Description 03/27/2023 Telephone [facility] 230 [place], [place] [phone] [facility] 230 [place] [address] ER Follow-up Social History Tobacco Use Types [...] nurses for f/u. Please contact pt at [phone] documented in this encounter Plan of Treatment Upcoming Encounters Date Type Department Care Team (Late st Contact Info) Description 09/28/2024 9:45 AM EDT Office Visit [facility] [address] [place] [phone] [place], [employer]OOK [address] [place] [address] 10/29/2024 9:30 AM EDT Medication Management [facility] [address] [place] [address] Rebeka Hester, Wendy 230 [place] [address] documented as of this encounter Visit Diagnoses Not on filedocumented in this encounter Additional Health Concerns Assessment Noted Time PHQ-9 Depression Total Score: 0 03/18/20 10:55 AM EDT documented as of this encounter Care Teams Pharmaceutical Compounding Supervisor Relationship Specialty Start Date End Date Edwina Braxton FNP [address] [place] [address] PCP - General Family Medicine 03/01/21 documented as of this encounter
--- OUTSIDE RECORDS SUMMARY | 2024-09-24 11:26 | XMS_ITS | Encounter Summary ---
Author Organization [employer] Address [address] [place] [address] 7 [place] [address] Care Team Providers Care Leather Stretcher Name Role Phone Edwina Braxton [facility] Primary Care Provider [phone] Encounter Details Date Type Department Care Team ([facility] Contact Info) Description 12/05/2022 Abstract [facility] [address] [place] [address] [phone] Edwina Braxton [address] [phone] Social History Tobacco Use Types Packs/Day Years [...] Upcoming Encounters Date Type Department Care Team ([facility] Contact Info) Description 09/28/2024 9:45 AM EDT Office Visit [facility] [address] [place] [address] [phone] Edwina Braxton [facility] [address] [place] [address] 10/29/2024 9:30 AM EDT Medication Management [facility] 230 [place], [place] [phone] Rebeka Hester, Wendy [address] [place] [address] documented as of this encounter Visit Diagnoses Not on filedocumented in this encounter Additional Health Concerns Assessment Noted Time PHQ-9 Depression Total Score: 0 06/28/19 23 11:27 AM EST documented as of this encounter Care Teams Leather Stretcher Relationship Specialty Start Date End Date Edwina Braxton FNP [address] [place] [phone] PCP - General Family Medicine 03/01/21 documented as of this encounter
[2024-09-24 11:28] LABS: Basophils Absolute Auto 0.1 X10*3/uL (0.0-0.2); Basophils Percent Auto 0.8 % (0-2); Eosinophils Absolute Auto 0.3 X10*3/uL (0.0-0.4); Eosinophils Percent Auto 2.6 % (0-4); Hematocrit 46.2 % (42.0-52.0); Hemoglobin 15.6 g/dl (14.0-18.0); Imm Gran Abs Auto 0.04 X10*3/uL (0.00-0.03); Imm Gran Pct Auto 0.4 % (0.0-0.4); Lymphocytes Absolute Auto 2.3 X10*3/uL (1.2-4.9); Lymphocytes Percent Auto 24.8 % (20-40); Mean Corpuscular HGB Conc 33.8 g/dl (31.0-36.0); Mean Corpuscular Hemoglobin 27.6 pg (27.0-33.0); Mean Corpuscular Volume 81.6 fL (80.0-98.0); Mean Platelet Volume 10.8 fL (9.4-12.4); Monocytes Absolute Auto 0.8 X10*3/uL (0.1-1.2); Monocytes Percent Auto 8.1 % (2-11); Neutrophils Percent Auto 63.3 % (45-73); Platelet Count 333 X10*3/uL (160-400); Red Blood Count 5.66 X10*6/uL (4.60-5.80); Red Cell Distribution Width 15.2 % (11.0-16.0); White Blood Count 9.4 X10*3/uL (4.8-10.8)
[2024-09-24 11:39] LABS: Appearance Urine Clear; Color Urine Yellow; Glucose Urine UA >=1000 mg/dL (Negative); Leukocyte Esterase Urine Negative (Negative); Nitrite Urine Negative (Negative); Specific Gravity - Urine >= 1.030 (1.005-1.025); UMIC TRIGGER UACC YES; Urine Blood Negative (Negative); Urine Ketones Trace mg/dL (Negative); Urine Protein Negative (Neg-Trace)
[2024-09-24 11:43] LABS: Bacteria Urine None Seen (None Seen); Hyaline Casts Urine 0-2 /LPF (0-2); RBC Urine 0-2 /HPF (0-2); Squamous Epithelial Cell Urine 0-2 /HPF (0-2); WBC Urine 0-5 /HPF (0-5)
[2024-09-24 11:57] LABS: Anion Gap 15 (12-20); Blood Urea Nitrogen 9 mg/dL (9-16); Calcium 9.5 mg/dL (8.4-10.2); Carbon Dioxide 26 mmol/L (22-29); Chloride 95 mmol/L (96-108); Cholesterol 105 mg/dL (<200); Estimated Glomerular Filt Rate > 60; Glucose Random 499 mg/dL (60-115); HDL Cholesterol 36 mg/dL (>40); LDL Cholesterol Calculated 53 mg/dL (<100); Potassium 3.8 mmol/L (3.3-5.1); Sodium 132 mmol/L (135-145); Triglycerides 80 mg/dL (<150)
[2024-09-24 12:26] LABS: Creatinine Urine 43.91 mg/dL; Microalbum/Creatinine Ratio Ur 29.6 ug/mg cr (<30)
== END 2024-09-24 10:02 | disposition home or self-care (01) ==
LOC: HO.HHCL 10:01
PROVIDERS: Visit Provider Registered Nurse
DX: E11.65 Type 2 diabetes mellitus with hyperglycemia (principal); R31.9 Hematuria, unspecified
CPT/HCPCS: 36415; 80048; 80061; 81001; 82043; 82570; 85025

== ENCOUNTER 2024-11-03 11:55 | Outpatient (REF) | payer MEDICAID, SELFPAY ==
--- OUTSIDE RECORDS SUMMARY | 2024-11-03 13:24 | XMS_ITS | Encounter Summary ---
Author Organization [employer] Address [address] [place] [address] [address] [place] [address] Care Team Providers Care Veneer Jointer Returner Name Role Phone [facility] Primary Care Provider [phone] Rebeka Hester PharmD Unavailable [phone] Reason for Visit * Reason Onset Date Comments Recieved Call 08/30/2023 Encounter Details Date Type Department Care Team ([facility] st Contact Info) Description 08/30/2023 Telephone [facility] 230 [place], [place] [phone] [facility] [address] [place], [place] [phone] Recieved Call Social History Tobacco Use Types [...] pt stating received a call this morning, database report writer didn't see any notations. documented in this encounter Plan of Treatment Upcoming Encounters Date Type Department Care Team (Late st Contact Info) Description 12/28/2024 9:45 AM EDT Office Visit [facility] [address] [place] [address] Edwina Braxton FNP [address] [place] [address] documented as of this encounter Visit Diagnoses Not on filedocumented in this encounter Additional Health Concerns Assessment Noted Time PHQ-9 Depression Total Score: 0 08/23/19 24 9:11 AM EDT documented as of this encounter Care Teams Veneer Jointer Returner Relationship Specialty Start Date End Date Edwina Braxton FNP [address] [place] [address] PCP - General Family Medicine 03/01/21 Rebeka Hester, PriyankD [address] [place] [phone] Pharmacist Internal Medicine 09/24/24 documented as of this encounter
[2024-11-03 14:23] LABS: Alanine Aminotransferase 28 U/L (0-40); Alkaline Phosphatase 98 U/L (39-117); Anion Gap 13 (12-20); Aspartate Amino Transferase 20 U/L (5-37); Bilirubin Total 0.6 mg/dL (0.0-1.0); Blood Urea Nitrogen 11 mg/dL (9-16); Calcium 9.2 mg/dL (8.4-10.2); Carbon Dioxide 27 mmol/L (22-29); Chloride 99 mmol/L (96-108); Estimated Glomerular Filt Rate > 60; Glucose Random 347 mg/dL (60-115); Potassium 3.6 mmol/L (3.3-5.1); Sodium 135 mmol/L (135-145); Total Protein 7.3 g/dL (6.5-8.0)
== END 2024-11-03 11:56 | disposition home or self-care (01) ==
LOC: HO.HHCL 11:55
PROVIDERS: Visit Provider Registered Nurse
DX: E11.65 Type 2 diabetes mellitus with hyperglycemia (principal); Z79.4 Long term (current) use of insulin
CPT/HCPCS: 36415; 80053

== ENCOUNTER 2025-03-10 08:49 | Outpatient (AMB) | payer MEDICAID, SELFPAY ==
[2025-03-10 08:56] VITALS: BP 122/70; PULSE 92; O2SAT 95; BMI 50.7
--- NOTE | 2025-03-10 08:56 | A.OFFVIS_ITS ---
Vital Signs 03/10/25 08:56 Height 5 ft 10 in Weight 353 lb 2.888 oz BMI 50.7 BP 122/70 Blood Pressure Location Rt brachial Position Sitting Pulse 92 Pulse Source Pulse Oximeter Pulse Oximetry (%) 95 Oxygen Delivery Method Room Air Intake Visit Reasons: T2DM Intake Note: NEW Patient presents today to establish treatment for Type 2 Diabetes Mellitus: Last Diabetic eye exam was on: DUE Last Podiatry exam was on: Patient does not see a Agriculture Instructor Most recent HbA1c: 15.0%, 12/28/2024 Random Glucose:? ? ?481 ? ? ?mg/dL Field Cane Scaler Required: No Accompanied by: Self / Same As Patient Allergies Penicillins Allergy (Mild, Verified 03/10/25 09:00) Hives HPI Comments Details: 49 years old male with past medical history of type 2 diabetes, hypertension, hyperlipidemia, CVA, CKD, seen in the office for evaluation and management of type 2 diabetes. The patient was diagnosed with Type 2 Diabetes Mellitus about a year ago. Since then, they have struggled with maintaining controlled blood sugar levels, which have been consistently high. 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 Current medications: Tresiba at a dose of 128 units daily, which was started approximately three weeks ago; Lispro, at a dosage of 10 units before their two largest meals, typically lunch and dinner; Mounjaro, increased to 15 mg every Saturday about three weeks ago; Metformin at 500 mg daily, with higher doses causing stomach upset; and Pioglitazone at 30 mg daily. Previously, the patient was on Lantus. Weight has fluctuated, with a recent gain noted. There's a history of two strokes, the first in September 2019 and a smaller one in 2021. The patient reports peripheral neuropathy on the right side, confirmed by a nerve conduction test. The patient has not been diagnosed with diabetic retinopathy. Occasionally, the patient experiences edema in the left leg, potentially linked to pioglitazone use. The patient attempts to maintain a healthy diet but struggles with late-night snacking and an irregular schedule. They report snoring and suspect sleep apnea but have avoided a sleep study due to apprehension about CPAP machine use. Physical exam: General: Well appearing. Morbidly obese, NAD. Not Cushingoid or Acromegalic Neck/Thyroid: Thyroid not palpable Eyes: No conjunctival injection, not lid lag or proptosis CV: RRR, no murmur. No edema. Resp:Lungs clear to auscultation bilaterally Abdomen: Soft, nontender. nondistended Extremities/Neuro: No weakness or tremor of outstretched hands Diabetic Foot Exam: Preserved sensation to monofilament exam in both lower extremities Labs: Laboratory Tests 03/10/25 03/10/25 09:06 09:14 Glucose (Clinic) 481 H* Hgb A1c (Clinic) 13.4 H 09/24/24 Component Value Reference Range Creatinine, Urine 43.91 mg/dL Microalbumin Urine 13.0 mg/L Microalbumin Creatinine Ratio Ur 29.6 <30 ug/mg cr Triglycerides 80 <150 mg/dL ? 55 Desirable Triglyceride: less than 150 mg/dL Borderline High Triglyceride: 150- 199 mg/dL High Triglyceride: 200-499 mg/dL Very High Triglyceride: greater than or equal to 500 mg/dL Cholesterol 105 <200 mg/dL ? 55 Desirable Cholesterol: less than 200 mg/dL Borderline High Cholesterol: 200-239 mg/dL High Cholesterol: greater than 239 mg/dL LDL Cholesterol Calculated 63 <100 mg/dL ? 55 Desirable LDL: less than 100 mg/dL Near Optimal/Above Optimal LDL: 100-129 mg/dL Borderline High LDL: 130-159 mg/dL High LDL: 160-189 mg/dL HDL Cholesterol 36 >40 mg/dL L ? 55 Hemoglobin A1C 15.0 4.0 - 6.0 % Sodium 135 135 - 145 mmol/L Potassium 3.6 3.5 - 5.1 mmol/L Chloride 96 96 - 108 mmol/L Carbon Dioxide 27 22 - 29 mmol/L Anion Gap 13 12 - 20 w Urea Nitrogen (BUN) 11 9 - 16 mg/dL Creatinine, Serum 0.90 0.5 - 1.4 mg/dL Estimated Glomerular Filtration Rate >60 >60 Of note, patient brought his glucometer, but we were unable to download the information and upon review of the glucometer we noted scarce data reading ?high ?. Patient is currently wearing a CGM that he started 2 days ago. [facility] Medical History CKD (chronic kidney disease) CVA (cerebral vascular accident) Cardioembolic stroke HTN (hypertension) HLD (hyperlipidemia) T2DM (type 2 diabetes mellitus) Surgical History No pertinent past surgical history Family History Father No problems noted. Mother Medical history unknown Social History Alcohol intake: current Patient Tobacco Use Status: Current everyday Tobacco user Physical Exam Vital Signs: Last Vital Signs Pulse 92 03/10/25 08:56 BP 122/70 03/10/25 08:56 Pulse Ox 95 03/10/25 08:56 Oxygen Delivery Method Room Air 03/10/25 08:56 BMI result Body Mass Index 50.7 Results AMB Hemoglobin A1c AMB Hemoglobin A1c 13.4 % Last Edit by Elana Flynn CMA on 03/10/25 09:21 Results Reviewed Results Reviewed: Laboratory Last Values Glucose (Clinic) 481 mg/dL (60-115) H* 03/10/25 09:06 Hgb A1c (Clinic) 13.4 % (4.0-6.0) H 03/10/25 09:14 Assessment & Plan Assessment & Plan (1) Type 2 diabetes mellitus associated with morbid obesity: Code(s): E11.69 - Type 2 diabetes mellitus with other specified complication; E66.01 - Morbid (severe) obesity due to excess calories Category: Medical (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 Morbid obesity. This patients poorly control type 2 diabetes with A1c 13.4 %, persistent hyperglycemia and inability to lose weight despite being multiple diabetes medications including max dose of Mounjaro is concerning for severe insulin resistance in the setting of morbid obesity. The possibility of other endocrine diseases like hypothyroidism or Cj syndrome complicating the diabetes control can not be completely ruled out. Although medication noncompliance is always the possibility, at this point I do not suspect that this is what is happening. Plan Extensively discussed with patient the importance of diet, exercise and medication adherence in diabetes control Review with patient complications of diabetes including eye disease, kidney disease, CVA, CAD, PVD etc. Increase Toujeo to 140 units daily Continue Metformin 500 mg Daily Continue Actos 30 mg daily Use Lispro based on slidind scale Explore alternatives for sleep apnea management and encourage sleep study Discuss potential referral for bariatric surgery evaluation if diabetes control remains poor despite escalating insulin doses and secondary causes of insulin resistance like [place]'s or hypothyroidism I ruled out. Orders: Orders AMB Hemoglobin A1c Today E11.9 - Type 2 diabetes mellitus without complications Cortisol Random Today E11.69 - Type 2 diabetes mellitus with other specified complication, E24.9 - Cj's syndrome, unspecified, E66.01 - Morbid (severe) obesity due to excess calories TSH reflex Free T4 Today E11.69 - Type 2 diabetes mellitus with other specified complication, E66.01 - Morbid (severe) obesity due to excess calories Referrals Bariatric Surgery Referral E11.69 - Type 2 diabetes mellitus with other specified complication, E66.01 - Morbid (severe) obesity due to excess calories Medications: New dexamethasone 1 mg PO ONCE 1 tab 0RF Patient Instructions: Increase Toujeo to 140 units daily Continue Metformin 500 mg Daily Continue Actos 30 mg daily Use Lispro based on slidind scale below Insulin Dose (units) ? Take 10?15 minutes prior to the meal Blood Sugar Level (mg/dl) Small Meal?(low carb <30g like salad, eggs with meat) Normal Meal?(30?60g like sandwich, chips, meat, small starch portion) Large Meal?(>60g like pizza, lasagna, Israeli food, meal + dessert) <100 4 6 8 101?150 8 10 12 151?200 12 14 16 201?250 16 18 20 251?300 20 22 24 301?350 24 26 28 351?400 28 30 32 >400 32 34 36 We will test for [place]'s Syndrome, see intructions below: Dexamethasone Suppression Test Instructions Purpose: To assess adrenal gland function and screen for Cj?s syndrome. Preparation: * No special dietary restrictions are required. * Continue usual medications unless otherwise specified, but note that certain drugs (e.g., phenytoin, phenobarbital, rifampin, oral estrogens) may interfere with results. * Avoid alcohol on the day of the test. Instructions: * Obtain 1 mg dexamethasone tablet?from the pharmacy. * At 11:00 PM?(23:00) on the night before your scheduled blood test, take the entire 1 mg dexamethasone tablet by mouth with a small amount of water. * Do not eat or drink anything except water?after midnight until your blood is drawn. * The next morning, between 8:00 AM and 9:00 AM, have your blood drawn for serum cortisol measurement. Important Notes: * Take the dexamethasone exactly at 11:00 PM. * If you miss the dose or vomit after taking it, notify the ordering provider as the test may need to be rescheduled. * Bring a list of all current medications to your appointment. DASH Diet (Dietary Approaches to Stop Hypertension) Purpose: The DASH diet is designed to help lower blood pressure and improve heart health. Rosario Principles: * Emphasize fruits, vegetables, and low-fat dairy products. * Include whole grains, fish, poultry, beans, seeds, and nuts. * Limit sodium, sweets, sugary beverages, and red meats. Daily Servings Guide: Food Group Servings per Day Examples Grains 6?8 Whole wheat bread, brown rice, oatme al Vegetables 4?5 Broccoli, carrots, leafy greens Fruits 4?5 Apples, oranges, bananas Low-fat Dairy 2?3 Skim milk, low-fat yogurt, cheese Lean Meats/Fish <= Skinless chicken, fish, lean beef Nuts/Seeds/Legumes 4?5 per week Almonds, beans, lentils, blackman nflower seeds Fats/Oils 2?3 Redfield oil, canola oil, soft margarin e Sweets <= per week Sorbet, jelly, maple syrup Sodium Recommendations: * Standard DASH: up to 2,300 mg sodium/day * Lower sodium option: up to 1,500 mg sodium/day Tips: * Choose fresh or frozen vegetables and fruits. * Use herbs and spices instead of salt. * Read food labels for sodium content. * Limit processed and fast foods. Mediterranean Diet Purpose: The Mediterranean diet is associated with reduced risk of heart disease, stroke, and metabolic syndrome. Rosario Principles: * Emphasize plant-based foods: fruits, vegetables, whole grains, legumes, and nuts. * Use olive oil as the main source of fat. * Eat fish and seafood at least twice a week. * Include moderate amounts of dairy (cheese, yogurt), poultry, and eggs. * Limit red meat and sweets. * Enjoy meals with family and friends; be physically active. Food Choices: Food Group Frequency/Amount Examples Vegetables At every meal Tomatoes, spinach, eggplant, peppers Fruits Daily Berries, oranges, grapes, melons Whole Grains Daily Brown rice, whole wheat pasta, barley Legumes/Nuts Daily Chickpeas, lentils, almonds, walnuts Redfield Oil Main added fat Use for cooking and dressings Fish/Seafood 2+ times per week [place], sardines, tuna , shrimp Poultry/Eggs Moderate amounts Chicken, turkey, eggs Dairy Moderate amounts Cheese, yogurt Red Meat Rarely Lean beef, wade (occasional) Sweets Rarely Pastries, candy, sugar-sweetened drinks Wine (optional) In moderation, with meals 1 glass/day for women, 1?2 for men (if appropriate) Tips: * Snack on nuts or fruit instead of processed snacks. * Use herbs and spices instead of salt. * Prepare meals from scratch when possible. * Drink water as your main beverage. General Advice: * Both diets encourage a high intake of fruits, vegetables, and whole grains. * Limit processed foods, sugary drinks, and excess salt. * Practice portion control and regular physical activity. Coding Level of Care Code New Pt Level 5 (00911) Complex EM visit Add On G2211 Diagnoses Type 2 diabetes mellitus associated with morbid obesity E11.69; E66.01 Cushings syndrome E24.9 Time Spent (min) 70 Comment Time spent on review of previous records, history, exam/plan and patient education.
[2025-03-10 09:12] LABS: Glucose, Whole Blood 481 mg/dL (60-115)
== END 2025-03-10 09:56 | disposition home or self-care (01) ==
LOC: HO.ENCR 08:50
PROVIDERS: PCP Registered Nurse; Visit Provider Student in an Organized Health Care Education/Training Program
DX: E11.69 Type 2 diabetes mellitus with other specified complication (principal); Z79.4 Long term (current) use of insulin; E66.01 Morbid (severe) obesity due to excess calories; Z68.43 Body mass index [BMI] 50.0-59.9, adult; E24.9 Cushing's syndrome, unspecified
CPT/HCPCS: 99205

== ENCOUNTER → 2025-03-10 08:49 | Outpatient (BNVA) | payer MEDICAID, SELFPAY | PROVIDERS: PCP Registered Nurse; Visit Provider Student in an Organized Health Care Education/Training Program | DX: E11.9 Type 2 diabetes mellitus without complications (principal); E66.01 Morbid (severe) obesity due to excess calories; E24.9 Cushing's syndrome, unspecified | CPT/HCPCS: 82947; 83036; 99202 ==

== ENCOUNTER 2025-03-17 06:45 | Outpatient (REF) | payer MEDICAID, SELFPAY ==
--- OUTSIDE RECORDS SUMMARY | 2025-03-17 06:48 | XMS_ITS | Encounter Summary ---
Author Organization [employer] Address [address] [facility] 7t [place] [address] Care Team Providers Care Fiber Optic Assembler Name Role Phone [facility] Primary Care Provider [phone] Rebeka Hester PharmD Unavailable [phone] Reason for Visit * Reason Comments Med Refill Encounter Details Date Type Department Care Team ([facility] Contact Info) Description 04/24/2023 Refill [facility] CHC MED & PEDS [address] [place] [address] Ines Hui MD 230 [place] [address] Type 2 diabetes mellitus with hyperglycemia, without long-term current use of insulin ([facility]) Social History Tobacco Use Types Packs/Day Years [...] Care Team (Late st Contact Info) Description 05/10/2025 10:30 AM EST Office Visit [facility] MEDICINE 230 [place] [address] [facility] 230 [place] [address] documented as of this encounter Visit Diagnoses Diagnosis Type 2 diabetes mellitus with hyperglycemia, without long-term current use of insulin (HCC) documented in this encounter Additional Health Concerns Assessment Noted Time PHQ-9 Depression Total Score: 0 03/18/20 23 10:55 AM EDT documented as of this encounter Care Teams Fiber Optic Assembler Relationship Specialty Start Date End Date [facility] [address] [place] [address] PCP - General Family Medicine 03/01/21 Rebeka Hester PharmD [address] [place] [address] Pharmacist Internal Medicine 09/24/24 03/02/25 documented as of this encounter
--- OUTSIDE RECORDS SUMMARY | 2025-03-17 06:48 | XMS_ITS | Encounter Summary ---
Author Organization [employer] Address [address] [place] [address] 7t [place] [address] Care Team Providers Care Bark Spudder Name Role Phone [place] [facility] Primary Care Provider [phone] Rebeka Hester PharmD Unavailable [phone] Reason for Visit * Reason Onset Date Comments ER Follow-up 03/27/2023 Encounter Details Date Type Department Care Team ([facility] st Contact Info) Description 03/27/2023 Telephone [facility] MEDICINE 230 [place], [place] [phone] [place] [facility] 230 [place], [place] [phone] ER Follow-up Social History Tobacco Use Types [...] an ED visit. Pt was admitted at [facility] on 03/21 for a stroke and discharged on 03/23. Pt does not know exact date, states it was a blur. Was advised will forward to team nurses for f/u. Please contact pt at [phone] documented in this encounter Plan of Treatment Upcoming Encounters Date Type Department Care Team (Late st Contact Info) Description 05/10/2025 10:30 AM EST Office Visit [facility] MEDICINE 230 [place] [address] Edwina Braxton FNP 230 [place] [address] documented as of this encounter Visit Diagnoses Not on filedocumented in this encounter Additional Health Concerns Assessment Noted Time PHQ-9 Depression Total Score: 0 03/18/20 10:55 AM EDT documented as of this encounter Care Teams Bark Spudder Relationship Specialty Start Date End Date Edwina Braxton FNP 230 [place] [address] PCP - General Family Medicine 03/01/21 Rebeka Hester, Wendy [address] [place] [address] Pharmacist Internal Medicine 09/24/24 03/02/25 documented as of this encounter
--- OUTSIDE RECORDS SUMMARY | 2025-03-17 06:48 | XMS_ITS | Encounter Summary ---
Author Organization [employer] Address [address] [place] [address] 7 [place] [address] Care Team Providers Care Film Developing Machine Operator Name Role Phone [facility] Primary Care Provider [phone] Rebeka Hester PharmD Unavailable [phone] Reason for Visit * Reason Onset Date Comments Med Change Request Appointment Request 06/13/2023 Encounter Details Date Type Department Care Team ([facility] st Contact Info) Description 06/13/2023 Refill [facility] 230 [place], [place] [phone] [facility] 230 [place], [place] [phone] History of stroke Social History Tobacco Use [...] Description 05/10/2025 10:30 AM EST Office Visit [facility] MEDICINE [address] [place] [address] [facility] 230 [place] [address] documented as of this encounter Visit Diagnoses Diagnosis History of stroke Transient ischemic attack (TIA), and cerebral infarction without residual deficits documented in this encounter Additional Health Concerns Assessment Noted Time PHQ-9 Depression Total Score: 0 05/20/20 23 10:46 AM EST documented as of this encounter Care Teams Film Developing Machine Operator Relationship Specialty Start Date End Date [facility] [address] [place] [address] PCP - General Family Medicine 03/01/21 Rebeka Hester PharmD 230 [place] [address] Pharmacist Internal Medicine 09/24/24 03/02/25 documented as of this encounter
--- OUTSIDE RECORDS SUMMARY | 2025-03-17 06:48 | XMS_ITS | Clinical Summary ---
Author Organization [facility] Address [address] [address] Phone Care Team Providers Care Patient Support Representative Name Role Phone Irais Edwina Primary Care Provider [phone] Allergies Active Allergy Reactions Criticality Noted Date [...] Hemoglobin A1C 11/23/2023 08/23/2023 Influenza Vaccine (#1) 2025 Pneumococcal Vaccine: Peds ( 0 to 5 Years) and At-Risk Patients (6 to 49 Years) Completed 11/06/2022 Insurance [facility] Medicaid [place] Care Teams Patient Support Representative Relationship Specialty Start Date End Date [facility] 230 [place] [address] PCP - General 07/03/22
--- OUTSIDE RECORDS SUMMARY | 2025-03-17 06:48 | XMS_ITS | Encounter Summary ---
Author Organization [employer] Address [address] [place] [address] 7 [place] [address] Care Team Providers Care Reading Interventionist Name Role Phone [place] [facility] Primary Care Provider Rebeka Hester PharmD Unavailable [phone] Encounter Details Date Type Department Care Team ([facility] Contact Info) Description 12/05/[address] [phone] [place] [address] [address] Social History Tobacco Use Types Packs/Day Years [...] Upcoming Encounters Date Type Department Care Team ([facility] Contact Info) Description 05/10/2025 10:30 AM EST Office Visit [address] [phone] Edwina Braxton FNP 230 [place] [address] documented as of this encounter Visit Diagnoses Not on filedocumented in this encounter Additional Health Concerns Assessment Noted Time PHQ-9 Depression Total Score: 0 06/28/19 23 11:27 AM EST documented as of this encounter Care Teams Reading Interventionist Relationship Specialty Start Date End Date Edwina Braxton FNP [address] [place] [address] PCP - General Family Medicine 03/01/21 Rebeka Hester PharmD [address] [place] [address] Pharmacist Internal Medicine 09/24/24 03/02/25 documented as of this encounter
--- OUTSIDE RECORDS SUMMARY | 2025-03-17 06:48 | XMS_ITS | Encounter Summary ---
Author Organization [employer] Address [address] [place] [address] 7t [place] [address] Care Team Providers Care Resident Care Director Name Role Phone [facility] Primary Care Provider [phone] Rebeka Hester PharmD Unavailable [phone] Reason for Visit * Reason Onset Date Comments Med Refill 09/02/2023 Encounter Details Date Type Department Care Team (Late st Contact Info) Description 09/02/2023 Refill [facility] MEDICINE 230 [place], [place] [phone] [facility] 230 [place], [place] [phone] Type 2 diabetes mellitus with hyperglycemia, without long-term current use of insulin ([facility]) Social History Tobacco Use Types Packs/Day Years [...] Description 05/10/2025 10:30 AM EST Office Visit [facility] MEDICINE 230 [place] [address] Edwina Braxton [facility] 230 [place] [address] documented as of this encounter Visit Diagnoses Diagnosis Type 2 diabetes mellitus with hyperglycemia, without long-term current use of insulin (HCC) documented in this encounter Additional Health Concerns Assessment Noted Time PHQ-9 Depression Total Score: 0 08/23/19 24 9:11 AM EDT documented as of this encounter Care Teams Resident Care Director Relationship Specialty Start Date End Date Edwina Braxton FNP 230 [place] [address] PCP - General Family Medicine 03/01/21 Rebeka Hester, Wendy [address] [place] [address] Pharmacist Internal Medicine 09/24/24 03/02/25 documented as of this encounter
--- OUTSIDE RECORDS SUMMARY | 2025-03-17 06:48 | XMS_ITS | Encounter Summary ---
Author Organization [employer] Address [address] [place] [address] 7t [place] [address] Care Team Providers Care Welt Insole Channeler Name Role Phone [facility] Primary Care Provider [phone] Reason for Visit * Reason Onset Date Comments Dec recall 03/15/2025 Encounter Details Date Type Department Care Team ([facility] st Contact Info) Description 03/15/2025 Telephone [facility] MEDICINE 230 [place], [place] [phone] [facility] 230 [place] [address] Dec recall Social History Tobacco Use Types Packs/Day Years [...] Date Recorded Patient Health Questionnaire-9 Score 0 02/08/2025 Patient Health Questionnaire-9 Score 0 02/08/2025 Last PHQ-9: Questionnaire Data Not on file 0 02/08/2025 Housing Stability Answer Date Recorded What is [...] Date Recorded Patient Health Questionnaire-2 Score 0 02/08/2025 Internet Access Answer Date Recorded Internet Access [...] encounter Miscellaneous Notes * Telephone Encounter - Armida Perez [place] - 03/15/2025 2:59 PM EDT Telephone call to patient to schedule a recall appointment. No answer, Left voicemail to return call to clinic.. Recall letter sent. Visit type: Office visit Appointment notes: HTN and DM Month due: May With: Schuyler Please schedule appointment above if patient returns call documented in this encounter Plan of Treatment Upcoming Encounters Date Type Department Care Team (Late st Contact Info) Description 05/10/2025 10:30 AM EST Office Visit [facility] MEDICINE 230 [place] [address] SchuylerEdwina FNP 230 [place] [address] documented as of this encounter Visit Diagnoses Not on filedocumented in this encounter Additional Health Concerns Assessment Noted Time PHQ-9 Depression Total Score: 0 02/09/20 25 10:53 AM EDT documented as of this encounter Care Teams Welt Insole Channeler Relationship Specialty Start Date End Date Schuyler CASSANDRA Bland [address] [place] [address] PCP - General Family Medicine 03/01/21 documented as of this encounter
--- OUTSIDE RECORDS SUMMARY | 2025-03-17 06:48 | XMS_ITS | Encounter Summary ---
Author Organization [facility] Address [address] [place] [address] Phone Care Team Providers Care Press Tool Maker Name Role Phone [facility] Primary Care Provider [phone] Encounter Details Date Type Department Care Team (Late st Contact Info) Description 12/26/2021 Documentation Only [facility], [address] [place] [address] [facility] 230 [place] [address] Social History Tobacco Use Types Packs/Day Years [...] on filedocumented in this encounter Care Teams Press Tool Maker Relationship Specialty Start Date End Date [facility] 230 [place] [address] PCP - General 07/03/22 documented as of this encounter
--- OUTSIDE RECORDS SUMMARY | 2025-03-17 06:48 | XMS_ITS | Encounter Summary ---
Author Organization [employer] Address [address] [place] [address] 7 [place] [address] Care Team Providers Care Box Hinge And Lock Attacher Name Role Phone [place] [facility] Primary Care Provider Rebeka Hester PharmD Unavailable [phone] Encounter Details Date Type Department Care Team ([facility] Contact Info) Description 12/05/[address] [phone] [place] [address] [address] Social History Tobacco Use Types Packs/Day Years [...] Upcoming Encounters Date Type Department Care Team ([facility] Contact Info) Description 05/10/2025 10:30 AM EST Office Visit [address] [phone] Edwina Braxton FNP 230 [place] [address] documented as of this encounter Visit Diagnoses Not on filedocumented in this encounter Additional Health Concerns Assessment Noted Time PHQ-9 Depression Total Score: 0 06/28/19 23 11:27 AM EST documented as of this encounter Care Teams Box Hinge And Lock Attacher Relationship Specialty Start Date End Date Edwina Braxton FNP [address] [place] [address] PCP - General Family Medicine 03/01/21 Rebeka Hester PharmD [address] [place] [address] Pharmacist Internal Medicine 09/24/24 03/02/25 documented as of this encounter
--- OUTSIDE RECORDS SUMMARY | 2025-03-17 06:48 | XMS_ITS | Encounter Summary ---
Author Organization [employer] Address [address] [place] [address] 7 [place] [address] Care Team Providers Care Service Electrician Name Role Phone [place] [facility] Primary Care Provider [phone] Rebeka Hester PharmD Unavailable Encounter Details Date Type Department Care Team ([facility] Contact Info) Description 12/05/[address] [phone] [place] [address] [address] Social History Tobacco Use Types Packs/Day Years [...] [facility] Contact Info) Description 05/10/2025 10:30 AM EST Office Visit [address] [phone] Edwina Braxton FNP 230 [place] [address] documented as of this encounter Visit Diagnoses Not on filedocumented in this encounter Additional Health Concerns Assessment Noted Time PHQ-9 Depression Total Score: 0 06/28/19 23 11:27 AM EST documented as of this encounter Care Teams Service Electrician Relationship Specialty Start Date End Date Edwina Braxton FNP [address] [place] [address] PCP - General Family Medicine 03/01/21 Rebeka Hester PharmD [address] [place] [address] Pharmacist Internal Medicine 09/24/24 03/02/25 documented as of this encounter
--- OUTSIDE RECORDS SUMMARY | 2025-03-17 06:48 | XMS_ITS | Encounter Summary ---
Author Organization [employer] Address [address] [place] [address] 7t [place] [address] Care Team Providers Care Nurses' Registry Director Name Role Phone Irais [facility] Primary Care Provider [phone] Rebeka Hester PharmD Unavailable [phone] Reason for Referral * Consultation (Routine) - Authorized Specialty Diagnoses / Procedures Referred By Contac t Referred To Contact Pharmacy Diagnoses Type 2 diabetes mellitus with hyperglycemia, without long-term current use of insulin ([facility]) Laura Ferguson MD 230 [place] [address] Phone: tel: fax: Referral ID Status Reason Start Date Expiration Date Visits Requested Visits Authorized [id number] Authorized Consult and Treat 08/21/2024 08/21/2025 6 6 Encounter Details Date Type Department Care Team (Late st Contact Info) Description 08/21/2024 Orders Only [facility] MEDICINE 230 [place], [place] [phone] Laura Ferguson MD [address] [place], [place] [phone] Type 2 diabetes mellitus with hyperglycemia, without [...] Upcoming Encounters Date Type Department Care Team ([facility] st Contact Info) Description 05/10/2025 10:30 AM EST Office Visit [facility] MEDICINE 230 [place] [address] [facility], [facility] 230 [place] [address] Scheduled Referrals Name Type Priority Associated Diagnoses Orde r Schedule Referral to Pharmacy CDTM Outpatient Referral Routine Type 2 diabetes mellitus with hyperglycemia, without long-term current use of insulin ([facility]) Ordered: 08/21/2024 documented as of this encounter Visit Diagnoses Diagnosis Type 2 diabetes mellitus with hyperglycemia, without long-term current use of insulin ([facility])- Primary documented in this encounter Additional Health Concerns Assessment Noted Time PHQ-9 Depression Total Score: 4 07/29/19 25 10:06 AM EST documented as of this encounter Care Teams Nurses' Registry Director Relationship Specialty Start Date End Date Edwina Braxton FNP [address] [place] [address] PCP - General Family Medicine 03/01/21 Rebeka Hester PharmD [address] [place] [address] Pharmacist Internal Medicine 09/24/24 03/02/25 documented as of this encounter
--- OUTSIDE RECORDS SUMMARY | 2025-03-17 06:48 | XMS_ITS | Encounter Summary ---
Author Organization [employer] Address [address] [place] [address] 7t [place] [address] Care Team Providers Care Compensation Associate Name Role Phone [place] [facility] Primary Care Provider [phone] Rebeka Hester PharmD Unavailable [phone] Reason for Visit * Reason Onset Date Comments Recieved Call 08/30/2023 Encounter Details Date Type Department Care Team ([facility] st Contact Info) Description 08/30/2023 Telephone [facility] MEDICINE 230 [place], [place] [phone] [facility] 230 [place], [place] [phone] Recieved Call Social History Tobacco Use Types [...] pt stating received a call this morning, play writer didn't see any notations. documented in this encounter Plan of Treatment Upcoming Encounters Date Type Department Care Team (Late st Contact Info) Description 05/10/2025 10:30 AM EST Office Visit [facility] MEDICINE 230 [place] [address] Edwina Braxton FNP [address] [place] [address] documented as of this encounter Visit Diagnoses Not on filedocumented in this encounter Additional Health Concerns Assessment Noted Time PHQ-9 Depression Total Score: 0 08/23/19 24 9:11 AM EDT documented as of this encounter Care Teams Compensation Associate Relationship Specialty Start Date End Date Edwina Braxton FNP [address] [place] [address] PCP - General Family Medicine 03/01/21 Rebeka Hester, Wendy [address] [place] [address] Pharmacist Internal Medicine 09/24/24 03/02/25 documented as of this encounter
--- OUTSIDE RECORDS SUMMARY | 2025-03-17 06:48 | XMS_ITS | Encounter Summary ---
Author Organization [employer] Address [address] [place] [address] 7 [place] [address] Care Team Providers Care Soda Jerker Name Role Phone [facility] Primary Care Provider [phone] Rebeka Hester PharmD Unavailable [phone] Reason for Visit * Reason Onset Date Comments Appointment Request 02/11/2025 Encounter Details Date Type Department Care Team ([facility] st Contact Info) Description 02/11/2025 Telephone [facility] MEDICINE 230 [place], [place] [phone] [facility] 230 [place], [place] [phone] Appointment Request Social History Tobacco Use Types Packs/Day Years [...] encounter Miscellaneous Notes * Telephone Encounter - Negrito Clifton - 02/11/2025 1:37 PM EDT Tc from pt requesting to reschedule CDTM at on 02/15 Contact pt at [phone] documented in this encounter Plan of Treatment Upcoming Encounters Date Type Department Care Team (Late st Contact Info) Description 05/10/2025 10:30 AM EST Office Visit [facility] MEDICINE [address] [place] [address] [facility] [address] [place] [address] documented as of this encounter Visit Diagnoses Not on filedocumented in this encounter Additional Health Concerns Assessment Noted Time PHQ-9 Depression Total Score: 0 02/09/20 25 10:53 AM EDT documented as of this encounter Care Teams Soda Jerker Relationship Specialty Start Date End Date ManEdwina [facility] [address] [place] [address] PCP - General Family Medicine 03/01/21 Rebeka Hester PharmD [address] [place] [address] Pharmacist Internal Medicine 09/24/24 03/02/25 documented as of this encounter
--- OUTSIDE RECORDS SUMMARY | 2025-03-17 06:48 | XMS_ITS | Encounter Summary ---
Author Organization [employer] Address [address] [place] [address] 7 [place] [address] Care Team Providers Care Paper Cone Maker Name Role Phone [place] [facility] Primary Care Provider [phone] Rebeka Hester PharmD Unavailable [phone] Encounter Details Date Type Department Care Team ([facility] Contact Info) Description 12/05/[address] [phone] [place] [address] [address] Social History Tobacco Use Types Packs/Day Years [...] Upcoming Encounters Date Type Department Care Team ([facility] Contact Info) Description 05/10/2025 10:30 AM EST Office Visit [address] [phone] Edwina Braxton FNP [address] [place] [address] documented as of this encounter Visit Diagnoses Not on filedocumented in this encounter Additional Health Concerns Assessment Noted Time PHQ-9 Depression Total Score: 0 06/28/19 23 11:27 AM EST documented as of this encounter Care Teams Paper Cone Maker Relationship Specialty Start Date End Date Edwina Braxton FNP [address] [place] [address] PCP - General Family Medicine 03/01/21 Rebeka Hester PharmD [address] [place] [address] Pharmacist Internal Medicine 09/24/24 03/02/25 documented as of this encounter
--- OUTSIDE RECORDS SUMMARY | 2025-03-17 06:48 | XMS_ITS | Encounter Summary ---
Author Organization [employer] Address [address] [place] [address] 7 [place] [address] Care Team Providers Care Crayon Grader Name Role Phone [place] [facility] Primary Care Provider [phone] Rebeka Hester PharmD Unavailable [phone] Encounter Details Date Type Department Care Team ([facility] Contact Info) Description 12/05/[address] [phone] Adrian [address] [address] Social History Tobacco Use Types Packs/Day Years [...] Upcoming Encounters Date Type Department Care Team ([facility] Contact Info) Description 05/10/2025 10:30 AM EST Office Visit [address] [phone] Edwina Braxton FNP 230 [place] [address] documented as of this encounter Visit Diagnoses Not on filedocumented in this encounter Additional Health Concerns Assessment Noted Time PHQ-9 Depression Total Score: 0 06/28/19 23 11:27 AM EST documented as of this encounter Care Teams Crayon Grader Relationship Specialty Start Date End Date Edwina Braxton FNP [address] [place] [address] PCP - General Family Medicine 03/01/21 Rebeka Hester PharmD [address] [place] [address] Pharmacist Internal Medicine 09/24/24 03/02/25 documented as of this encounter
--- OUTSIDE RECORDS SUMMARY | 2025-03-17 06:48 | XMS_ITS | Encounter Summary ---
Author Organization [facility] Address [address] [place] [address] Phone Care Team Providers Care Bike Designer Name Role Phone [facility] Primary Care Provider [phone] Encounter Details Date Type Department Care Team (Late st Contact Info) Description 12/26/2021 Documentation Only [facility] [place], [address] [place] [address] [facility] [address] [place] [address] Social History Tobacco Use Types Packs/Day Years [...] on filedocumented in this encounter Care Teams Bike Designer Relationship Specialty Start Date End Date [facility] [address] [place] [address] PCP - General 07/03/22 documented as of this encounter
--- OUTSIDE RECORDS SUMMARY | 2025-03-17 06:48 | XMS_ITS | Encounter Summary ---
Author Organization [facility] Address [address] [place] [address] Phone Care Team Providers Care Outdoor Adventure Leader Name Role Phone [facility] Primary Care Provider [phone] Encounter Details Date Type Department Care Team (Late st Contact Info) Description 12/26/2021 Documentation Only [facility] [place], [address] [place] [address] [facility] [address] [place] [address] Social History Tobacco Use Types Packs/Day Years [...] on filedocumented in this encounter Care Teams Outdoor Adventure Leader Relationship Specialty Start Date End Date [facility] [address] [place] [address] PCP - General 07/03/22 documented as of this encounter
--- OUTSIDE RECORDS SUMMARY | 2025-03-17 06:48 | XMS_ITS | Clinical Summary ---
Author Organization [employer] Address [address] [place] [address] [address] [place] [address] Care Team Providers Care Recreation Director Name Role Phone Edwina Braxton [facility] Primary Care Provider [phone] Allergies Active Allergy Reactions Criticality Noted Date Comments Covid-19 (Mrna) Vaccine Other Medium 09/24/2024 Reports having a stroke after the first covid vaccine and issues after the second one. May not be vaccine related but patient will not get another covid vaccine. Penicillin G 02/12/2022 Penicillin V Other reaction(s): questionable Medications * This document contains information received [...] without long-term current use of insulin (HCC) Use as directed to check blood sugar four times daily 1 each 04/24/20 23 Active metFORMIN XR (Glucophage-XR) 500 MG 24 hr tabletIndicatio ns:Type 2 diabetes mellitus with hyperglycemia, without long-term current use of insulin (HCC) TAKE 1 TABLET DAILY BY MOUTH. IF TOLERATING WELL MAY INCREASE TO 1 TABLET TWICE DAILY 180 tablet 1 02/14/20 24 Active Aspirin Low Dose 81 MG EC tabletIndicatio ns:Type 2 diabetes mellitus with hyperglycemia, without long-term current use of insulin (HCC) TAKE 1 TABLET (81 MG) BY MOUTH IN THE MORNING 90 tablet 3 03/30/20 24 025 Active Alcohol Swabs (Alcohol Prep) 70 % padsIndications :Type 2 diabetes mellitus with hyperglycemia, without long-term current use of insulin (HCC) USE TO CHECK BLOOD SUGAR FOUR TIMES A DAY 100 each 11 06/01/20 24 Active FreeStyle lancetsIndicati ons:Type 2 diabetes mellitus with hyperglycemia, without long-term current use of insulin (HCC) USE DIRECTED TO CHECK BLOOD SUGAR FOUR TIMES DAILY 100 each 5 06/10/19 25 Active amLODIPine (Norvasc) 10 MG tabletIndicatio ns:Primary hypertension TAKE 1 TABLET BY MOUTH EVERY MORNING 90 tablet 3 06/15/19 25 Active insulin pen needle (B-D UF III MINI PEN NEEDLES) 31G x 5 mm miscIndications :Type 2 diabetes mellitus with hyperglycemia, without long-term current use of insulin (HCC) USE INSTRUCTED once a day 100 each 3 07/30/19 25 Active escitalopram (Lexapro) 20 MG tabletIndicatio ns:Anxiety and depression TAKE 1 TABLET (20 MG) BY MOUTH ONCE PER DAY. OK TO INCREASE TO 10MG IF TOLERATING WELL 90 tablet 1 09/19/19 25 026 Active Continuous Glucose Experimental Preflight Mechanic (FreeStyle Shivam 3 Murphy) deviceIndicatio ns:Type 2 diabetes mellitus with hyperglycemia, with long-term current use of insulin (HCC) 1 each Once per day. Use as directed for CGM 1 each 09/25/19 25 Active Continuous Glucose Sensor (FreeStyle Shivam 3 Plus Sensor) miscIndications :Type 2 diabetes mellitus with hyperglycemia, with long-term current use of insulin (HCC) Apply 1 every 15 days as directed for CGM 2 each 09/25/19 25 Active glucose blood (FreeStyle Precision Jericho Test) test stripIndication s:Type 2 diabetes mellitus with hyperglycemia, with long-term current use of insulin (HCC) Use to test blood sugar 3 times daily in case of CGM failure or extremes of BG 100 each 11 09/25/19 25 Active Eliquis 5 MG tabletIndicatio ns:History of stroke TAKE 1 TABLET BY MOUTH TWICE A DAY IN THE MORNING AND IN THE EVENING 60 tablet 3 11/19/19 25 Active atorvastatin (Lipitor) 80 MG tabletIndicatio ns:History of stroke TAKE 1 TABLET (80 MG) BY MOUTH IN THE MORNING 90 tablet 1 12/03/19 25 Active olmesartan (BENIcar) 5 MG tabletIndicatio ns:Primary hypertension TAKE 2 TABLETS BY MOUTH EVERY MORNING 180 tablet 1 12/03/19 25 Active pantoprazole (ProtoNix) 40 MG EC tabletIndicatio ns:History of stroke TAKE 1 TABLET (40 MG) BY MOUTH BEFORE BREAKFAST 90 tablet 1 12/03/19 25 Active nicotine (Nicoderm, Step 1) 21 MG/24HR patch PLACE 1 PATCH ON THE SKIN 1 TIME EACH DAY AT THE SAME TIME. 28 patch 3 01/22/20 25 Active Tirzepatide (Mounjaro) 15 MG/0.5ML solution auto-injector Inject 15 mg under the skin 1 (one) time per week. 2 mL 11 01/26/20 25 Active pioglitazone (Actos) 30 MG tablet Take 1 tablet (30 mg) by mouth Once per day. 90 tablet 3 02/03/20 25 026 Active lidocaine (Lidoderm) 5 % patchIndication s:Neuralgia APPLY 1 PATCH IN THE MORNING REMOVE AND DICSARD PATCH WITHIN 12 HOURS OR DIRECTED 90 patch 3 02/13/20 25 Active LORazepam (Ativan) 0.5 MG tabletIndicatio ns:Anxiety and depression TAKE 1 TABLET (0.5 MG) BY MOUTH EVERY 6 (SIX) HOURS IF NEEDED FOR ANXIETY. 10 tablet 02/13/20 25 Active insulin glargine (Toujeo Max SoloStar) 300 UNIT/ML injection Inject 120 Units under the skin at bedtime. And increase by 2 units every 2 days until max of 132 units per day. 6 mL 3 03/03/20 25 026 Active insulin lispro (HumaLOG KWIKPEN) 100 UNIT/ML injectionIndica tions:Type 2 diabetes mellitus with hyperglycemia, with long-term current use of insulin (HCC) Inject 10 units subQ 2 times daily with lunch and dinner. 15 mL 2 03/03/20 25 Active insulin glargine (Toujeo Max SoloStar) 300 UNIT/ML injection Inject 92 Units under the skin at bedtime. And increase by 2 units every 2 days until max of 106 units per day. 6 mL 3 02/03/20 25 025 Discontinued(R eorder (will not trigger notification to Pharmacy)) insulin lispro (HumaLOG KWIKPEN) 100 UNIT/ML injectionIndica tions:Type 2 diabetes mellitus with hyperglycemia, with long-term current use of insulin (HCC) Inject 6 units subQ 2 times daily with lunch and dinner. 15 mL 2 02/03/20 25 025 Discontinued(R eorder (will not trigger notification to Pharmacy)) Active Problems Problem Noted Date Diagnosed Date Cerebral atherosclerosis 02/05/2023 Tobacco use 12/12/2022 Type 2 diabetes mellitus wit h hyperglycemia, without long-term current use of insulin 08/07/2022 Overview (06/10/2023): Metformin 500mg XR Trulicity 4.5mg SQ Lantus 15 units Jay OSBORNE initiated A1c 02/22/23-9.3% BMP: 06/2022, WNL Microalbumin: Pending Foot Exam: Complete at follow up Eye Exam: Referred 04/03/2023 Lipid panel: 11/2022 Statin: Yes ASA: No KINDRA/ARB: No Encouraged regular aerobic exercise for improved glycemic control Encouraged daily foot checks Encouraged lean protein snacks and to avoid foods high in sugar and simple carbohydrates Treatment Goals: A1c goal: <7% FBG goal: <130 2 hour post prandial goal: <180 Assessment & Plan (06/10/2023 11:59 AM EST): Lab Results Component Value Date HGBA1C 10.1 (A) 04/22/2023 BS data not available today Pt OK to self increase by 2 units lantus q 3 days until FBG in morning <130 Will order CGM and check on status of jay OSBORNE Assessment & Plan (05/05/2023 10:54 AM EST): Lab Results Component Value Date HGBA1C 10.1 (A) 04/22/2023 START lantus 15 units at bedtime Will initiate PA for jay morgan Accepts referral to [facility] DM educator Assessment & Plan (04/03/2023 2:55 PM EDT): Lab Results Component Value Date HGBA1C 9.1 (A) 03/18/2023 A1c improving INCREASE trulicity to 4.5mg subcutaneous Consider switch to mounjaro at follow up Assessment & Plan (02/05/2023 1:07 PM EDT): Lab Results Component Value Date HGBA1C 9.3 (A) 01/14/2023 A1c improving from 9.5 INCREASE trulicity to 3mg Declines referral to DM educator Assessment & Plan (11/07/2022 9:58 AM EDT): Lab Results Component Value Date HGBA1C 9.5 (A) 11/06/2022 START trulicity .75mg subcutaneous. Reviewed administration, risks, side effects CONTINUE metformin 500mg daily. Pt unable to tolerate higher dose Plan to titrate trulicity up to 1.5mg subcutaneous in 2 weeks Assessment & Plan (08/17/2022 9:59 AM EDT): Lab Results Component Value Date HGBA1C 7.2 (H) 07/02/2022 Continue metformin 500mg XR; pt will self increase to twice daily if tolerating Assessment & Plan (08/17/2022 9:37 AM EDT): Lab Results Component Value Date HGBA1C 7.2 (H) 07/02/2022 Continue metformin 500mg XR; pt will self increase to twice daily if tolerating Smoking 1/2 pack a day or less 07/01/2022 Overview (07/01/2022): Previously unable to tolerate chantix (side effects) Assessment & Plan (02/05/2023 12:13 PM EDT): Has patches/lozenges at home Declines referral to pharmacy for cessation Assessment & Plan (08/17/2022 10:00 AM EDT): Continue nicotine lozenges Assessment & Plan (07/01/2022 3:20 PM EST): Pt highly motivated for cessation START nicotine replacement lozenges Healthcare maintenance 07/01/2022 Overview (04/03/2023): C-Scope: Cologuard negative 11/2022 HCV Screen: neg 06/2022 HIV Screen: Neg 06/2022 Vision Exam:Referral placed 04/2023 Dental Care: Discuss at follow up Immunizations: Declines flu and covid due to prior reactions Assessment & Plan (11/07/2022 9:59 AM EDT): Cologuard did not arrive Will re order today Accepts PCV20 Declines COVID booster. Assessment & Plan (08/17/2022 10:00 AM EDT): Will reorder cologuard today Neuralgia 07/01/2022 Overview (02/05/2023): Unable to tolerate pregabalin or gabapentin (dizziness). Trialed duloxetine w/o improvement Lidocaine patches helpful Persistent right UE pain/tingling/weakness since initial CVA02/2022 RUE Nerve conduction with mild medial neuropathy and chronic right lower cervical radiculopathy Previously seen by [facility] ?10/2021 who did not feel paitent was a good candidate for services at the time. Patient is not interested in additional pain mngmt eval. Assessment & Plan (04/03/2023 2:52 PM EDT): Reviewed treatment options with patient including physical therapy and referral to pain mngmt. Pt declines further outside referrals at this time Pt interested in trial of alternative treatment. Pt open to trigger point injection. Will refer patient to Dr. Ferguson for appointment Continue ALA supplementation Assessment & Plan (02/05/2023 1:03 PM EDT): Reviewed treatment options with patient including physical therapy and referral to pain mngmt. Pt declines further outside referrals at this time Pt interested in trial of alternative treatment. Pt open to trigger point injection. Will refer patient to Dr. Ferguson for appointment Continue ALA supplementation Assessment & Plan (08/07/2022 1:30 PM EST): Lidocaine patches refilled Anxiety and depression 07/01/2022 Overview (05/05/2023): Ativan PRN for panic attacks Assessment & Plan (05/05/2023 10:56 AM EST): START lexapro 5mg daily-increase to 10mg daily if tolerating well Reviewed administration, risks, side effects to include [...] multiple medications for depression or anxiety simultaneously. Refill ativan. PDMP reviewed. Medicaiton used sparingly by patient. Declines referral to [facility] Cerebrovascular accident (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 CT of head/neck at this time with s ubtle hypodensity in the right globus pallidus or genu of the right internal capsule compatible with age indeterminate lacunar infarct. MRI w/ no acute changes w/ r ight basal ganglia lacunar infarct and periventricular white matter disease, new from prior but chronic in nature. Chronic left posterior medullary infarct noted . Seen at [facility] 11/22/22 with right sided weakness. CTA h/n with anterior cerebral artery atherosclerosis but no large vessel occlusion. Brain MRI with subacute right frontal infarct and left front periventricular subacute infarct. EKG NSR, A1c 9.0, LDL 47. Sx self-resolved 11/23/22. ASA 81mg added to daily regimen in addition to eliquis. Assessment & Plan (05/05/2023 11:01 AM EST): Will request lab results for hypercoag work up from [facility] Continue ASA and eliquis Assessment & Plan (04/03/2023 2:47 PM EDT): Continue daily ASA 81mg Continue eliquis 5mg daily Encouraged smoking cessation and weight loss Assessment & Plan (02/05/2023 12:11 PM EDT): Will request recent [facility] echo and MRI report Follow up as scheduled with neurology Continue daily ASA 81mg and eliquis Continue high dose statin therapy ED precautions reviewed to include facial drooping, numbness/weakness in extremities that is changed from baseline Hypertension 02/12/2022 Overview (01/14/2023): Olmesartan 5mg daily Amlodipine 10mg Previous intolerance to multiple agents due to [...] Assessment & Plan (05/05/2023 10:52 AM EST): INCREASE olmesartan to 10mg daily Continue amlodipine 10mg daily Goal BP <130/80 Assessment & Plan (04/03/2023 2:50 PM EDT): BP elevated INCREASE amlodipine to 10mg daily Assessment & Plan (02/05/2023 12:12 PM EDT): BP with mild elevation in office. Pt asx. Will hold off on any medication changes given patient's previous intolerance. Pt will continue to monitor Pt will focus on low-sodium diet and tobacco cessation Assessment & Plan (11/07/2022 9:56 AM EDT): RESTART olmesartan 5mg daily RN BP check 2 weeks Routine labs ordered Assessment & Plan (08/17/2022 9:35 AM EDT): BP remains slightly above goal. Discussed option of increasing v trying alternate agent however patient prefers to continue current dose and focus on lifestyle interventions Continue torsemide 10mg daily Assessment & Plan (08/07/2022 1:29 PM EST): Continue torsemide 10mg daily Continue to monitor BP Assessment & Plan (07/01/2022 3:18 PM EST): Blood pressure not within goal. Given that patient frequently experiences dependent edema, will trial low dose of torsemide. Will also refer back to nephrology as patient will benefit from ambulatory BP monitoring. START torsemide 10mg daily, reviewed administration, risks, side effects Continue to monitor BP at home. Will call patient for 2 week tele follow up with repeat BMP at this time Hyperlipidemia 07/28/2021 Overview (07/01/2022): Atorvastatin 80mg daily Severe obesity (CMS/HCC) 07/28/2021 Assessment & Plan (07/01/2022 3:19 PM EST): Pt provided with info for education session at [facility] Referral placed for bariatric surgery Paroxysmal atrial fibrillation ([facility]/HCC) 022 Overview (07/01/2022): Stable on eliquis Resolved Problems Problem Noted Date Diagnosed Date Resolved Date Prediabetes 07/28/2021 08/07/2022 Encounters Date Type Department Care Team Description 03/15/2025 Telephone [facility] MEDICINE [address] [place] [address] Edwina Braxton FNP Dec recall 03/10/2025 Orders Only GENERIC EXTERNAL DATA DEPARTMENT Provider, Generic External Data 03/03/2025 Travel 03/02/2025 Travel 02/11/2025 Telephone [facility] [address] [place] [address] Irais, Edwina, NURSES' AIDE Appointment Request 02/11/2025 Refill [facility] [address] [place] [address] Madiha Boyd DO Anxiety and depression 02/11/2025 Refill [facility] [address] [place], [place] [address] Edwina BraxtonCASSANDRA Neuralgia 02/08/2025 10:30 AM EDT Office Visit [facility] [address] [place] [address] Irais Edwina, CASSANDRA Type 2 diabetes mellitus with hyperglycemia, with long-term current use of insulin (CMS/HCC) (Primary Dx); Primary hypertension 02/08/2025 Travel 02/05/2025 Telephone [facility] MED[facility]INE [address] [place] [address] IraisEdwina FNP Chart Prep 02/03/2025 Orders Only [facility] [address] [place] [address] Irais CASSANDRA Bland Type 2 diabetes mellitus with hyperglycemia, without long-term current use of insulin (CMS/HCC) (Primary Dx) 02/02/2025 2:30 PM EDT Telemedicine [facility] [address] [place] [address] Rebeka Hester PharmD Type 2 diabetes mellitus with hyperglycemia, with long-term current use of insulin (CMS/HCC) 02/02/2025 Travel 01/29/2025 Travel 01/25/2025 Travel 01/20/2025 Refill [facility] [address] [place] [address] Laura Ferguson MD 01/14/2025 Travel 12/28/2024 9:45 AM EDT Office Visit [facility] [address] [place] [address] Edwina Braxton FNP Type 2 diabetes mellitus with hyperglycemia, with long-term current use of insulin (CMS/HCC) (Primary Dx); Chest wall abscess 12/28/2024 Travel 12/27/2024 Travel 12/24/2024 Telephone [facility] MEDICINE [address] [place] [address] Edwina Braxton FNP chart prep 12/21/2024 Patient Outreach [facility] [address] [place] [address] [place], [place], [facility] Pre-visit Planning ([facility] unable to reach [facility] ) from Last 3 Months Immunizations Immunization Administration Dates Next Due Hep A, Adult 09/24/2024 Hep B, adult 08/23/2021,,01/27/2003,09/09/2002,,12/19/2001 MMR 12/19/2001 PPD [...] Sign Reading Time Taken Comments Blood Pressure 144/82 03/03/2025 10:24 AM EDT Pulse 96 03/03/2025 10:24 AM EDT Temperature 36.2 C (97.2 F) 02/08/2025 10:52 AM EDT Respiratory Rate 20 02/08/2025 10:52 AM EDT Oxygen Saturation 98% 09/28/2024 10:01 AM EDT Inhaled Oxygen Concentration - - Weight 155 kg (342 lb) 02/08/2025 10:52 AM EDT Height 177.8 cm (5' 10 ) 02/08/2025 10:52 AM EDT Body Mass Index 49.07 02/08/2025 10:52 AM EDT Plan of Treatment Upcoming Encounters Date Type Department Care Team (Late st Contact Info) Description 05/10/2025 10:30 AM EST Office Visit [facility] [address] [place] [address] [facility] [address] [place] [address] Health Maintenance Due Date Last Done Comments CT Colonography 1976 Colonoscopy 1976 Colorectal Cancer Screening 1976 FIT DNA/Cologuard 1976 FIT 1976 FOBT 1976 Sigmoidoscopy 1976 Eye Exam 1986 Family Planning (PISQ) 12/02/1991 COVID-19 Vaccine ( season) 2025 06/10/2021, 08/29/2020, 08/07/2020 Influenza Vaccine (#1) 2025 Diabetes: Hemoglobin A1C 03/30/2025 025, 09/24/2024, 08/28/2024, Additional history exists SDOH Screening 07/15/2025 07/15/2024 Disability Screening 07/28/2025 07/28/2024 Lipid Panel 09/24/2025 09/24/2024, 06/0 11/2022, 07/02/2022, Additional history exists Alcohol/Substance Use Screening 12/28/2025 12/28/2024 Diabetes: Foot Exam 12/28/2025 12/28/2024, 12/28/2024, 08/23/2023, Additional history exists Depression Screening 02/08/2026 02/08/2025, 02/09/20 Tobacco Screening 02/08/2026 02/08/2025 Zoster Vaccines (1 of 2) 2026 DTaP/Tdap/Td Vaccines (2 - Td or Tdap) 08/24/2031 08/23/2021, 12/19/2001 RSV Patients and Patients Aged 60 years or older (1 - 1-dose 75+ series) 12/02/2051 HIV Screening Completed 07/14/2021 Hepatitis C Screening Completed 07/14/2021 Hepatitis B Vaccines Completed 08/23/2021, 07/26/2021, 01/27/2003, Additional history exists Pneumococcal Vaccine: Pediatrics (0 to 5 Years) and At-Risk Patients (6 to 49) Years Completed 11/06/2022 Hepatitis A Vaccines Aged Out 09/24/2024 No long er eligible based on patient's age to complete this topic HIB Vaccines Aged Out No longer eligi ble based on patient's age to complete this topic HPV Vaccines Aged Out No longer eligi ble based on patient's age to complete this topic IPV Vaccines Aged Out No longer eligi ble based on patient's age to complete this topic Meningococcal B Vaccine Aged Out No l onger eligible based on patient's age to complete [...] Procedure Name Priority Date/Time Associated Diagnosis Comments GLUCOSE, WHOLE BLOOD Routine 03/10/2025 9:06 AM EDT POCT URINALYSIS DIPSTICK Routine 02/08/2025 11:13 AM EDT Type 2 diabetes mellitus with hyperglycemia, with long-term current use of insulin (CMS/HCC) POCT GLUCOSE Routine 02/08/2025 10:54 AM EDT Type 2 diabetes mellitus with hyperglycemia, with long-term current use of insulin (CMS/HCC) POCT GLUCOSE Routine 12/28/2024 10:45 AM EDT Type 2 diabetes mellitus with hyperglycemia, with long-term current use of insulin (CMS/HCC) POCT URINALYSIS DIPSTICK Routine 12/28/2024 10:34 AM EDT Type 2 diabetes mellitus with hyperglycemia, with long-term current use of insulin (CMS/HCC) POCT GLYCATED HEMOGLOBIN, TOTAL Routine 12/28/2024 9:56 AM EDT Type 2 diabetes mellitus with hyperglycemia, with long-term current use of insulin (CMS/[facility]) POCT GLUCOSE Routine 12/28/2024 9:53 AM EDT Type 2 diabetes mellitus with hyperglycemia, with long-term current use of insulin (CMS/HCC) LIPID PANEL, STANDARD Routine 09/24/2024 10:03 AM EDT Type 2 diabetes mellitus with hyperglycemia, with long-term current use of insulin (CMS/HCC) ZZZ HISTORICAL HEPATITIS C AB W/REFL TO HCV RNA, QN, PCR Routine 07/14/2021 10:33 AM EST HIV 1/2 ANTIGEN/ANTIBODY, FOURTH GENERATION W/RFL Routine 07/14/2021 10:33 AM EST from Last 3 Months or Most Recently Relevant to Health Maintenance Results * (ABNORMAL) Glucose, Whole Blood (03/10/2025 9:06 AM EDT) Glucose, Whole Blood 481(HH) 60 - 115 mg/dL [facility] Comment:METER #: [id number] 0Testing performed in the Endocrinology Department [address] , [address], [facility]. 03/10/2025 9:06 AM EDT 03/10/2025 9:12 AM EDT Generic External Data Provider LAB BLOOD ORDERAB LES Final Result [facility] [address] [place] [phone] * (ABNORMAL) POCT Urinalysis (02/08/2025 11:13 AM EDT) Only the most recent of2 resultswithin the time period is included. Color, UA Yellow Clarity, UA Clear Glucose, UA 4+ >500 Comment:500 Bilirubin, UA Negative Ketones, UA Negative Spec Grav, UA 1.005 Blood, UA Positive(A) Negative, None Detected pH, UA 5.5 Protein, UA Negative Urobilinogen, UA 0.2 Leukocytes, UA Negative Negative, Rare, Trace Nitrite, UA Negative Negative, None Detected Appearance, UA yellow Urine 02/08/2025 11:1 3 AM EDT [facility] POINT OF CARE TEST ENTER/EDIT ORDERABLES Final Result * (ABNORMAL) POCT Glucose (02/08/2025 10:54 AM EDT) Only the most recent of3 resultswithin the time period is included. Glucose Blood, POC 500(A) 60 - 200 mg/dL Comment:HHH Blood Capillary blood specimen / Unknown 02/08/2025 10:54 AM EDT [facility] POINT OF CARE TEST ENTER/EDIT ORDERABLES Final Result * (ABNORMAL) POCT HGB A1C (12/28/2024 9:56 AM EDT) Hemoglobin A1C 15.0(A) 4.0 - 5.7 % Comment:>15.0% QC Media Lot # [id number] Lot# Expiration Date Blood 12/28/2024 9:56 AM EDT [facility] POINT OF CARE TEST ENTER/EDIT ORDERABLES Final Result * (ABNORMAL) Lipid Panel, Standard (09/24/2024 10:03 AM EDT) Triglycerides 80 <150 mg/dL [facility] Comment:Desirable Triglyceri de: less than 150 mg/dLBorderline High Triglyceride 150-199 mg/dLHigh Triglyceride: 200-499 mg/dLVery High Triglyceride: greater than or equal to 5OO mg/dL Cholesterol 105 <200 mg/dL [facility] Comment:Desirable Cholestero l: less than 200 mg/dLBorderline High Cholesterol: 200-239 mg/dLHigh Cholesterol: greater than 239 mg/dL LDL Cholesterol Calculated 53 <100 mg/dL [facility] Comment:Desirable LDL: less than 100 mg/dLNear Optimal/Above Optimal LDL: 110- 129 mg/dLBorderline High LDL: 130-159 mg/dLHigh LDL: 160-189 mg/dLVery High LDL: greater than or equal to 190 mg/dL HDL Cholesterol 36(L) >40 mg/dL [facility] Comment:Desirable HDL: great er than 40 mg/dL Note: This HDL assay may give artificially low results in patients with liver disease. Blood Venous blood specimen / Unknown 09/24/2024 10:03 AM EDT 09/24/2024 11:13 AM EDT [facility] LAB BLOOD ORDERABLES Final Re sult [facility] [address] [place] [phone] * HEPATITIS C AB W/REFL TO HCV RNA, QN, PCR (07/14/2021 10:33 AM EST) HEPATITIS C ANTIBODY NON-REACT LUZMA NON-REACT LUZMA [facility] INDEX 0.69 <1.00 [facility] Comment: HCV antibody was non-reactive. There is no laboratory evidence of HCV infection. In most cases, no further action is required. However, if recent HCV exposure is suspected, a test for HCV RNA (test code 76998) is suggested. For additional information please refer to [email or web address]/faq/SBZ26d5 (This link is being provided for informational/ educational purposes only.) 07/14/2021 10:3 3 AM EST [facility] NURSES' AIDE HISTORICAL/NON ORDERABLE LABS Final Result [facility] [address] * HIV 1/2 ANTIGEN/ANTIBODY,FOURTH GENERATION W/RFL (07/14/2021 10:33 AM EST) HIV-1/2 ANTIGEN AND ANTIBODIES, 4TH GENERATION W/ REFLEX NON-REACT LUZMA NON-REACT LUZMA [facility] Comment: HIV-1 antigen and HIV-1/HIV-2 antibodies were not detected. There is no laboratory evidence of HIV infection. PLEASE NOTE: This information has been disclosed to you from records whose confidentiality may be protected by state law. If your state requires such protection, then the state law prohibits you from making any further disclosure of the information without the specific written consent of the person to whom it pertains, or as otherwise permitted by law. A general authorization for the release of medical or other information is NOT sufficient for this purpose. For additional information please refer to http://education.[employer]/faq/ARK668 (This link is being provided for informational/ educational purposes only.) The performance of this assay has not been clinically validated in patients less than 2 years old. 07/14/2021 10:3 3 AM EST [facility] LAB BLOOD ORDERABLES Final Re sult [facility] [address] from Last 3 Months or Most Recently Relevant to Health Maintenance Insurance [employer] Care Teams Recreation Director Relationship Specialty Start Date End Date [facility] [address] [place] [address] PCP - General Family Medicine 03/01/21
== END 2025-03-17 06:46 | disposition home or self-care (01) ==
LOC: HO.LAB 06:45
PROVIDERS: PCP Registered Nurse; Visit Provider Student in an Organized Health Care Education/Training Program
DX: E11.69 Type 2 diabetes mellitus with other specified complication (principal); E66.01 Morbid (severe) obesity due to excess calories; E24.9 Cushing's syndrome, unspecified
CPT/HCPCS: 36415; 82533; 84443